=== PATIENT | female | born 1935 | race Caucasian/White ===

== ENCOUNTER → 2016-08-27 | Outpatient (CLI) | payer OTHER ==
[~2016-08-27] MED LIST: ALL100 PO; CLOP1TAB15 PO; COLE1TAB5 PO; CYNI1000 IM; ERGO500037 PO; HYDR-5688 PO; IMD2X PO; MAGN1TAB15 PO; MCR/40125 PO; POTA10CA28 PO; TMF75 PO; ZTHM250 PO
[2016-08-27 18:04] LABS: ALT/SGPT 13 U/L (12-78); AST/SGOT 12 U/L (15-37); BLOOD UREA NITROGEN 22 mg/dl (7-18); BUN/CREATININE RATIO 18.7 (10-20); CALCIUM 9.3 mg/dl (8.5-10.1); CARBON DIOXIDE 28 mmol/L (21-32); CHLORIDE 107 mmol/L (98-107); CHOLESTEROL 216 mg/dl (0-200); GLUCOSE 88 mg/dl (70-99); POTASSIUM 3.3 mmol/L (3.5-5.1); SODIUM 144 mmol/L (136-145); TRIGLYCERIDES 209 mg/dl (0-150); VERY LOW DENSITY LIPOPROT CALC 42 mg/dl
[2016-08-27 18:09] LABS: BASO % 0.6 %; BASO ABS # 0.04 K/uL (0-0.2); COMPLETE YES; EOS % 2.9 %; HEMATOCRIT 40.8 % (37-47); IG% 0.3 %; LYMPH % 20.4 %; LYMPH ABS # 1.39 K/uL (1.2-3.4); MEAN CELL VOLUME 92.5 fL (80-100); MEAN CORPUSCULAR HEMOGLOBIN 31.1 pg (25-34); MEAN CORPUSCULAR HGB CONC 33.6 g/dl (32-36); MEAN PLATELET VOLUME 10.2 fL (7.4-10.4); MONO % 7.3 %; NEUT % 68.5 %; PLATELET COUNT 291 K/uL (130-400); RED BLOOD COUNT 4.41 M/uL (4.2-5.4); WHITE BLOOD COUNT 6.81 K/uL (4.8-10.8)
[2016-08-27 18:14] LABS: CHOLESTEROL/HDL RATIO 2.6; HDL CHOLESTEROL 83 mg/dl; LDL CHOLESTEROL CALCULATED 91 mg/dl
== END | disposition home or self-care (01) ==
LOC: C.LABMFLN 14:50
PROVIDERS: ATTEND Family Medicine
DX: M81.8 Other osteoporosis without current pathological fracture (principal); I10 Essential (primary) hypertension; E53.8 Deficiency of other specified B group vitamins; E55.9 Vitamin D deficiency, unspecified; E78.5 Hyperlipidemia, unspecified

== ENCOUNTER 2016-09-02 18:18 | Inpatient (IN) | payer OTHER ==
[~2016-09-02] VITALS: Ht 152.4 cm; Wt 50.6 kg
[~2016-09-02 18:18] MED LIST changes: -ALL100 PO; -COLE1TAB5 PO; -HYDR-5688 PO; -POTA10CA28 PO; -TMF75 PO; -ZTHM250 PO
[2016-09-02] MEDS ORDERED: COLE1TAB5 PO (19:23)
[2016-09-02] MEDS ORDERED: HYDR-5688 PO (19:23)
[2016-09-02] MEDS ORDERED: POTA10CA28 PO (19:23)
[2016-09-02] MEDS ORDERED: SODIUM CHLORIDE 0.9% 500ML 500 ML IV STA (19:28)
[2016-09-02] MEDS ORDERED: ONDANSETRON INJ 2 MG/ML 2 ML VIAL IV STA (19:28)
[2016-09-02] MEDS ORDERED: SODIUM CHLORIDE 0.9% 1000ML 1,000 ML IV STA (19:28)
[2016-09-02] MEDS ORDERED: HYDROmorphone INJ 1 MG/ML SYR IV PRN (19:30)
[2016-09-02 19:36] LABS: BASO % 0.2 %; BASO ABS # 0.02 K/uL (0-0.2); COMPLETE YES; EOS % 0.4 %; HEMATOCRIT 42.1 % (37-47); IG% 0.2 %; LYMPH % 10.3 %; LYMPH ABS # 1.15 K/uL (1.2-3.4); MEAN CELL VOLUME 92.3 fL (80-100); MEAN CORPUSCULAR HEMOGLOBIN 31.4 pg (25-34); MONO % 10.3 %; NEUT % 78.6 %; PLATELET COUNT 387 K/uL (130-400); RED BLOOD COUNT 4.56 M/uL (4.2-5.4); WHITE BLOOD COUNT 11.14 K/uL (4.8-10.8)
[2016-09-02] MEDS ORDERED: HYDROmorphone INJ 0.5 MG/0.5 ML SYR ONE (19:43)
[2016-09-02 19:59] LABS: BUN/CREATININE RATIO 17.6 (10-20); CALCIUM 10.3 mg/dl (8.5-10.1); CREATININE 1.4 mg/dl (0.60-1.20); POTASSIUM 3.8 mmol/L (3.5-5.1)
--- NOTE | 2016-09-02 20:28 | DIAGNOSTIC IMAGING REPORT ---
ABDOMEN AND PELVIS CT WITHOUT CONTRAST CT DOSE: 243.14 mGy.cm HISTORY: diffuse upper abdominal pain, vomiting, prior sylvia. ?obs TECHNIQUE: Multiaxial CT images of the abdomen and pelvis were performed without contrast. COMPARISON STUDY: PET CT 03/06/2016. FINDINGS: Mild dependent changes seen at the lung bases. Stable 5 mm triangular shaped nodule within the right middle lobe. The configuration is unlikely to represent a metastatic nodule. No pneumoperitoneum. No pneumatosis. No suspicious lytic or blastic osseous lesions. Suboptimal evaluation of the abdomen and pelvis due to the lack of intravenous and oral contrast. No definite hepatic or splenic masses. The unenhanced adrenal glands, pancreas, and right kidney are unremarkable. No hydronephrosis. Stable 12 mm exophytic hypodense lesion within the lower pole the left kidney. This is incompletely characterized on this noncontrast study but favors a cyst. No retroperitoneal lymphadenopathy. The bladder is unremarkable. The uterus is surgically absent. Prior cholecystectomy. Fluid-filled nondistended colon. No bowel wall thickening. The appendix is not identified and may be surgically absent. Multiple mildly dilated fluid-filled loops of bowel seen throughout the majority of the abdomen. There is a transition point within the right lower quadrant of the distal ileum on image 300 of 396. Therefore, this is consistent with a small bowel obstruction. IMPRESSION: Small bowel obstruction with a transition point located within the distal ileum at the right lower quadrant. Additional findings as described above. Electronically signed by: Jarrell Emery M.D. 09/02/2016 8:26 PM Dictated Date/Time: 09/02/2016 8:12 PM
[2016-09-02] MEDS ORDERED: ACETAMINOPHEN IV 100 ML IV PRN (22:45)
[2016-09-02] MEDS ORDERED: ONDANSETRON INJ 2 MG/ML 2 ML VIAL IV PRN (22:45)
--- NOTE | 2016-09-02 23:10 | EMERGENCY ROOM VISIT NOTE ---
History Report prepared by Ciroibe: Madeleine English Under the Supervision of: Dr. Barber Flores M.D. First contact with patient: 19:13 Chief Complaint: NAUSEA Stated Complaint: PAIN IN STOMACH, AND BACK THROWING UP Nursing Triage Summary: Upper abd pain thats radiates to back, started friday. Vomiting since yesterday due to the pain. Denies diarrhea. History of Present Illness The patient is a 81 year old female who presents to the Emergency Room with complaints of worsening mid to upper abdominal pain for the past 3 days. She is accompanied by her and daughter. She rates her discomfort as a 7/10 to a 9/10 and notes the pain radiates into her back. Yesterday she started vomiting because of the amount of pain she has been in. She denies any diarrhea or recent sick contacts, but admits to experiencing the chills over the past few days. She also reports her appetite has been poor recently due to the nausea and pain. The patient has undergone a cholecystectomy but still has her appendix. Her daughter notes she has a history of diverticulosis and kidney stones, but the patient states the current pain she is experiencing is unlike anything she has felt before, as it has lasted much longer. The patient denies LOC, headache, fevers, diaphoresis, visual changes, neck pain, chest pain, breathing difficulties, melena, hematochezia, urinary symptoms, numbness, weakness, lymphadenopathy, rash, or other complaints. 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 A total of ten systems were reviewed and were otherwise negative. Past Medical & Surgical Medical Problems: (1) Diverticulosis (2) Kidney stones (3) SBO (small bowel obstruction) Social History Smoking Status: Never Smoker Alcohol Use: none Drug Use: none Marital Status: Housing Status: lives with family Occupation Status: retired Current/Historical Medications Scheduled Clopidogrel (Plavix), 75 MG PO DAILY Colestipol Hcl (Colestipol Hcl), 1 GM PO BID Cyanocobalamin (Cyanocobalamin), IM MONTHLY Ergocalciferol (Vitamin D 36222 Unit), 1 CAP PO WK Magnesium Chloride-Calcium (Slow Magnesium/Calcium), 1 TAB PO QAM Potassium Chloride (Micro-K Ext Rel), 10 MEQ PO DAILY Telmisartan/Hctz (Micardis Hct 40MG/12.5MG), 1 TAB PO QAM Scheduled PRN Hydrocodone/Acetaminophen 5MG/325MG ([place] 5MG/325MG), 1-2 TABLET PO QID PRN for Pain Loperamide Hcl (Imodium), 2 MG PO DAILY PRN for Diarrhea Allergies Coded Allergies: Lisinopril (Verified Adverse Reaction, Unknown, COUGH, 04/22/16) Physical Exam Vital Signs Date Time Temp Pulse Resp B/P Pulse Ox O2 Delivery O2 Flow Rate FiO2 09/02/16 22:05 71 20 113/60 98 Room Air 09/02/16 20:52 69 20 128/70 98 Room Air 09/02/16 19:51 90 20 136/72 92 Room Air 09/02/16 18:21 36.7 90 17 143/70 96 Room Air Physical Exam GENERAL: Awake, alert, uncomfortable-appearing, in no distress HENT: Normocephalic, atraumatic. Oropharynx unremarkable. EYES: Normal conjunctiva. Sclera non-icteric. NECK: Supple. No nuchal rigidity. FROM. No JVD. RESPIRATORY: Clear to auscultation. CARDIAC: Regular rate, normal rhythm. Extremities warm and well perfused. Pulses equal. ABDOMEN: Soft, non-distended. RLQ and periumbilical tenderness to palpation. No rebound or guarding. No masses. RECTAL: Deferred. MUSCULOSKELETAL: Chest examination reveals no tenderness. The back is symmetrical on inspection without obvious abnormality. There is no CVA tenderness to palpation. No joint edema. LOWER EXTREMITIES: Calves are equal size bilaterally and non-tender. No edema. No discoloration. NEURO: Normal sensorium. No sensory or motor deficits noted. SKIN: No rash or jaundice noted. Medical Decision & Procedures ER Provider Diagnostic Interpretation: This CT scan was reviewed and interpreted by the radiologist and reviewed by myself. ABDOMEN AND PELVIS CT WITHOUT CONTRAST CT DOSE: 243.14 mGy.cm HISTORY: Diffuse upper abdominal pain, vomiting, prior sylvia. ?obs TECHNIQUE: Multiaxial CT images of the abdomen and pelvis were performed without contrast. COMPARISON STUDY: PET CT 03/06/2016. FINDINGS: Mild dependent changes seen at the lung bases. Stable 5 mm triangular shaped nodule within the right middle lobe. The configuration is unlikely to represent a metastatic nodule. No pneumoperitoneum. No pneumatosis. No suspicious lytic or blastic osseous lesions. Suboptimal evaluation of the abdomen and pelvis due to the lack of intravenous and oral contrast. No definite hepatic or splenic masses. The unenhanced adrenal glands, pancreas, and right kidney are unremarkable. No hydronephrosis. Stable 12 mm exophytic hypodense lesion within the lower pole the left kidney. This is incompletely characterized on this noncontrast study but favors a cyst. No retroperitoneal lymphadenopathy. The bladder is unremarkable. The uterus is surgically absent. Prior cholecystectomy. Fluid-filled nondistended colon. No bowel wall thickening. The appendix is not identified and may be surgically absent. Multiple mildly dilated fluid-filled loops of bowel seen throughout the majority of the abdomen. There is a transition point within the right lower quadrant of the distal ileum on image 300 of 396. Therefore, this is consistent with a small bowel obstruction. IMPRESSION: Small bowel obstruction with a transition point located within the distal ileum at the right lower quadrant. Additional findings as described above. Electronically signed by: Jarrell Emery M.D. 09/02/2016 8:26 PM Dictated Date/Time: 09/02/2016 8:12 PM Laboratory Results 09/02/16 19:25 Red Blood Count 4.56, Mean Corpuscular Volume 92.3, Mean Corpuscular Hemoglobin 31.4, Mean Corpuscular Hemoglobin Concent 34.0, Mean Platelet Volume 10.0, Neutrophils (%) (Auto) 78.6, Lymphocytes (%) (Auto) 10.3, Monocytes (%) (Auto) 10.3, Eosinophils (%) (Auto) 0.4, Basophils (%) (Auto) 0.2, Neutrophils # (Auto ) 8.76, Lymphocytes # (Auto) 1.15, Monocytes # (Auto) 1.15, Eosinophils # (Auto ) 0.04, Basophils # (Auto) 0.02 09/02/16 19:25 Test 09/02/16 19:25 White Blood Count 11.14 K/uL (4.8-10.8) Red Blood Count 4.56 M/uL (4.2-5.4) Hemoglobin 14.3 g/dL (12.0-16.0) Hematocrit 42.1 % (37-47) Mean Corpuscular Volume 92.3 fL (80-100) Mean Corpuscular Hemoglobin 31.4 pg (25-34) Mean Corpuscular Hemoglobin Concent 34.0 g/dl (32-36) Platelet Count 387 K/uL (130-400) Mean Platelet Volume 10.0 fL (7.4-10.4) Neutrophils (%) (Auto) 78.6 % Lymphocytes (%) (Auto) 10.3 % Monocytes (%) (Auto) 10.3 % Eosinophils (%) (Auto) 0.4 % Basophils (%) (Auto) 0.2 % Neutrophils # (Auto) 8.76 K/uL (1.4-6.5) Lymphocytes # (Auto) 1.15 K/uL (1.2-3.4) Monocytes # (Auto) 1.15 K/uL (0.11-0.59) Eosinophils # (Auto) 0.04 K/uL (0-0.5) Basophils # (Auto) 0.02 K/uL (0-0.2) RDW Standard Deviation 44.2 fL (36.4-46.3) RDW Coefficient of Variation 13.1 % (11.5-14.5) Immature Granulocyte % (Auto) 0.2 % Immature Granulocyte # (Auto) 0.02 K/uL (0.00-0.02) Anion Gap 9.0 mmol/L (3-11) Est Creatinine Clear Calc Drug Dose 23.4 ml/min Estimated GFR () 41.3 Estimated GFR (Non- 35.6 BUN/Creatinine Ratio 17.6 (10-20) Calcium Level 10.3 mg/dl (8.5-10.1) Total Bilirubin 0.9 mg/dl (0.2-1) Direct Bilirubin 0.2 mg/dl (0-0.2) Aspartate Amino Transf (AST/SGOT) 13 U/L (15-37) Alanine Aminotransferase (ALT/SGPT) 17 U/L (12-78) Alkaline Phosphatase 114 U/L (45-117) Total Protein 7.2 gm/dl (6.4-8.2) Albumin 3.6 gm/dl (3.4-5.0) Lipase 126 U/L (73-393) Laboratory results reviewed by me Medications Administered Medications (Trade) Dose Ordered Sig/Felipa Route Start Time Stop Time Status Last Admin Dose Admin Ondansetron HCl 4 mg 4 mg NOW STAT IV 09/02/16 19:28 09/02/16 19:30 DC 09/02/16 19:47 4 MG Sodium Chloride 500 ml @ 999 mls/hr Q31M STAT IV 09/02/16 19:28 09/02/16 19:58 DC 09/02/16 19:47 999 MLS/HR Sodium Chloride (Nss 1000ml) 1,000 ml @ 125 mls/hr Q8H STAT IV 09/02/16 19:28 09/03/16 03:27 09/02/16 20:57 125 MLS/HR Hydromorphone HCl (Dilaudid Inj) 0.5 mg STK-MED ONCE .ROUTE 09/02/16 19:43 09/02/16 19:45 DC 09/02/16 19:43 0.5 MG ED Course 1923: The patient was evaluated in room C4. A complete history and physical exam was performed. 1927: NSS 1000 ml @ 125 mls/hr IV, NSS 500 ml @ 999 mls/hr IV, Zofran 4 mg IV. 1929: Dilaudid 0.5 mg IV. 1942: Dilaudid 0.5 mg IV. 2043: I reevaluated the patient. She is resting comfortably. I discussed my plan for her to remain in the hospital for further evaluation and management and she and her family verbalized complete understanding and agreement. 2051: I discussed the patient's case with Dr. Bonilla, [facility] Hospitalist. The patient will be further evaluated. Medical Decision Triage Nursing notes reviewed. The patient's presentation and history were concerning for abdominal pain. Etiologies such as appendicitis, diverticulitis, obstruction, inflammatory bowel disease, renal colic, PUD, biliary pathology, pancreatitis, mesenteric ischemia, aortic pathology, infections, genitourinary, UTI, perforated viscus, as well as others were entertained. Patient was evaluated. She was quite tender. Blood work was obtained. She was given Zofran and Dilaudid. She was hydrated. Her CBC revealed a mild leukocytosis of 11,000. Chemistry, LFTs and lipase were unremarkable. Urinalysis is pending. The patient has a small bowel traction on CT scan. On reassessment she was feeling much better. She will need further evaluation and management in the hospital. I did consult with the hospitalist service. The patient was evaluated for further treatment. The chart was completed utilizing [employer] Speech voice recognition software. Grammatical errors, random word insertions, pronoun errors, and incomplete sentences are an occasional consequence of this system due to software limitations, ambient noise, and hardware issues. Any formal questions or concerns about the content, text, or information contained within the body of this dictation should be directly addressed to the physician for clarification. Consults Time Called: 2041 Consulting Physician: Dr. Bonilla [facility] Hospitalist Returned Call: 2051 I discussed the patient's case with Dr. Bonilla [facility] Hospitalist. The patient will be further evaluated. Impression Primary Impression: Small bowel obstruction Scribe Attestation The scribe's documentation has been prepared under my direction and personally reviewed by me in its entirety. I confirm that the note above accurately reflects all work, treatment, procedures, and medical decision making performed by me. Departure Information Dispostion Being Evaluated By Hospitalist Referrals Mikel Sanford M.D. (PCP) Patient Instructions A Signature Page, [facility]
[2016-09-02 23:25] VITALS: BP 113/69; PULSE 77; TEMP 36.3; O2SAT 92; Ht 152.4 cm; Wt 50.6 kg
[2016-09-03] MEDS ORDERED: PIPERACILL/TAZOBAC IV 3.375 GM in DEXTROSE 5% 100ML IV STA (00:52)
[2016-09-03] MEDS ORDERED: PIPERACILL/TAZOBAC CONSULT ACTIVE PRN (01:00)
[2016-09-03] MEDS ORDERED: NURSING VERBAL MED ORDER ONE (02:00)
--- NOTE | 2016-09-03 02:26 | History and Physical ---
History & Physical Date & Time of Service: Sep 03, 2016 at 02:15 Chief Complaint: SBO Primary Care Physician: Mikel Sanford M.D. History of Present Illness Source: patient, family The patient is a 81-year-old female who presents to the emergency department with family with complaints of worsening umbilical epigastric area pain over the past 3 days, particular over the past 24 hours. Her family notes that she had some on and off episodes of this discomfort dating back to a month or more. She started to vomit yesterday and has not had anything significantly over the past 48 hours. She has no sick contacts or recent travels. She does have a history of a cholecystectomy. The patient has had diverticulosis and kidney stones in the past, but reports that this pain is unlike any of those occurrences previously. Social History Smoking Status: Never Smoker Smokeless Tobacco Use: No Alcohol Use: none Drug Use: none Marital Status: Housing status: lives with family Occupational Status: retired Multi-Drug Resistant Organisms History of MDRO: No Allergies Coded Allergies: Lisinopril (Verified Adverse Reaction, Unknown, COUGH, 04/22/16) Home Medications Scheduled Clopidogrel (Plavix), 75 MG PO DAILY Colestipol Hcl (Colestipol Hcl), 1 GM PO BID Cyanocobalamin (Cyanocobalamin), IM MONTHLY Ergocalciferol (Vitamin D 47409 Unit), 1 CAP PO WK Magnesium Chloride-Calcium (Slow Magnesium/Calcium), 1 TAB PO QAM Potassium Chloride (Micro-K Ext Rel), 10 MEQ PO DAILY Telmisartan/Hctz (Micardis Hct 40MG/12.5MG), 1 TAB PO QAM Scheduled PRN Hydrocodone/Acetaminophen 5MG/325MG ([place] 5MG/325MG), 1-2 TABLET PO QID PRN for Pain Loperamide Hcl (Imodium), 2 MG PO DAILY PRN for Diarrhea Review of Systems The patient denies chest pain, palpitations, shortness of breath, cough, lower extremity swelling, vision change, hearing change, sore throat, fevers, chills, sweats, blood in urine or stool, dysuria, urinary frequency or urgency, lightheadedness, dizziness, headache, rash, abnormal bruising or bleeding, imbalance, focal weakness, numbness or tingling in arms or legs, arthralgias or myalgias, back or neck pain, night sweats, or allergy symptoms. The review of systems is otherwise negative other than for that already noted above, and at least 10 systems have been reviewed. Physical Exam Vital Signs Date Time Temp Pulse Resp B/P Pulse Ox O2 Delivery O2 Flow Rate FiO2 09/02/16 23:25 Room Air 09/02/16 23:18 68 20 109/56 99 09/02/16 22:05 71 20 113/60 98 Room Air 09/02/16 20:52 69 20 128/70 98 Room Air 09/02/16 19:51 90 20 136/72 92 Room Air 09/02/16 18:21 36.7 90 17 143/70 96 Room Air The patient is awake, well-developed and adequately nourished, alert and oriented 3, normocephalic and atraumatic, lying in bed and in no acute distress. HEENT--PERRL, mucous membranes and oropharynx dry. Neck--supple, no JVD or bruits, thyroid normal, trachea midline, no adenopathy. Heart--normal S1 and S2, no extra beats, no murmurs, rubs or gallops. Lungs--clear bilaterally. no respiratory distress, no accessory muscle use. Abdomen--decreased bowel sounds, mildly firm, nontender post-Dilaudid IV. Extremities--no cyanosis, clubbing or edema. There are good distal pulses b/l. Dermatologic--normal skin turgor, normal color, warm and dry, no abnormal lymph nodes, no rash. Neurologic--cranial nerves II through XII grossly intact. Psychiatric--normal affect. Diagnostics Laboratory Results Results Past 24 Hours Test 09/02/16 19:25 Range/Units White Blood Count 11.14 4.8-10.8 K/uL Red Blood Count 4.56 4.2-5.4 M/uL Hemoglobin 14.3 12.0-16.0 g/dL Hematocrit 42.1 37-47 % Mean Corpuscular Volume 92.3 80-100 fL Mean Corpuscular Hemoglobin 31.4 25-34 pg Mean Corpuscular Hemoglobin Concent 34.0 32-36 g/dl Platelet Count 387 130-400 K/uL Mean Platelet Volume 10.0 7.4-10.4 fL Neutrophils (%) (Auto) 78.6 % Lymphocytes (%) (Auto) 10.3 % Monocytes (%) (Auto) 10.3 % Eosinophils (%) (Auto) 0.4 % Basophils (%) (Auto) 0.2 % Neutrophils # (Auto) 8.76 1.4-6.5 K/uL Lymphocytes # (Auto) 1.15 1.2-3.4 K/uL Monocytes # (Auto) 1.15 0.11-0.59 K/uL Eosinophils # (Auto) 0.04 0-0.5 K/uL Basophils # (Auto) 0.02 0-0.2 K/uL RDW Standard Deviation 44.2 36.4-46.3 fL RDW Coefficient of Variation 13.1 11.5-14.5 % Immature Granulocyte % (Auto) 0.2 % Immature Granulocyte # (Auto) 0.02 0.00-0.02 K/uL Sodium Level 144 136-145 mmol/L Potassium Level 3.8 3.5-5.1 mmol/L Chloride Level 102 98-107 mmol/L Carbon Dioxide Level 33 21-32 mmol/L Anion Gap 9.0 3-11 mmol/L Blood Urea Nitrogen 25 7-18 mg/dl Creatinine 1.40 0.60-1.20 mg/dl Est Creatinine Clear Calc Drug Dose 23.4 ml/min Estimated GFR () 41.3 Estimated GFR (Non- 35.6 BUN/Creatinine Ratio 17.6 10-20 Random Glucose 119 70-99 mg/dl Calcium Level 10.3 8.5-10.1 mg/dl Total Bilirubin 0.9 0.2-1 mg/dl Direct Bilirubin 0.2 0-0.2 mg/dl Aspartate Amino Transf (AST/SGOT) 13 15-37 U/L Alanine Aminotransferase (ALT/SGPT) 17 12-78 U/L Alkaline Phosphatase 114 45-117 U/L Total Protein 7.2 6.4-8.2 gm/dl Albumin 3.6 3.4-5.0 gm/dl Lipase 126 73-393 U/L Diagnostic Radiology Patient Name: MIGUEL TORRES Unit Number: [id number] Dictated: 09/02/162011 Transcribed: 09/02/16 2012 [facility] Printed Date/Time: [~ rep prt dt]/[~ rep prt tm] [~ rep ct labl] - [~ rep ct ivnm] [facility] [place] [address] Dictated: 09/02/162011 Transcribed: 09/02/162011 [facility] Printed Date/Time: [~ rep prt dt]/[~ rep prt tm] [~ rep ct labl] - [~ rep ct ivnm] ABDOMEN AND PELVIS CT WITHOUT CONTRAST CT DOSE: 243.14 mGy.cm HISTORY: diffuse upper abdominal pain, vomiting, prior sylvia. ?obs TECHNIQUE: Multiaxial CT images of the abdomen and pelvis were performed without contrast. COMPARISON STUDY: PET CT 03/06/2016. FINDINGS: Mild dependent changes seen at the lung bases. Stable 5 mm triangular shaped nodule within the right middle lobe. The configuration is unlikely to represent a metastatic nodule. No pneumoperitoneum. No pneumatosis. No suspicious lytic or blastic osseous lesions. Suboptimal evaluation of the abdomen and pelvis due to the lack of intravenous and oral contrast. No definite hepatic or splenic masses. The unenhanced adrenal glands, pancreas, and right kidney are unremarkable. No hydronephrosis. Stable 12 mm exophytic hypodense lesion within the lower pole the left kidney. This is incompletely characterized on this noncontrast study but favors a cyst. No retroperitoneal lymphadenopathy. The bladder is unremarkable. The uterus is surgically absent. Prior cholecystectomy. Fluid-filled nondistended colon. No bowel wall thickening. The appendix is not identified and may be surgically absent. Multiple mildly dilated fluid-filled loops of bowel seen throughout the majority of the abdomen. There is a transition point within the right lower quadrant of the distal ileum on image 300 of 396. Therefore, this is consistent with a small bowel obstruction. IMPRESSION: Small bowel obstruction with a transition point located within the distal ileum at the right lower quadrant. Additional findings as described above. Electronically signed by: Jarrell Emery M.D. 09/02/2016 8:26 PM Dictated Date/Time: 09/02/2016 8:12 PM The status of this report is Signed. Draft = Not yet reviewed or approved by Radiologist. Signed = Reviewed and approved by Radiologist. <AttendingPhy></AttendingPhy> <FamilyPhy>Mikel Sanford M.D.</FamilyPhy> < PrimaryPhy>Mikel Sanford M.D.</PrimaryPhy> <UnitNumber>[id number]</UnitNumber> < VisitNumber>[id number]</VisitNumber> <PatientName>MIGUEL TORRES</ PatientName> <DateOfBirth>1935</DateOfBirth> <Location>JET</Location> < ServiceDate>09/02/16</ServiceDate> <MNE>ESINDI</MNE> <OrderingPhy>Barber Flores MD</OrderingPhy> <OrderingPhyMNE>f rep ord dr john</OrderingPhyMNE> < DictatingPhyMNE>f rep dict dr john</DictatingPhyMNE> <CCListMNE>f rep ct alvaro</ CCListMNE> <AdmittingPhyMNE>f pt admit dr john</AdmittingPhyMNE> <AttendingPhyMNE >f pt attend dr john</AttendingPhyMNE> <ConsultingPhyMNE>f pt consult dr john</ConsultingPhyMNE> <FamilyPhyMNE>f pt fam dr john</FamilyPhyMNE> <OtherPhyMNE>f pt other dr john</OtherPhyMNE> < PrimaryPhyMNE>f pt prim care dr john</PrimaryPhyMNE> <ReferringPhyMNE>f pt referring dr john</ReferringPhyMNE> Impression Assessment and Plan Small bowel obstruction, with transition point involving the distal ileum in the right lower quadrant--patient will be admitted to the medical floor. She' ll be kept nothing by mouth, placed on normal saline at 100 mils per hour, Zosyn 3.375 mg IV every 12 hours, Zofran 4 mg IV every 6 hours when necessary, Protonix 40 mg IV daily. We'll follow serial KUB x-rays. Hypertension/Renal insufficiency--creatinine upon admission 1.40, will place on IV fluids as noted above, and follow serial BMP and magnesium levels. Will hold Gemzar 10/HCTZ 40/12.5 every morning, and potassium chloride 10 mg by mouth daily, and Slow-Mag with calcium one by mouth every morning. Hypercholesterolemia--hold colestipol 1 g by mouth twice a day. Vascular disease--hold Plavix 75 mg by mouth daily while nothing by mouth. Level of Care Med/Surg Advanced Directives Existing Advance Directive: No Existing Living Will: No Existing Power of Hoisting Pile Driving Engineer: No Resuscitation Status FULL RESUSCITATION VTE Prophylaxis VTE Risk Assessment Done? Y/N: Yes Risk Level: Moderate Given or contraindicated: SCD's Social Service Consult None Apply
[2016-09-03] MEDS: SODIUM CHLORIDE 0.9% 1000ML 1,000 ML IV SCH ×2 (02:45→12:07)
[2016-09-03 03:07] LABS: URINE APPEARANCE CLEAR (CLEAR); URINE BILIRUBIN NEG (NEG); URINE COLOR YELLOW; URINE EPITHELIAL CELL AUTO 20-30 /lpf (0-5); URINE NITRITE NEG (NEG); URINE SPECIFIC GRAVITY 1.017 (1.000-1.030); UROBILINOGEN NEG (NEG); ZZUR CULT IF INDIC CLEAN CATCH NO
[2016-09-03 03:15] LABS: MANUAL MICROSCOPIC REQUIRED? NO; REVIEW REQ? NO
[2016-09-03] MEDS ORDERED: PIPERACILL/TAZOBAC IV 3.375 GM in DEXTROSE 5% 100ML IV SCH (05:00)
[2016-09-03 07:09] VITALS: BP 91/53; PULSE 69; TEMP 36.7; O2SAT 92
[2016-09-03 08:01] LABS: BUN/CREATININE RATIO 18.5 (10-20); CALCIUM 8.5 mg/dl (8.5-10.1); CREATININE 1.1 mg/dl (0.60-1.20); MAGNESIUM 1.7 mg/dl (1.8-2.4); POTASSIUM 3.5 mmol/L (3.5-5.1)
[2016-09-03 08:24] LABS: BASO % 0.5 %; BASO ABS # 0.03 K/uL (0-0.2); COMPLETE YES; EOS % 1.7 %; HEMATOCRIT 32.3 % (37-47); IG% 0.2 %; LYMPH % 21.8 %; LYMPH ABS # 1.39 K/uL (1.2-3.4); MEAN CELL VOLUME 94.4 fL (80-100); MEAN CORPUSCULAR HEMOGLOBIN 30.7 pg (25-34); MEAN CORPUSCULAR HGB CONC 32.5 g/dl (32-36); MEAN PLATELET VOLUME 10.1 fL (7.4-10.4); MONO % 9.2 %; NEUT % 66.6 %; PLATELET COUNT 273 K/uL (130-400); RED BLOOD COUNT 3.42 M/uL (4.2-5.4); WHITE BLOOD COUNT 6.38 K/uL (4.8-10.8)
[2016-09-03] MEDS ORDERED: PIPERACILL/TAZOBAC IV 3.375 GM in DEXTROSE 5% 100ML 100 ML IV SCH (09:00)
[2016-09-03] MEDS: PANTOprazole INJ 40 MG in SYRINGE 0 ML IV SCH ×2 (10:47→14:07)
--- NOTE | 2016-09-03 11:54 | Clinical Documentation Query ---
CLINICAL DOCUMENTATION QUERY Dr. GRUBER, In your clinical opinion is this patient being managed for: ( x ) Acute kidney injury on CKD stage III ( ) Other explanation of clinical findings (Please Explain) ( ) Unable to determine (Please Define) ( ) Need to Discuss ( ) Not Agree The medical record reflects the following clinical findings, treatment, and risk factors. Clinical Indicators: 81 yo female presented with BUN 25, Cr 1.4. Cr has trended down to 1.10. GFR range of 43-53 over the past 2 years. Treatment: IV fluids, daily PRP's Risk Factors: age, bowel obstruction Please clarify and document your clinical opinion in the progress notes and discharge summary. Terms such as "probable", "suspected", "likely", "questionable", "possible", or "still to be ruled out" are acceptable. IF IN AGREEMENT, YOU MUST DOCUMENT ABOVE DIAGNOSTIC STATEMENT IN DAILY PROGRESS NOTES AND DISCHARGE SUMMARY. This document is not part of the patient's record. Thank You, Tiki Ford, MAIK [phone]
--- NOTE | 2016-09-03 12:32 | Progress Note ---
Subjective Subjective Date of Service: Sep 03, 2016. Pt evaluation today including: conversation w/ patient, physical exam, chart review, review of studies, review of inpatient medication list Notes: no BMs, passed gas Problem List Medical Problems: (1) Small bowel obstruction Status: Acute Review of Systems Constitutional: No fever, No weight loss ENT: No hearing loss Respiratory: No cough Cardiac: No chest pain Abdomen: No pain Female : No dysuria Neurologic: No memory loss Psychiatric: No depression symptoms Endo: No fatigue Physical Exam Vital Signs Vital Signs Past 24 Hours: Date Time Temp Pulse Resp B/P Pulse Ox O2 Delivery O2 Flow Rate FiO2 09/03/16 07:15 Room Air 09/03/16 07:09 36.7 69 20 91/53 92 Room Air 09/02/16 23:25 36.3 77 20 113/69 92 Room Air 09/02/16 23:25 Room Air 09/02/16 23:18 68 20 109/56 99 09/02/16 22:05 71 20 113/60 98 Room Air 09/02/16 20:52 69 20 128/70 98 Room Air 09/02/16 19:51 90 20 136/72 92 Room Air 09/02/16 18:21 36.7 90 17 143/70 96 Room Air Physical Exam: General Appearance: WD/WN, no apparent distress Eyes: bilateral eyes normal inspection ENT: hearing grossly normal, pharynx normal Neck: supple, no adenopathy, no JVD Respiratory/Chest: lungs clear, no respiratory distress Cardiovascular: no edema, no gallop Abdomen: normal bowel sounds, soft Extremities: normal inspection Neurologic/Psychiatric: normal mood/affect Skin: warm/dry Medications Medications: Current Inpatient Medications Medications (Trade) Dose Ordered Sig/Felipa Route Start Time Stop Time Status Last Admin Dose Admin Ondansetron HCl 4 mg 4 mg Q6H PRN IV 09/02/16 22:45 10/02/16 22:44 Acetaminophen 100 ml @ 400 mls/hr Q8H PRN IV 09/02/16 22:45 10/02/16 22:44 Pantoprazole Sodium 40 mg/ Syringe 10 ml @ 5 mls/min DAILY@11 IV 09/03/16 11:00 10/03/16 10:59 09/03/16 10:47 5 MLS/MIN Piperacillin Sod/ Tazobactam Sod/ Dextrose (Zosyn Iv/D5 100ml) 115 ml @ 28.75 mls/ hr Q8H IV 09/03/16 05:00 09/13/16 04:59 09/03/16 05:13 28.75 MLS/HR Piperacillin Sod/ Tazobactam Sod 1 ea 1 ea UD PRN N/A 09/03/16 01:00 10/03/16 00:59 Sodium Chloride (Nss 1000ml) 1,000 ml @ 100 mls/hr Q10H IV 09/03/16 02:00 10/03/16 01:59 09/03/16 12:07 100 MLS/HR Laboratory Data Labs: Last 24 Hours Test 09/02/16 19:25 09/03/16 02:55 09/03/16 06:40 09/03/16 06:46 White Blood Count 11.14 K/uL 6.38 K/uL Red Blood Count 4.56 M/uL 3.42 M/uL Hemoglobin 14.3 g/dL 10.5 g/dL Hematocrit 42.1 % 32.3 % Mean Corpuscular Volume 92.3 fL 94.4 fL Mean Corpuscular Hemoglobin 31.4 pg 30.7 pg Mean Corpuscular Hemoglobin Concent 34.0 g/dl 32.5 g/dl Platelet Count 387 K/uL 273 K/uL Mean Platelet Volume 10.0 fL 10.1 fL Neutrophils (%) (Auto) 78.6 % 66.6 % Lymphocytes (%) (Auto) 10.3 % 21.8 % Monocytes (%) (Auto) 10.3 % 9.2 % Eosinophils (%) (Auto) 0.4 % 1.7 % Basophils (%) (Auto) 0.2 % 0.5 % Neutrophils # (Auto) 8.76 K/uL 4.25 K/uL Lymphocytes # (Auto) 1.15 K/uL 1.39 K/uL Monocytes # (Auto) 1.15 K/uL 0.59 K/uL Eosinophils # (Auto) 0.04 K/uL 0.11 K/uL Basophils # (Auto) 0.02 K/uL 0.03 K/uL RDW Standard Deviation 44.2 fL 45.9 fL RDW Coefficient of Variation 13.1 % 13.3 % Immature Granulocyte % (Auto) 0.2 % 0.2 % Immature Granulocyte # (Auto) 0.02 K/uL 0.01 K/uL Sodium Level 144 mmol/L 147 mmol/L Potassium Level 3.8 mmol/L 3.5 mmol/L Chloride Level 102 mmol/L 109 mmol/L Carbon Dioxide Level 33 mmol/L 28 mmol/L Anion Gap 9.0 mmol/L 10.0 mmol/L Blood Urea Nitrogen 25 mg/dl 20 mg/dl Creatinine 1.40 mg/dl 1.10 mg/dl Est Creatinine Clear Calc Drug Dose 23.4 ml/min 29.8 ml/min Estimated GFR () 41.3 55.3 Estimated GFR (Non- 35.6 47.7 BUN/Creatinine Ratio 17.6 18.5 Random Glucose 119 mg/dl 95 mg/dl Calcium Level 10.3 mg/dl 8.5 mg/dl Total Bilirubin 0.9 mg/dl Direct Bilirubin 0.2 mg/dl Aspartate Amino Transf (AST/SGOT) 13 U/L Alanine Aminotransferase (ALT/SGPT) 17 U/L Alkaline Phosphatase 114 U/L Total Protein 7.2 gm/dl Albumin 3.6 gm/dl Lipase 126 U/L Urine Color YELLOW Urine Appearance CLEAR Urine pH 5.0 Urine Specific [place] 1.017 Urine Protein NEG Urine Glucose (UA) NEG Urine Ketones NEG Urine Occult Blood NEG Urine Nitrite NEG Urine Bilirubin NEG Urine Urobilinogen NEG Urine Leukocyte Esterase MODERATE Urine WBC (Auto) 5-10 /hpf Urine RBC (Auto) 0-4 /hpf Urine Hyaline Casts (Auto) 1-5 /lpf Urine Epithelial Cells (Auto) 20-30 /lpf Urine Bacteria (Auto) NEG Magnesium Level 1.7 mg/dl Assessment and Plan Small bowel obstruction, with transition point involving the distal ileum in the right lower quadrant continue medical floor. advance diet to full liquds and see if tolerates it stop Zosyn 3.375 mg IV every 12 hours, continue Zofran 4 mg IV every 6 hours when necessary, Protonix 40 mg IV daily. We'll follow serial KUB x-rays. Hypertension, stable, hold Gemzar 10/HCTZ 40/12.5 every morning Acute kidney injury on ckd stage 3. creatinine upon admission 1.40, improved with IVF, stop IVF Hypercholesterolemia, hold colestipol 1 g by mouth twice a day. Vascular disease, hold Plavix 75 mg by mouth daily while nothing by mouth. DVT/GI proph FULL Code will observe overnight and if tolerates diet and moves her bowels, she will be d /brandee home tomorrow pending PT/OT eval
[2016-09-03 15:20] VITALS: BP 94/56; PULSE 65; TEMP 36.7; O2SAT 95
[2016-09-03 23:10] VITALS: BP 114/68; PULSE 67; TEMP 36.3; O2SAT 95
[2016-09-04 07:08] VITALS: BP 106/65; PULSE 65; TEMP 36.5; O2SAT 95
[2016-09-04 07:13] LABS: BASO ABS # 0.05 K/uL (0-0.2); COMPLETE YES; EOS % 2.5 %; HEMATOCRIT 33.7 % (37-47); IG% 0.2 %; LYMPH % 25.6 %; LYMPH ABS # 1.24 K/uL (1.2-3.4); MEAN CELL VOLUME 94.7 fL (80-100); MEAN CORPUSCULAR HEMOGLOBIN 30.6 pg (25-34); MEAN CORPUSCULAR HGB CONC 32.3 g/dl (32-36); MEAN PLATELET VOLUME 10.3 fL (7.4-10.4); MONO % 8.9 %; NEUT % 61.8 %; PLATELET COUNT 277 K/uL (130-400); RED BLOOD COUNT 3.56 M/uL (4.2-5.4); WHITE BLOOD COUNT 4.85 K/uL (4.8-10.8)
[2016-09-04 07:54] LABS: BUN/CREATININE RATIO 11.5 (10-20); CREATININE 1.1 mg/dl (0.60-1.20); MAGNESIUM 1.8 mg/dl (1.8-2.4); POTASSIUM 3.5 mmol/L (3.5-5.1)
[2016-09-04] MEDS: PANTOprazole INJ 40 MG in SYRINGE 0 ML IV SCH (10:43)
--- NOTE | 2016-09-04 10:47 | Discharge Instructions ---
Discharge Instructions Admission Reason for Admission: SBO Discharge Discharge Diagnosis / Problem: SBO Discharge Goals Goal(s): Decrease discomfort, Increase independence, Improve disease control, Diagnostic testing, Therapeutic intervention Activity Recommendations Activity Limitations: resume your previous activity . Instructions / Follow-Up Instructions / Follow-Up low fiber diet for 2 weeks than advance to regular diet keep well hydrated Current Hospital Diet Patient's current hospital diet: Low Fiber Diet Discharge Diet Recommended Diet: Low Fiber Diet (for 2 weeks than advance to regular diet) Pending Studies Studies pending at discharge: no Laboratory Results Lipid Panel Test 08/27/16 16:03 Range/Units Triglycerides Level 209 H 0-150 mg/dl Cholesterol Level 216 H 0-200 mg/dl HDL Cholesterol 83 mg/dl Cholesterol/HDL Ratio 2.6 LDL Cholesterol, Calculated 91 mg/dl Medical Emergencies . Who to Call and When: Medical Emergencies: If at any time you feel your situation is an emergency, please call 911 immediately. . Non-Emergent Contact Non-Emergency issues call your: Primary Care Provider Call Non-Emergent contact if: you have a fever, your pain is not controlled . Past History Medical & Surgical History: (1) SBO (small bowel obstruction) . "Provider Documentation" section prepared by Virgilio Price. VTE Core Measure Inpt VTE Proph given/why not?: SCD's
--- NOTE | 2016-09-04 10:51 | Discharge Summary ---
Discharge Summary Admission Date: Sep 02, 2016 at 22:42 Discharge Date: Sep 04, 2016 Discharge Disposition: Home Principal Diagnosis: SBO Medication Reconciliation Continued Medications: Clopidogrel (Plavix) 75 Mg Tab 75 MG PO DAILY, TAB Colestipol Hcl (Colestipol Hcl) 1 Gm Tab 1 GM PO BID Cyanocobalamin (Cyanocobalamin) 1,000 Mcg/Ml Inj IM MONTHLY Ergocalciferol (Vitamin D 47511 Unit) 50,000 Unit Cap 1 CAP PO WK, CAP 5 Refills Hydrocodone/Acetaminophen 5MG/325MG ([place] 5MG/325MG) Tab 1-2 TABLET PO QID PRN for Pain, TAB PRN PAIN Loperamide Hcl (Imodium) 2 Mg Cap 2 MG PO DAILY PRN for Diarrhea, CAP Magnesium Chloride-Calcium (Slow Magnesium/Calcium) 1 Tab Tab 1 TAB PO QAM Potassium Chloride (Micro-K Ext Rel) 10 Meq Capcr 10 MEQ PO DAILY, CAP Telmisartan/Hctz (Micardis Hct 40MG/12.5MG) Tab 1 TAB PO QAM, TAB Referrals At Discharge Follow up Referrals: Physician Referral - Within 2 Weeks with Mikel Sanford M.D. Discharge Exam Review of Systems: Constitutional: No chills ENT: No unusual epistaxis Respiratory: No sputum Abdomen: No nausea Genitourinary - Female: No dysuria Neurologic: No memory loss Psychiatric: No depression symptoms Endocrine: No fatigue Physical Exam: General Appearance: WD/WN, no apparent distress Eyes: normal inspection, EOMI ENT: hearing grossly normal, pharynx normal Neck: supple, no JVD Respiratory/Chest: lungs clear, no respiratory distress Cardiovascular: no edema, no JVD Abdomen / GI: non tender, no organomegaly Extremities: no calf tenderness, no pedal edema Neurologic/Psychiatric: alert, normal mood/affect Skin: warm/dry Hospital Course Small bowel obstruction, with transition point involving the distal ileum in the right lower quadrant continue medical floor. tolerated diet, no pain, moved BM Hypertension, stable, Gemzar 10/HCTZ 40/12.5 every morning Acute kidney injury on ckd stage 3. creatinine upon admission 1.40, improved with IVF, stopped IVF Hypercholesterolemia, colestipol 1 g by mouth twice a day. Vascular disease, Plavix 75 mg by mouth daily while nothing by mouth. d/c home Total Time Spent: Greater than 30 minutes This includes examination of the patient, discharge planning, medication reconciliation, and communication with other providers. Discharge Instructions Please refer to the electronic Patient Visit Report (Discharge Instructions) for additional information. Additional Copies To Mikel Sanford M.D.
[2016-09-04 11:01] VITALS: BP 106/65; PULSE 65; TEMP 36.5; O2SAT 95
[2016-12-04] MEDS ORDERED: TMF75 PO (11:11)
[2016-12-04] MEDS ORDERED: ZTHM250 PO (11:11)
== END 2016-09-04 16:01 | disposition home or self-care (01) | DRG 389 ==
LOC: ENRESERVTM → ENRESERVDT → C.EDB 18:20 → C.MSW 22:42
PROVIDERS: ADMIT Hospitalist; ATTEND Hospitalist
DX: K56.60 Unspecified intestinal obstruction (principal); N17.9 Acute kidney failure, unspecified; I12.9 Hypertensive chronic kidney disease with stage 1 through stage 4 chronic kidney disease, or unspecified chronic kidney disease; N18.3 Chronic kidney disease, stage 3 (moderate); E78.00 Pure hypercholesterolemia, unspecified

== ENCOUNTER → 2016-09-10 | Outpatient (CLI) | payer OTHER ==
[~2016-09-10] MED LIST changes: +ALL100 PO; +COLE1TAB5 PO; +HYDR-5688 PO; +POTA10CA28 PO; +TMF75 PO; +ZTHM250 PO
[2016-09-10 18:52] LABS: BASO % 0.7 %; BASO ABS # 0.06 K/uL (0-0.2); COMPLETE YES; EOS % 1.2 %; HEMATOCRIT 38.7 % (37-47); IG% 0.4 %; LYMPH ABS # 1.83 K/uL (1.2-3.4); MEAN CELL VOLUME 92.1 fL (80-100); MEAN CORPUSCULAR HEMOGLOBIN 31.4 pg (25-34); MEAN CORPUSCULAR HGB CONC 34.1 g/dl (32-36); MEAN PLATELET VOLUME 10.4 fL (7.4-10.4); MONO % 8.3 %; NEUT % 67.4 %; PLATELET COUNT 349 K/uL (130-400)
[2016-09-10 19:06] LABS: BLOOD UREA NITROGEN 19 mg/dl (7-18); GLUCOSE 88 mg/dl (70-99)
[2016-09-10 19:07] LABS: CALCIUM 9.5 mg/dl (8.5-10.1); CARBON DIOXIDE 28 mmol/L (21-32); CHLORIDE 104 mmol/L (98-107); POTASSIUM 3.5 mmol/L (3.5-5.1); SODIUM 143 mmol/L (136-145)
[2016-09-10 19:10] LABS: TOTAL IRON BINDING CAPACITY 369 mcg/dl (250-450)
== END | disposition home or self-care (01) ==
LOC: C.LABMFLN 08:20
PROVIDERS: ATTEND Family Medicine
DX: K56.69 Other intestinal obstruction (principal)

== ENCOUNTER → 2016-10-29 | Outpatient (CLI) | payer OTHER ==
[2016-11-04 18:30] LABS: IGA SERUM 107 mg/dL (81-463); TIS TRANS IGA 1 U/mL (<4)
== END | disposition home or self-care (01) ==
LOC: C.LABMFLN 15:05
PROVIDERS: ATTEND Family Medicine
DX: K52.9 Noninfective gastroenteritis and colitis, unspecified (principal)

== ENCOUNTER → 2016-11-02 | Outpatient (CLI) | payer OTHER | END | disposition home or self-care (01) | LOC: C.LABSPEC 13:29 | PROVIDERS: ATTEND Family Medicine | DX: Z00.00 Encounter for general adult medical examination without abnormal findings (principal) ==

== ENCOUNTER → 2016-11-04 | Outpatient (CLI) | payer OTHER | END | disposition home or self-care (01) | LOC: C.LABMFLN 11:00 | PROVIDERS: ATTEND Family Medicine | DX: M19.90 Unspecified osteoarthritis, unspecified site (principal) ==

== ENCOUNTER → 2016-11-14 | Outpatient (CLI) | payer OTHER ==
[2016-11-18 16:11] LABS: O&P GIARDIA AG NOT DETECTED (NOT DETECTED)
== END | disposition home or self-care (01) ==
LOC: C.LABMFLN 08:55
PROVIDERS: ATTEND Family Medicine
DX: Z00.00 Encounter for general adult medical examination without abnormal findings (principal); K52.9 Noninfective gastroenteritis and colitis, unspecified

== ENCOUNTER 2016-12-02 16:49 | Inpatient (IN) | payer OTHER ==
[~2016-12-02] VITALS: Ht 152.4 cm; Wt 49.1 kg
[~2016-12-02 16:49] MED LIST changes: -ALL100 PO; -TMF75 PO; -ZTHM250 PO
[2016-12-02] MEDS ORDERED: SODIUM CHLORIDE 0.9% 1000ML 500 ML IV ONE (17:28)
[2016-12-02] MEDS ORDERED: PIPERACILLIN/TAZOBACTAM 4.5 GM/100ML D5W IV STA (17:28)
[2016-12-02] MEDS ORDERED: ALL100 PO (17:41)
--- NOTE | 2016-12-02 17:47 | EMERGENCY ROOM VISIT NOTE ---
History Report prepared by Eli: Fela Galindo Under the Supervision of: Dr. Mikel Fish M.D. First contact with patient: 17:22 Chief Complaint: WEAKNESS Stated Complaint: COUGH,WEAKNESS History of Present Illness The patient is a 81 year old female who presents to the Emergency Room with complaints of a persistent productive cough that began a few days ago. The patient states that she started with head cold symptoms about a week ago and she gradually developed a cough. She also complains of increased shortness of breath that began 2 days ago. She does not wear oxygen at home, although upon nasal canula placement in the ED, she has started to feel better. Currently, she feels generally weak. She does not feel that she has been keeping up with fluids. She complains that she has a decreased appetite. The patient does not have a history of COPD, asthma, or pneumonia. She does report a history of DVT in her left leg following plantar fascitis. She was on Coumadin for the DVT but is not taking this medication currently. She is now on Plavix. Her left leg has been swollen compared to the right at baseline since the blood clot. She had this year's flu shot. The patient has loose bowels at baseline and denies any acute bowel problems. Denies fevers, chills, or other complaints. The patient called her PCP's office this afternoon in regards to her symptoms and was referred to the ED. Source of History: patient Onset: a few days ago Position: other (global) Quality: other (productive) Timing: other (persistent) Associated Symptoms: + SOB (better with oxygen), + weakness, No chills, No fevers Review of Systems See HPI for pertinent positives & negatives. A total of 10 systems reviewed and were otherwise negative. Past Medical & Surgical Medical Problems: (1) Diverticulosis (2) Kidney stones (3) SBO (small bowel obstruction) Family History No pertinent family history stated. Social History Smoking Status: Never Smoker Alcohol Use: none Drug Use: none Marital Status: Housing Status: lives with family Occupation Status: retired Current/Historical Medications Scheduled Allopurinol (Allopurinol), 1 TAB PO DAILY Clopidogrel (Plavix), 75 MG PO DAILY Cyanocobalamin (Cyanocobalamin), IM MONTHLY Ergocalciferol (Vitamin D 73386 Unit), 1 CAP PO WK Potassium Chloride (Micro-K Ext Rel), 10 MEQ PO DAILY Telmisartan/Hctz (Micardis Hct 40MG/12.5MG), 1 TAB PO QAM Scheduled PRN Loperamide Hcl (Imodium), 2 MG PO DAILY PRN for Diarrhea Allergies Coded Allergies: Ciprofloxacin (Unverified Allergy, Unknown, UNKNOWN, 12/02/16) Lisinopril (Verified Adverse Reaction, Unknown, COUGH, 12/02/16) Physical Exam Vital Signs Date Time Temp Pulse Resp B/P Pulse Ox O2 Delivery O2 Flow Rate FiO2 12/02/16 18:18 83 20 110/72 94 Nasal Cannula 2.0 12/02/16 18:17 94 Nasal Cannula 2.0 12/02/16 18:10 Nasal Cannula 2.0 94 12/02/16 18:03 86 12/02/16 17:16 37.0 100 18 118/72 87 Room Air Physical Exam GENERAL: Patient is in no acute distress. HEENT: No acute trauma, normocephalic atraumatic, mucous membranes moist, no nasal congestion, no scleral icterus. NECK: No stridor, no adenopathy, no meningismus, trachea is midline. LUNGS: Decreased breath sounds bilaterally, especially at the right base. There is some rhonchi at the right base. No wheezing. HEART: Without murmurs gallops or rubs, regular rate and rhythm. ABDOMEN: Soft, nontender, bowel sounds positive, no hernias, no peritonitis. EXTREMITIES: No cyanosis, mild left lower extremity edema, no cellulitis, full range of motion of all the joints without pain or difficulty, no signs for acute trauma. NEUROLOGIC: Oriented x 3, no acute motor or sensory deficits, no focal weakness. SKIN: No rash, no jaundice, no diaphoresis. Medical Decision & Procedures ER Provider Diagnostic Interpretation: Radiology results and stated below per my review and radiologist interpretation: CHEST ONE VIEW PORTABLE CLINICAL HISTORY: Sepsis dyspnea COMPARISON STUDY: No previous studies for comparison. FINDINGS: The bones soft tissues and hemidiaphragms are normal. The cardiomediastinal silhouette is normal. The lungs are clear. The pulmonary vasculature is normal. IMPRESSION: Negative chest. Electronically signed by: Joel Price M.D. 12/02/2016 5:45 PM Dictated Date/Time: 12/02/2016 5:45 PM Laboratory Results 12/02/16 18:27 Red Blood Count 4.20, Mean Corpuscular Volume 90.5, Mean Corpuscular Hemoglobin 31.2, Mean Corpuscular Hemoglobin Concent 34.5, Mean Platelet Volume 10.2, Neutrophils (%) (Auto) 83.7, Lymphocytes (%) (Auto) 4.8, Monocytes (%) (Auto) 10.8, Eosinophils (%) (Auto) 0.0, Basophils (%) (Auto) 0.1, Neutrophils # (Auto ) 10.43, Lymphocytes # (Auto) 0.60, Monocytes # (Auto) 1.35, Eosinophils # (Auto ) 0.00, Basophils # (Auto) 0.01 12/02/16 18:27 Test 12/02/16 18:10 12/02/16 18:25 12/02/16 18:27 Bedside Lactic Acid Venous 0.47 mmol/L (0.90-1.70) White Blood Count 12.46 K/uL (4.8-10.8) Red Blood Count 4.20 M/uL (4.2-5.4) Hemoglobin 13.1 g/dL (12.0-16.0) Hematocrit 38.0 % (37-47) Mean Corpuscular Volume 90.5 fL (80-100) Mean Corpuscular Hemoglobin 31.2 pg (25-34) Mean Corpuscular Hemoglobin Concent 34.5 g/dl (32-36) Platelet Count 248 K/uL (130-400) Mean Platelet Volume 10.2 fL (7.4-10.4) Neutrophils (%) (Auto) 83.7 % Lymphocytes (%) (Auto) 4.8 % Monocytes (%) (Auto) 10.8 % Eosinophils (%) (Auto) 0.0 % Basophils (%) (Auto) 0.1 % Neutrophils # (Auto) 10.43 K/uL (1.4-6.5) Lymphocytes # (Auto) 0.60 K/uL (1.2-3.4) Monocytes # (Auto) 1.35 K/uL (0.11-0.59) Eosinophils # (Auto) 0.00 K/uL (0-0.5) Basophils # (Auto) 0.01 K/uL (0-0.2) RDW Standard Deviation 45.2 fL (36.4-46.3) RDW Coefficient of Variation 13.6 % (11.5-14.5) Immature Granulocyte % (Auto) 0.6 % Immature Granulocyte # (Auto) 0.07 K/uL (0.00-0.02) Prothrombin Time 10.6 SECONDS (9.0-12.0) Prothromb Time International Ratio 1.0 (0.9-1.1) Activated Partial Thromboplast Time 24.5 SECONDS (21.0-31.0) Partial Thromboplastin Ratio 0.9 Anion Gap 10.0 mmol/L (3-11) Est Creatinine Clear Calc Drug Dose 27.3 ml/min Estimated GFR () 49.8 Estimated GFR (Non- 43.0 BUN/Creatinine Ratio 26.6 (10-20) Calcium Level 9.6 mg/dl (8.5-10.1) Magnesium Level 1.9 mg/dl (1.8-2.4) Total Bilirubin 0.7 mg/dl (0.2-1) Aspartate Amino Transf (AST/SGOT) 7 U/L (15-37) Alanine Aminotransferase (ALT/SGPT) 13 U/L (12-78) Alkaline Phosphatase 92 U/L (45-117) Total Protein 6.9 gm/dl (6.4-8.2) Albumin 2.7 gm/dl (3.4-5.0) Globulin 4.2 gm/dl (2.5-4.0) Albumin/Globulin Ratio 0.6 (0.9-2) Laboratory results reviewed by me. ED Course 1723: The patient was evaluated in room C3. A complete history and physical exam was performed. 1728: Ordered Zosyn 4.5 gm IV, NSS 500 ml @ 999 mls/hr IV. 1754: Ordered Solu-Medrol 60 mg IV. 1900: Upon reexamination the patient is doing well. I discussed results and treatment plan with the patient. She verbalizes agreement and understanding. The patient will be evaluated for further management. 191: I discussed the case with Dr. Clark - [facility] Hospitalist. The patient will be evaluated for further management. Medical Decision Differential includes but is not limited to influenza, pneumonia, bronchitis, CHF, anemia, sepsis, electrolyte imbalance. There is a mild leukocytosis which would be consistent with infection. No concerning anemia. No significant electrolyte abnormality, kidney failure or hepatitis. Chest x-ray does not show pneumonia or CHF. There is no pneumothorax. EKG shows a sinus rhythm, no acute ischemia. Blood cultures are pending. Influenza testing is pending. The patient presents with dyspnea. She was hypoxic by our pulse ox testing. She was placed on nasal cannula O2 with an improvement of her pulse ox reading. The patient received a DuoNeb, IV Solu-Medrol, IV saline and IV Zosyn. She is doing well, her O2 saturation is adequate with the nasal cannula O2 supplementation. The patient appears to have an acute bronchitis. This has caused her shortness of breath, her fatigue, her weakness and hypoxia. Given the hypoxia, admission/ observation is warranted. I spoke to the patient and case management. The on- call hospitalist was consulted. Consults Time Called: 1907 Consulting Physician: Dr. Eduardo IBARRA Hospitalist Returned Call: 1911 I discussed the case with her. The patient will be evaluated for further management. Impression Primary Impression: Hypoxia Additional Impressions: Acute bronchitis Shortness of breath Scribe Attestation The scribe's documentation has been prepared under my direction and personally reviewed by me in its entirety. I confirm that the note above accurately reflects all work, treatment, procedures, and medical decision making performed by me. Departure Information Dispostion Being Evaluated By Hospitalist Referrals Mikel Sanford M.D. (PCP) Patient Instructions My [facility] Problem Qualifiers
[2016-12-02] MEDS ORDERED: METHYLPREDNISOLONE 125 MG VIAL IV STA (17:54)
[2016-12-02 18:40] LABS: BASO % 0.1 %; BASO ABS # 0.01 K/uL (0-0.2); COMPLETE YES; IG% 0.6 %; LYMPH % 4.8 %; MEAN CELL VOLUME 90.5 fL (80-100); MEAN CORPUSCULAR HEMOGLOBIN 31.2 pg (25-34); MEAN CORPUSCULAR HGB CONC 34.5 g/dl (32-36); MEAN PLATELET VOLUME 10.2 fL (7.4-10.4); MONO % 10.8 %; NEUT % 83.7 %; PLATELET COUNT 248 K/uL (130-400); WHITE BLOOD COUNT 12.46 K/uL (4.8-10.8)
[2016-12-02 18:53] LABS: PARTIAL THROMBOPLASTIN RATIO 0.9; PROTHROMBIN TIME (PATIENT) 10.6 SECONDS (9.0-12.0)
[2016-12-02 19:06] LABS: BUN/CREATININE RATIO 26.6 (10-20); CALCIUM 9.6 mg/dl (8.5-10.1); CREATININE 1.2 mg/dl (0.60-1.20); MAGNESIUM 1.9 mg/dl (1.8-2.4); POTASSIUM 4.1 mmol/L (3.5-5.1)
[2016-12-02 19:09] LABS: ALB/GLOB RATIO 0.6 (0.9-2)
[2016-12-02] MEDS ORDERED: ALBUT/IPRATROP 3MG/0.5MG NEB 3 ML VIAL INH STA (19:23)
[2016-12-02] MEDS ORDERED: PIPERACILLIN/TAZOBACTAM 4.5 GM/100ML D5W ONE (19:32)
[2016-12-02] MEDS ORDERED: LOPERAMIDE HCL 2 MG CAP PO PRN (19:45)
[2016-12-02] MEDS ORDERED: ALUMINUM/MAGNESIUM/SIMETH (MAALOX MAX) 30 ML UDC PO PRN (19:45)
[2016-12-02] MEDS ORDERED: MAGNESIUM HYDROXIDE SUSP 30 ML UDC PO PRN (19:45)
[2016-12-02] MEDS ORDERED: ONDANSETRON INJ 2 MG/ML 2 ML VIAL IV PRN (19:45)
[2016-12-02] MEDS ORDERED: ACETAMINOPHEN 325 MG TAB PO PRN (19:45)
[2016-12-02] MEDS ORDERED: POLYETHYLENE (MIRALAX) 17 GM PACK PO PRN (19:45)
[2016-12-02 19:53] LABS: URINE APPEARANCE CLEAR (CLEAR); URINE BILIRUBIN NEG (NEG); URINE COLOR DK YELLOW; URINE EPITHELIAL CELL AUTO >30 /lpf (0-5); URINE NITRITE NEG (NEG); URINE SPECIFIC GRAVITY 1.022 (1.000-1.030); UROBILINOGEN NEG (NEG); ZZUR CULT IF INDIC CLEAN CATCH NO
[2016-12-02 19:54] LABS: MANUAL MICROSCOPIC REQUIRED? NO; REVIEW REQ? YES
--- NOTE | 2016-12-02 19:59 | History and Physical ---
History & Physical Date & Time of Service: Dec 02, 2016 at 19:39 Chief Complaint: Cough,Weakness Primary Care Physician: Mikel Sanford M.D. History of Present Illness Source: patient, family Patient is a 81 y.o.F PMHx of recent d/c for SBO, Gout , TIA and HTN who presents with progressively worsening SOB. Pt states that her who lives with her had been sick with and. 1 week ago pt developed sore throat and congestion. Symptoms progressed to a productive cough associated with SOB. Symptoms failed to resolved an patient called her PCP who instructed her to come to [facility] ED. Patient denies any chest pain, blurry vision, fever, dizziness , abdominal pain, LE swelling. Social History Smoking Status: Never Smoker Drug Use: none Marital Status: Housing status: lives with family Occupational Status: retired Multi-Drug Resistant Organisms History of MDRO: No Allergies Coded Allergies: Ciprofloxacin (Unverified Allergy, Unknown, UNKNOWN, 12/02/16) Lisinopril (Verified Adverse Reaction, Unknown, COUGH, 12/02/16) Home Medications Scheduled Allopurinol (Allopurinol), 1 TAB PO DAILY Clopidogrel (Plavix), 75 MG PO DAILY Cyanocobalamin (Cyanocobalamin), IM MONTHLY Ergocalciferol (Vitamin D 45849 Unit), 1 CAP PO WK Potassium Chloride (Micro-K Ext Rel), 10 MEQ PO DAILY Telmisartan/Hctz (Micardis Hct 40MG/12.5MG), 1 TAB PO QAM Scheduled PRN Loperamide Hcl (Imodium), 2 MG PO DAILY PRN for Diarrhea Review of Systems Constitutional: No chills, No fever Eyes: No worsening of vision ENT: + sore throat, No hearing loss, No nasal symptoms, No tinnitus, No trouble swallowing Respiratory: + cough, + dyspnea on exertion, + shortness of breath, + sputum Cardiovascular: No chest pain, No orthopnea Abdomen: No nausea, No pain Neurologic: No memory loss Psychiatric: No depression symptoms Endocrine: No fatigue Hematologic / Lymphatic: No abnormal bleeding/bruising Integumentary: No rash Physical Exam Vital Signs Date Time Temp Pulse Resp B/P Pulse Ox O2 Delivery O2 Flow Rate FiO2 12/02/16 18:18 83 20 110/72 94 Nasal Cannula 2.0 12/02/16 18:17 94 Nasal Cannula 2.0 4/10/17 18:10 Nasal Cannula 2.0 94 12/02/16 18:03 86 12/02/16 17:16 37.0 100 18 118/72 87 Room Air General Appearance: WD/WN, no apparent distress Head: normocephalic Eyes: normal inspection ENT: normal ENT inspection, hearing grossly normal, pharynx normal Neck: supple, no adenopathy Respiratory/Chest: chest non-tender, no respiratory distress, no accessory muscle use, + rales, + rhonchi Cardiovascular: regular rate, rhythm, no edema, no gallop, no JVD Abdomen/GI: normal bowel sounds, non tender, soft Genitourinary - Female: external genitalia normal Back: normal inspection Extremities/Musculoskelatal: normal inspection 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, no motor/sensory deficits, alert, oriented x 3 Skin: normal color, warm/dry, no rash Lymphatic: no adenopathy Diagnostics Laboratory Results Results Past 24 Hours Test 12/02/16 18:10 12/02/16 18:25 12/02/16 18:27 12/02/16 19:30 Range/Units Bedside Lactic Acid Venous 0.47 0.90-1.70 mmol/L White Blood Count 12.46 4.8-10.8 K/uL Red Blood Count 4.20 4.2-5.4 M/uL Hemoglobin 13.1 12.0-16.0 g/dL Hematocrit 38.0 37-47 % Mean Corpuscular Volume 90.5 80-100 fL Mean Corpuscular Hemoglobin 31.2 25-34 pg Mean Corpuscular Hemoglobin Concent 34.5 32-36 g/dl Platelet Count 248 130-400 K/uL Mean Platelet Volume 10.2 7.4-10.4 fL Neutrophils (%) (Auto) 83.7 % Lymphocytes (%) (Auto) 4.8 % Monocytes (%) (Auto) 10.8 % Eosinophils (%) (Auto) 0.0 % Basophils (%) (Auto) 0.1 % Neutrophils # (Auto) 10.43 1.4-6.5 K/uL Lymphocytes # (Auto) 0.60 1.2-3.4 K/uL Monocytes # (Auto) 1.35 0.11-0.59 K/uL Eosinophils # (Auto) 0.00 0-0.5 K/uL Basophils # (Auto) 0.01 0-0.2 K/uL RDW Standard Deviation 45.2 36.4-46.3 fL RDW Coefficient of Variation 13.6 11.5-14.5 % Immature Granulocyte % (Auto) 0.6 % Immature Granulocyte # (Auto) 0.07 0.00-0.02 K/uL Prothrombin Time 10.6 9.0-12.0 SECONDS Prothromb Time International Ratio 1.0 0.9-1.1 Activated Partial Thromboplast Time 24.5 21.0-31.0 SECONDS Partial Thromboplastin Ratio 0.9 Sodium Level 137 136-145 mmol/L Potassium Level 4.1 3.5-5.1 mmol/L Chloride Level 103 98-107 mmol/L Carbon Dioxide Level 24 21-32 mmol/L Anion Gap 10.0 3-11 mmol/L Blood Urea Nitrogen 32 7-18 mg/dl Creatinine 1.20 0.60-1.20 mg/dl Est Creatinine Clear Calc Drug Dose 27.3 ml/min Estimated GFR () 49.8 Estimated GFR (Non- 43.0 BUN/Creatinine Ratio 26.6 10-20 Random Glucose 108 70-99 mg/dl Calcium Level 9.6 8.5-10.1 mg/dl Magnesium Level 1.9 1.8-2.4 mg/dl Total Bilirubin 0.7 0.2-1 mg/dl Aspartate Amino Transf (AST/SGOT) 7 15-37 U/L Alanine Aminotransferase (ALT/SGPT) 13 12-78 U/L Alkaline Phosphatase 92 45-117 U/L Total Protein 6.9 6.4-8.2 gm/dl Albumin 2.7 3.4-5.0 gm/dl Globulin 4.2 2.5-4.0 gm/dl Albumin/Globulin Ratio 0.6 0.9-2 Microbiology Results 12/02/16 Blood Culture, Received Pending 12/02/16 Blood Culture, Received Pending No Pneumothorax, No Hemothorax, No Infiltrate, No Mass, No Atelectasis, No Effusion Impression Assessment and Plan Patient is a 81 y.o.F PMHX of Gout, TIA, HTN who presents with increasingly worse SOB. Patient admitted to the hospitalist service for bronchitis. Bronchitis - admit to med/surg - check sputum culture/blood culture - start patient on azithromycin - duonebs per SVN protocol - incentive spirometry - check CBC in am Leukocytosis - check blood, sputum culture - urinalysis pending Gout - cont allopurinol TIA - continue plavix HTN - controlled - continue Micardis Chronic diarrhea - cont loperamide PPx - lovenox Full Code Level of Care Med/Surg Resuscitation Status FULL RESUSCITATION
[2016-12-02 20:01] LABS: URINE PATH CASTS 0-3 GRANULAR CASTS /lpf (0)
[2016-12-02 20:18] LABS: INFLUENZA B PCR Neg for Influ B (NEG)
[2016-12-02 20:20] LABS: INFLUENZA A PCR POS for Influ A (NEG)
[2016-12-02 21:10] VITALS: BP 107/69; PULSE 76; TEMP 36.8; O2SAT 91
[2016-12-02] MEDS ORDERED: AZITHROMYCIN IV 500 MG in DEXTROSE 5% 250ML 250 ML IV SCH (22:00)
[2016-12-02 22:06] VITALS: BP 107/69; PULSE 76; TEMP 36.8; O2SAT 91; Ht 152.4 cm; Wt 49.1 kg
[2016-12-02] MEDS: ENOXAPARIN 30 MG/0.3 ML SYR SQ SCH (22:19)
[2016-12-02] MEDS: ALBUT/IPRATROP 3MG/0.5MG NEB 3 ML VIAL INH SCH (23:45)
[2016-12-03] VITALS (8 sets, daily range): BP systolic 101–130; BP diastolic 68–81; PULSE 69–89; TEMP 36.5–36.8; O2SAT 90–96
[2016-12-03] MEDS: ALBUT/IPRATROP 3MG/0.5MG NEB 3 ML VIAL INH SCH ×4 (07:05→19:51)
[2016-12-03 07:32] LABS: MEAN CELL VOLUME 90.9 fL (80-100); MEAN CORPUSCULAR HEMOGLOBIN 30.2 pg (25-34); MEAN CORPUSCULAR HGB CONC 33.3 g/dl (32-36); MEAN PLATELET VOLUME 10.4 fL (7.4-10.4); PLATELET COUNT 231 K/uL (130-400); WHITE BLOOD COUNT 9.23 K/uL (4.8-10.8)
[2016-12-03] MEDS: CLOPIDOGREL BISULFATE 75 MG TAB PO SCH (07:39)
[2016-12-03] MEDS: ALLOPURINOL 100 MG TAB PO SCH (07:39)
[2016-12-03] MEDS: HYDROCHLOROTHIAZIDE 25 MG TAB PO SCH (07:40)
[2016-12-03] MEDS: POTASSIUM CHLORIDE 10 MEQ TABCR PO SCH (07:40)
[2016-12-03] MEDS: TELMISARTAN 40 MG TAB PO SCH (07:40)
[2016-12-03 08:00] LABS: BUN/CREATININE RATIO 25.7 (10-20); CALCIUM 9.6 mg/dl (8.5-10.1); CREATININE 1.2 mg/dl (0.60-1.20); POTASSIUM 4.3 mmol/L (3.5-5.1)
[2016-12-03] MEDS ORDERED: OSELTAMIVIR PHOSPHATE 75 MG CAP PO ONE (10:00)
[2016-12-03] MEDS: AZITHROMYCIN 250 MG TAB PO SCH (16:32)
[2016-12-03] MEDS: OSELTAMIVIR PHOSPHATE 75 MG CAP PO SCH (20:45)
[2016-12-03] MEDS: ENOXAPARIN 30 MG/0.3 ML SYR SQ SCH (20:45)
--- NOTE | 2016-12-03 22:12 | Hospitalist Progress Note ---
Hospitalist Progress Note Date of Service Dec 03, 2016. Subjective Pt evaluation today including: conversation w/ patient, physical exam, lab review, review of inpatient medication list Pt feeling so much better today. Cough much improved and now weaned off O2. Flu + for flu A, symptoms going on for 8 days but really worsened 3 days ago. No diarrhea, no chest pain, no shortness of breath. Her appetite is good, no nausea or vomiting All Other Systems: Reviewed and Negative Objective Vital Signs Date Time Temp Pulse Resp B/P Pulse Ox O2 Delivery O2 Flow Rate FiO2 12/03/16 15:14 88 16 96 Room Air 12/03/16 14:41 36.6 76 20 101/68 90 12/03/16 11:36 89 16 96 Room Air 12/03/16 08:00 Room Air 12/03/16 07:26 36.5 78 20 130/81 93 12/03/16 07:05 81 16 96 Nasal Cannula 2.0 12/03/16 00:05 Nasal Cannula 2.0 12/03/16 00:00 36.8 73 18 107/71 94 2.0 12/02/16 22:06 36.8 76 17 107/69 91 Nasal Cannula 2.0 12/02/16 21:10 36.8 76 17 107/69 91 Nasal Cannula 2.0 12/02/16 20:38 78 18 105/63 97 12/02/16 20:28 78 18 105/63 97 Nasal Cannula 2.0 12/02/16 18:18 83 20 110/72 94 Nasal Cannula 2.0 12/02/16 18:17 94 Nasal Cannula 2.0 12/02/16 18:10 Nasal Cannula 2.0 94 12/02/16 18:03 86 12/02/16 17:16 37.0 100 18 118/72 87 Room Air Physical Exam General Appearance: WD/WN, no apparent distress Eyes: normal inspection, sclerae normal ENT: hearing grossly normal, pharynx normal Neck: trachea midline Respiratory/Chest: normal breath sounds, no respiratory distress, no accessory muscle use, + crackles (mild crackles at the left base, otherwise clear) Cardiovascular: regular rate, rhythm, no edema, no gallop, no murmur Abdomen: normal bowel sounds, non tender, soft, no organomegaly Extremities: non-tender, normal inspection, no pedal edema, no calf tenderness Neurologic/Psychiatric: alert, normal mood/affect, oriented x 3 Skin: normal color, warm/dry, no rash Lymphatic: no adenopathy Laboratory Results Last 24 Hours Test 12/02/16 18:10 12/02/16 18:25 12/02/16 18:27 12/02/16 19:30 Influenza Type A (RT-PCR) POS for Influ A Influenza Type B (RT-PCR) Neg for Influ B Bedside Lactic Acid Venous 0.47 mmol/L White Blood Count 12.46 K/uL Red Blood Count 4.20 M/uL Hemoglobin 13.1 g/dL Hematocrit 38.0 % Mean Corpuscular Volume 90.5 fL Mean Corpuscular Hemoglobin 31.2 pg Mean Corpuscular Hemoglobin Concent 34.5 g/dl Platelet Count 248 K/uL Mean Platelet Volume 10.2 fL Neutrophils (%) (Auto) 83.7 % Lymphocytes (%) (Auto) 4.8 % Monocytes (%) (Auto) 10.8 % Eosinophils (%) (Auto) 0.0 % Basophils (%) (Auto) 0.1 % Neutrophils # (Auto) 10.43 K/uL Lymphocytes # (Auto) 0.60 K/uL Monocytes # (Auto) 1.35 K/uL Eosinophils # (Auto) 0.00 K/uL Basophils # (Auto) 0.01 K/uL RDW Standard Deviation 45.2 fL RDW Coefficient of Variation 13.6 % Immature Granulocyte % (Auto) 0.6 % Immature Granulocyte # (Auto) 0.07 K/uL Prothrombin Time 10.6 SECONDS Prothromb Time International Ratio 1.0 Activated Partial Thromboplast Time 24.5 SECONDS Partial Thromboplastin Ratio 0.9 Sodium Level 137 mmol/L Potassium Level 4.1 mmol/L Chloride Level 103 mmol/L Carbon Dioxide Level 24 mmol/L Anion Gap 10.0 mmol/L Blood Urea Nitrogen 32 mg/dl Creatinine 1.20 mg/dl Est Creatinine Clear Calc Drug Dose 27.3 ml/min Estimated GFR () 49.8 Estimated GFR (Non- 43.0 BUN/Creatinine Ratio 26.6 Random Glucose 108 mg/dl Calcium Level 9.6 mg/dl Magnesium Level 1.9 mg/dl Total Bilirubin 0.7 mg/dl Aspartate Amino Transf (AST/SGOT) 7 U/L Alanine Aminotransferase (ALT/SGPT) 13 U/L Alkaline Phosphatase 92 U/L Total Protein 6.9 gm/dl Albumin 2.7 gm/dl Globulin 4.2 gm/dl Albumin/Globulin Ratio 0.6 Urine Color DK YELLOW Urine Appearance CLEAR Urine pH 5.0 Urine Specific [place] 1.022 Urine Protein TRACE Urine Glucose (UA) NEG Urine Ketones NEG Urine Occult Blood NEG Urine Nitrite NEG Urine Bilirubin NEG Urine Urobilinogen NEG Urine Leukocyte Esterase TRACE Urine WBC (Auto) 1-5 /hpf Urine RBC (Auto) 0-4 /hpf Urine Hyaline Casts (Auto) 10-30 /lpf Urine Epithelial Cells (Auto) >30 /lpf Urine Bacteria (Auto) NEG Urine Pathogenic Casts 0-3 GRANULAR CASTS /lpf Test 12/03/16 07:14 White Blood Count 9.23 K/uL Red Blood Count 4.40 M/uL Hemoglobin 13.3 g/dL Hematocrit 40.0 % Mean Corpuscular Volume 90.9 fL Mean Corpuscular Hemoglobin 30.2 pg Mean Corpuscular Hemoglobin Concent 33.3 g/dl RDW Standard Deviation 45.1 fL RDW Coefficient of Variation 13.5 % Platelet Count 231 K/uL Mean Platelet Volume 10.4 fL Sodium Level 139 mmol/L Potassium Level 4.3 mmol/L Chloride Level 106 mmol/L Carbon Dioxide Level 26 mmol/L Anion Gap 7.0 mmol/L Blood Urea Nitrogen 31 mg/dl Creatinine 1.20 mg/dl Est Creatinine Clear Calc Drug Dose 27.3 ml/min Estimated GFR () 49.8 Estimated GFR (Non- 43.0 BUN/Creatinine Ratio 25.7 Random Glucose 141 mg/dl Calcium Level 9.6 mg/dl Assessment and Plan Patient is a 81 yo female with a PMHX of Gout, TIA, HTN, and remote uterine cancer, who presents with increasingly worsening SOB, cough, and with acute hypoxemic respiratory failure. Patient admitted to the hospitalist service for bronchitis. Chest x-ray is clear, influenza A is positive. Acute bronchitis/influenza A respiratory tract infection/acute hypoxemic respiratory failure-much improved with bronchodilators and azithromycin-may have a post-influenza bacterial bronchitis that is now responding to antibiotics. Is now weaned off of supplemental oxygen - admit to med/surg -Follow sputum culture/blood culture -Continue azithromycin for a 5 day course - duonebs - incentive spirometry -Started Tamiflu today and continue for 5 day course Leukocytosis-secondary to infection, now resolved - Treating acute bronchitis and influenza Gout-no current issues - cont allopurinol for prophylaxis History of TIA - continue plavix HTN - controlled - continue Micardis Chronic diarrhea - cont loperamide PPx - lovenox Full Code Disposition-expect discharge to home tomorrow
[2016-12-04 00:03] VITALS: BP 109/65; PULSE 77; TEMP 36.9; O2SAT 91
[2016-12-04 07:00] VITALS: PULSE 67; O2SAT 94
[2016-12-04] MEDS: ALBUT/IPRATROP 3MG/0.5MG NEB 3 ML VIAL INH SCH ×2 (07:00→11:09)
[2016-12-04 07:38] VITALS: BP 105/64; PULSE 68; TEMP 36.6; O2SAT 93
[2016-12-04 08:00] LABS: HEMATOCRIT 38.1 % (37-47); MEAN CELL VOLUME 92.5 fL (80-100); MEAN CORPUSCULAR HEMOGLOBIN 31.3 pg (25-34); MEAN CORPUSCULAR HGB CONC 33.9 g/dl (32-36); MEAN PLATELET VOLUME 10.4 fL (7.4-10.4); PLATELET COUNT 280 K/uL (130-400); RED BLOOD COUNT 4.12 M/uL (4.2-5.4); WHITE BLOOD COUNT 11.46 K/uL (4.8-10.8)
[2016-12-04 08:18] LABS: BUN/CREATININE RATIO 31.2 (10-20); CALCIUM 9.7 mg/dl (8.5-10.1); CREATININE 1.3 mg/dl (0.60-1.20); POTASSIUM 4.7 mmol/L (3.5-5.1)
[2016-12-04] MEDS: POTASSIUM CHLORIDE 10 MEQ TABCR PO SCH (09:45)
[2016-12-04] MEDS: OSELTAMIVIR PHOSPHATE 75 MG CAP PO SCH (09:45)
[2016-12-04] MEDS: HYDROCHLOROTHIAZIDE 25 MG TAB PO SCH (09:46)
[2016-12-04] MEDS: CLOPIDOGREL BISULFATE 75 MG TAB PO SCH (09:47)
[2016-12-04] MEDS: ALLOPURINOL 100 MG TAB PO SCH (09:47)
[2016-12-04] MEDS: AZITHROMYCIN 250 MG TAB PO SCH (09:48)
[2016-12-04] MEDS: TELMISARTAN 40 MG TAB PO SCH (09:48)
[2016-12-04 11:09] VITALS: PULSE 76; O2SAT 93
[2016-12-04] MEDS ORDERED: TMF75 PO (11:11)
[2016-12-04] MEDS ORDERED: AZIT-57 PO (11:11)
--- NOTE | 2016-12-04 11:12 | Discharge Instructions ---
Discharge Instructions Admission Admission Date: Dec 02, 2016 at 19:59 Admission Diagnosis: Acute Bronchitis. Influenzae Discharge Care Plan - Problem: Medical Problems: (1) Acute bronchitis (2) Hypoxia (3) Shortness of breath Care Plan - Goal(s): Decrease discomfort, Improve function Care Plan - Instructions: Activity Recommendations: no limitations Recommended Home Diet: Regular Provider Instructions: Please follow up with your PCP in 1 week VTE Core Measure Inpt VTE Proph given/why not?: Enoxaparin (Lovenox)[facility] Recommendations: Call your doctor if: * Temperature above 101 degrees * Pain not relieved by pain medicine ordered * There is increased drainage or redness from any incision * You have any unanswered questions or concerns. Your Doctors Instructions noted above were prepared by provider Iris Clark.
[2016-12-04 12:30] VITALS: BP 105/64; PULSE 76; TEMP 36.6; O2SAT 93
--- NOTE | 2016-12-04 16:44 | Discharge Summary ---
Discharge Summary Date of Service Dec 04, 2016. Discharge Summary Admission Date: Dec 02, 2016 at 19:59 Discharge Date: Dec 04, 2016 Discharge Disposition: Home Principal Diagnosis: Bronchitis/Influenzae Problems/Secondary Diagnoses: Gout HTN TIA Medication Reconciliation New Medications: Azithromycin (Azithromycin) 250 Mg Tab 500 MG PO DAILY for 3 Days, #6 TAB Oseltamivir Phosphate (Tamiflu) 75 Mg Cap 75 MG PO BID for 4 Days, #8 CAP Continued Medications: Allopurinol (Allopurinol) 100 Mg Tab 1 TAB PO DAILY, #30 Clopidogrel (Plavix) 75 Mg Tab 75 MG PO DAILY, TAB Cyanocobalamin (Cyanocobalamin) 1,000 Mcg/Ml Inj IM MONTHLY Ergocalciferol (Vitamin D 63965 Unit) 50,000 Unit Cap 1 CAP PO WK, CAP 5 Refills Loperamide Hcl (Imodium) 2 Mg Cap 2 MG PO DAILY PRN for Diarrhea, CAP Potassium Chloride (Micro-K Ext Rel) 10 Meq Capcr 10 MEQ PO DAILY, CAP Telmisartan/Hctz (Micardis Hct 40MG/12.5MG) Tab 1 TAB PO QAM, TAB Discharge Exam Review of Systems: Constitutional: No chills Eyes: No worsening of vision ENT: No hearing loss Respiratory: + shortness of breath, No cough, No sputum Cardiovascular: No chest pain Abdomen: No nausea, No pain Genitourinary - Female: No dysuria Genitourinary - Male: No dysuria, No hematuria Neurologic: No memory loss, No paralysis Physical Exam: General Appearance: WD/WN, no apparent distress Eyes: normal inspection ENT: normal ENT inspection Neck: supple Respiratory/Chest: chest non-tender, lungs clear Cardiovascular: regular rate, rhythm, no edema Abdomen / GI: normal bowel sounds, non tender, soft Extremities: normal inspection 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 Patient admitted to the hospitalist service for bronchitis. Bronchitis - admited to med/surg - sputum culture/blood culture NGTD - started patient on azithromycin5 day course - duonebs per N protocol - incentive spirometry - check CBC in am Influenzae - started on 5 day course of tamilflu Leukocytosis - resolvedwith treatment - blood, sputum culture NGTD - urinalysis unremarkable Gout - cont'd allopurinol TIA - continued plavix HTN - controlled - continued Micardis Chronic diarrhea - cont'd loperamide PPx - lovenox Full Code Total Time Spent: Greater than 30 minutes This includes examination of the patient, discharge planning, medication reconciliation, and communication with other providers. Discharge Instructions Please refer to the electronic Patient Visit Report (Discharge Instructions) for additional information.
== END 2016-12-04 12:50 | disposition home or self-care (01) | DRG 189 ==
LOC: ENRESERVDT → CANRESERV → ENRESERVTM → C.EDB 16:50 → C.MS2W 19:59
PROVIDERS: ADMIT Internal Medicine; ATTEND Family Medicine
DX: J96.01 Acute respiratory failure with hypoxia (principal); J11.1 Influenza due to unidentified influenza virus with other respiratory manifestations; J20.9 Acute bronchitis, unspecified; I10 Essential (primary) hypertension; M10.9 Gout, unspecified; K52.9 Noninfective gastroenteritis and colitis, unspecified; Z86.718 Personal history of other venous thrombosis and embolism; Z85.42 Personal history of malignant neoplasm of other parts of uterus

== ENCOUNTER → 2016-12-09 | Outpatient (CLI) | payer OTHER ==
[~2016-12-09] MED LIST changes: +ALL100 PO; +AZIT-57 PO; -COLE1TAB5 PO; -HYDR-5688 PO; -MAGN1TAB15 PO; +TMF75 PO
[2016-12-09 18:14] LABS: BLOOD UREA NITROGEN 38 mg/dl (7-18); BUN/CREATININE RATIO 29.1 (10-20); CALCIUM 9.9 mg/dl (8.5-10.1); CARBON DIOXIDE 22 mmol/L (21-32); CHLORIDE 106 mmol/L (98-107); GLUCOSE 103 mg/dl (70-99); POTASSIUM 4.7 mmol/L (3.5-5.1); SODIUM 138 mmol/L (136-145)
== END | disposition home or self-care (01) ==
LOC: C.LABMFLN 13:46
PROVIDERS: ATTEND Family Medicine
DX: M10.9 Gout, unspecified (principal); R63.4 Abnormal weight loss

== ENCOUNTER → 2017-02-07 | Outpatient (CLI) | payer OTHER ==
[2017-02-07 18:51] LABS: BLOOD UREA NITROGEN 24 mg/dl (7-18); BUN/CREATININE RATIO 21.9 (10-20); CALCIUM 9.4 mg/dl (8.5-10.1); CARBON DIOXIDE 27 mmol/L (21-32); CHLORIDE 111 mmol/L (98-107); GLUCOSE 115 mg/dl (70-99); SODIUM 143 mmol/L (136-145); URIC ACID 8.4 mg/dl (2.6-7.2)
== END | disposition home or self-care (01) ==
LOC: C.LABMFLN 15:22
PROVIDERS: ATTEND Family Medicine
DX: I10 Essential (primary) hypertension (principal); M10.9 Gout, unspecified

== ENCOUNTER → 2017-05-20 | Outpatient (CLI) | payer OTHER ==
[~2017-05-20] MED LIST changes: -AZIT-57 PO; +ZTHM250 PO
[2017-05-20 13:56] LABS: BASO % 1.1 %; BASO ABS # 0.06 K/uL (0-0.2); COMPLETE YES; EOS % 2.7 %; HEMATOCRIT 39.1 % (37-47); IG% 0.2 %; LYMPH % 24.1 %; LYMPH ABS # 1.33 K/uL (1.2-3.4); MEAN CELL VOLUME 93.5 fL (80-100); MEAN CORPUSCULAR HEMOGLOBIN 30.4 pg (25-34); MEAN CORPUSCULAR HGB CONC 32.5 g/dl (32-36); MEAN PLATELET VOLUME 10.4 fL (7.4-10.4); NEUT % 62.9 %; PLATELET COUNT 301 K/uL (130-400); RED BLOOD COUNT 4.18 M/uL (4.2-5.4); WHITE BLOOD COUNT 5.53 K/uL (4.8-10.8)
[2017-05-20 14:24] LABS: ALT/SGPT 13 U/L (12-78); AST/SGOT 10 U/L (15-37); BLOOD UREA NITROGEN 24 mg/dl (7-18); BUN/CREATININE RATIO 22.2 (10-20); CALCIUM 9.4 mg/dl (8.5-10.1); CARBON DIOXIDE 29 mmol/L (21-32); CHLORIDE 109 mmol/L (98-107); CHOLESTEROL 185 mg/dl (0-200); GLUCOSE 94 mg/dl (70-99); POTASSIUM 3.7 mmol/L (3.5-5.1); SODIUM 144 mmol/L (136-145); URIC ACID 3.6 mg/dl (2.6-7.2)
[2017-05-20 14:26] LABS: CHOLESTEROL/HDL RATIO 2.4; HDL CHOLESTEROL 78 mg/dl; LDL CHOLESTEROL CALCULATED 84 mg/dl; TRIGLYCERIDES 114 mg/dl (0-150); VERY LOW DENSITY LIPOPROT CALC 23 mg/dl
== END | disposition home or self-care (01) ==
LOC: C.LABMFLN 07:07
PROVIDERS: ATTEND Family Medicine
DX: I10 Essential (primary) hypertension (principal); E78.5 Hyperlipidemia, unspecified; M10.9 Gout, unspecified; E53.8 Deficiency of other specified B group vitamins; E55.9 Vitamin D deficiency, unspecified

== ENCOUNTER → 2017-07-07 | Outpatient (CLI) | payer OTHER ==
[~2017-07-07] MED LIST changes: +AZIT-57 PO; -ZTHM250 PO
[2017-07-07 18:19] LABS: URINE APPEARANCE CLEAR (CLEAR); URINE BILIRUBIN NEG (NEG); URINE COLOR YELLOW; URINE EPITHELIAL CELL AUTO 0-5 /lpf (0-5); URINE NITRITE NEG (NEG); URINE SPECIFIC GRAVITY 1.022 (1.000-1.030); UROBILINOGEN NEG (NEG); ZZUR CULT IF INDIC CLEAN CATCH YES
[2017-07-07 18:29] LABS: MANUAL MICROSCOPIC REQUIRED? NO; REVIEW REQ? NO
== END | disposition home or self-care (01) ==
LOC: C.LABMFLN 13:37
PROVIDERS: ATTEND Family Medicine
DX: B37.3 Candidiasis of vulva and vagina (principal)

== ENCOUNTER → 2017-10-17 | Outpatient (CLI) | payer OTHER | END | disposition home or self-care (01) | LOC: C.LABMFLN 17:53 | PROVIDERS: ATTEND Family Medicine | DX: N39.0 Urinary tract infection, site not specified (principal) ==

== ENCOUNTER → 2017-12-31 | Outpatient (CLI) | payer OTHER ==
[2017-12-31 17:52] LABS: BASO % 1.1 %; BASO ABS # 0.07 K/uL (0-0.2); EOS % 3.4 %; EOS ABS # 0.22 K/uL (0-0.5); HEMOGLOBIN 12.8 g/dL (12.0-16.0); IG# 0.02 K/uL (0.00-0.02); LYMPH % 26.2 %; LYMPH ABS # 1.71 K/uL (1.2-3.4); MEAN CELL VOLUME 91.1 fL (80-100); MEAN CORPUSCULAR HEMOGLOBIN 30.7 pg (25-34); MEAN CORPUSCULAR HGB CONC 33.7 g/dl (32-36); MEAN PLATELET VOLUME 10.2 fL (7.4-10.4); MONO % 7.1 %; MONO ABS # 0.46 K/uL (0.11-0.59); NEUT % 61.9 %; NEUT ABS # 4.04 K/uL (1.4-6.5); PLATELET COUNT 322 K/uL (130-400); RED CELL DISTRIBUTION WIDTH CV 13.7 % (11.5-14.5); WHITE BLOOD COUNT 6.52 K/uL (4.8-10.8)
[2017-12-31 18:04] LABS: ALBUMIN 3.3 gm/dl (3.4-5.0); ALT/SGPT 14 U/L (12-78); AST/SGOT 15 U/L (15-37); BLOOD UREA NITROGEN 31 mg/dl (7-18); CALCIUM 8.8 mg/dl (8.5-10.1); CARBON DIOXIDE 26 mmol/L (21-32); CREATININE 1.15 mg/dl (0.60-1.20); GLUCOSE 85 mg/dl (70-99); POTASSIUM 3.7 mmol/L (3.5-5.1); SODIUM 139 mmol/L (136-145); URIC ACID 8.4 mg/dl (2.6-7.2)
[2017-12-31 18:07] LABS: ALKALINE PHOSPHATASE 104 U/L (45-117); CHOLESTEROL 184 mg/dl (0-200); LDL CHOLESTEROL CALCULATED 77 mg/dl; TOTAL PROTEIN 6.7 gm/dl (6.4-8.2)
== END | disposition home or self-care (01) ==
LOC: C.LABMFLN 15:14
PROVIDERS: ATTEND Family Medicine
DX: I10 Essential (primary) hypertension (principal); E53.8 Deficiency of other specified B group vitamins; E78.5 Hyperlipidemia, unspecified; E55.9 Vitamin D deficiency, unspecified; M10.9 Gout, unspecified

== ENCOUNTER 2019-08-05 17:38 | Inpatient (IN) ==
[2019-08-05] MEDS ORDERED: ONDANSETRON INJ 2 MG/ML 2 ML VIAL IV STA (18:12)
[2019-08-05] MEDS ORDERED: MoRPHine SULFATE 4 MG/ML 1 ML CARP\\VIAL IV STA (18:12)
[2019-08-05 18:42] LABS: Basophils # (auto) 0.03 K/uL (0-0.2); Basophils % (auto) 0.2 %; Eosinophils # (auto) 0.01 K/uL (0-0.5); Eosinophils % (auto) 0.1 %; Hematocrit (blood only) 38.7 % (37-47); Hemoglobin 13.3 g/dL (12.0-16.0); Immature Granulocytes # (auto) 0.03 K/uL (0.00-0.02); Immature Granulocytes % (auto) 0.2 %; Lymphocytes # (auto) 0.65 K/uL (1.2-3.4); Lymphocytes % (auto) 4.9 %; Mean Corpuscular Hemoglobin 31.7 pg (25-34); Mean Corpuscular Hgb Conc 34.4 g/dL (32-36); Mean Corpuscular Volume 92.1 fL (80-100); Mean Platelet Volume 9.8 fL (7.4-10.4); Monocytes % (auto) 3.7 %; Neutrophils # (auto) 12.18 K/uL (1.4-6.5); Neutrophils % (auto) 90.9 %; Platelet Count 295 K/uL (130-400); RDW Coefficient of Variation 13.6 % (11.5-14.5); RDW Standard Deviation 45.7 fL (36.4-46.3)
[2019-08-05 19:04] LABS: Albumin Level 3.5 gm/dl (3.4-5.0); Calcium 10.1 mg/dl (8.5-10.1); Creatinine Clr Calc Pharmacy 22.1 ml/min; Est GFR (African American) 40.1; Est GFR (Non-African American) 34.6
[2019-08-05 19:06] LABS: Albumin Globulin Ratio 1.1 (0.9-2); Bilirubin,Total 0.8 mg/dl (0.2-1); Globulin 3.3 gm/dl (2.5-4.0); Total Protein 6.8 gm/dl (6.4-8.2)
--- NOTE | 2019-08-05 20:16 | CT Scan Report ---
CT OF THE ABDOMEN AND PELVIS WITHOUT CONTRAST CLINICAL HISTORY: Lower abdominal pain. Evaluate for small bowel obstruction. COMPARISON STUDY: CT of the abdomen and pelvis September 02, 2016. TECHNIQUE: Axial images of the abdomen and pelvis were obtained without IV contrast. Images were revi ewed in the axial, sagittal, and coronal planes. Automated exposure control was utilized for the rayna dy. A dose lowering technique was utilized adhering to the principles of ALARA. FINDINGS: A few small nodules within the lower lungs are unchanged since CT of September 02, 2016. Evalu ation of the abdomen and pelvis is suboptimal on this unenhanced examination. Mild biliary ductal dil atation is unchanged and likely related to cholecystectomy. The spleen, adrenal glands and pancreas a re unremarkable. A water attenuation lesion arising from the lower pole of the left kidney favors a c yst. This is unchanged. No pneumatosis, free air or portal venous gas is present. There is trace flui d within the left paracolic gutter. There are multiple loops of mildly dilated small bowel within the lower abdomen and pelvis with probable transition point within the central pelvis. There is trace as sociated ascites. No suspicious osseous lesions are noted. There is no lymphadenopathy. IMPRESSION: Findings consistent with a partial small bowel obstruction with probable transition poin t within the central pelvis. Trace associated ascites. No pneumatosis, free air or portal venous gas. Electronically signed by: Ernesto Cobb M.D. 08/05/2019 8:15 PM
[2019-08-05] MEDS ORDERED: SODIUM CHLORIDE 0.9% 500 ML IV SCH (20:30)
--- NOTE | 2019-08-05 22:01 | Emergency Department Note ---
Entered by Paulette Piña acting as a scribe for Parish Rodriguez MD History of Present Illness General Chief complaint: Abdominal Pain Stated complaint: PAIN IN STOMACH,THROWING UP, DIARRHEA Time Seen by Provider: 08/05/19 18:03 Source: patient History of Present Illness Onset (ago): day(s) 1 Location: abdomen (generalized lower ) Radiation: non-radiation Pain Consistency: + constant Maximum Pain Intensity: 8 Quality: + other ("hard pain"); no sharp Relieved By: + none Exacerbated By: + eating Associated symptoms: + denies other symptoms (hematochezia, dysuria, hematuria ), + nausea/vomiting and + other (loose stool); no fever/chills The patient is an 84 year old female with a history of hysterectomy, cholecystectomy, bowel blockage, kidney stone removal, and hypertension who presents to the Emergency Room with complaints of abdominal pain. The patient states that she began to experience generalized lower abdominal pain 1 day ago in the late afternoon. She describes her pain as a "hard" pain associated with vomiting since onset. Her sx are worsened with PO intake. Of note, her last BM was this morning but shes states that her stool was loose since last night. The patient states that her pain does not radiate to her back and that she does not feel feverish. She denies hematochezia, dysuria, and hematuria. The patient offers no additional concerns at this time. Home Medications Home Medications Medication Instructions Recorded Confirmed Type cholecalciferol (vitamin D3) 25 1,000 units PO DAILY 01/29/19 08/05/19 History mcg (1,000 unit) capsule nystatin 100,000 unit/gram topical 1 appln TOPICAL BID PRN #15 gm 02/03/19 08/05/19 Rx cream potassium chloride 10 mEq 10 meq PO BID #180 cap 02/03/19 08/05/19 Rx capsule,extended release telmisartan 40 1 tab PO DAILY #90 tab 03/09/19 08/05/19 Rx mg-hydrochlorothiazide 12.5 mg tablet clopidogrel 75 mg tablet 75 mg PO DAILY #90 tab 04/27/19 08/05/19 Rx cyanocobalamin (vitamin B-12) 1,000 mcg PO Q48H tab 05/23/19 08/05/19 History 1,000 mcg tablet hydrocodone-acetaminophen 1 - 2 tab PO QID PRN 08/05/19 08/05/19 History Allergies Allergy/AdvReac Type Severity Reaction Status Date / Time allopurinol Allergy Unknown Unknown Verified 08/05/19 22:10 Cipro Allergy Unknown UNKNOWN Unverified 12/02/16 17:39 ciprofloxacin Allergy Unknown UNKNOWN Verified 08/05/19 22:10 lisinopril AdvReac Unknown COUGH Verified 08/05/19 22:10 Past Med/Surg History Medical History Hypertension Kidney stone Surgical History Hx of cholecystectomy Hx of hysterectomy Social History Preferred Language: Danish Visual Impairment: No Limitations Hearing Ability: Hard of Hearing marital status: Current Living Situation: Spouse current occupational status: retired Feels Safe at Home: Yes Smoking Status: Never smoker Second Hand Exposure: No ; Hx Alcohol Use: No Hx Substance Use: No Childhood Exposure to Second-Hand Smoke: No caffeine: No Dental Care, Regularly: Yes Physical Activity Frequency: Other Physical Activity Frequency Comment: House work Seatbelt Use: never Sunscreen Use: No Review of Systems See HPI for pertinent positives & negatives. and A total of 10 systems reviewed and were otherwise negative Physical Exam Vital Signs Vital Signs - 24 hr 08/05/19 17:59 08/05/19 18:44 08/05/19 19:10 Temperature 36.5 C Temperature Source Oral Pulse Rate 91 H Pulse Rate [Right] 80 Pulse Rhythm [Right] Regular Pulse Strength [Right] Normal Respiratory Rate 18 16 Respiratory Effort / Characteristics Non-Labored Spontaneous Respiratory Depth Normal Blood Pressure 146/83 H Blood Pressure [Right Arm] 133/63 Blood Pressure Mean 104 Blood Pressure Mean [Right Arm] 86 Blood Pressure Position Sitting Blood Pressure Position [Right Arm] Lying Pulse Oximetry 96 96 98 Oxygen Delivery Method Room Air Room Air Room Air Sepsis Recent Fever Within 48 Hours No Sepsis New/Unexplained Change in Mental Status No Sepsis Action Taken by Nursing No Action Required 08/05/19 20:41 Temperature Temperature Source Pulse Rate Pulse Rate [Right] 75 Pulse Rhythm [Right] Regular Pulse Strength [Right] Normal Respiratory Rate 16 Respiratory Effort / Characteristics Non-Labored Spontaneous Respiratory Depth Normal Blood Pressure Blood Pressure [Right Arm] 125/70 Blood Pressure Mean Blood Pressure Mean [Right Arm] 88 Blood Pressure Position Blood Pressure Position [Right Arm] Lying Pulse Oximetry 93 Oxygen Delivery Method Room Air Sepsis Recent Fever Within 48 Hours Sepsis New/Unexplained Change in Mental Status Sepsis Action Taken by Nursing Constitutional: Vital signs reviewed. Eyes: Pupils are equal round reactive to light. Conjunctiva are noninjected. ENT: Pharynx is clear without erythema or exudate. Mucous membranes are moist. Neck supple without meningeal signs. Respiratory: Clear to auscultation bilaterally. Breath sounds are equal bilaterally. Cardiovascular: Regular rate and rhythm. No rubs or gallops. GI: Soft, nondistended and lower abdominal tenderness. No guarding. No CVA tenderness. Bowel sounds are present. Musculoskeletal: No peripheral edema. No lower extremity tenderness. Integumentary: No cyanosis. Neurological: The patient is awake and alert. No focal deficits. Psychiatric: Normal affect. Course Course 1803: Past medical records reviewed. The patient was evaluated in room C10. A complete history and physical exam was performed. 2027: I checked on the patient and discussed test results with her. She states that she is feeling better and is agreeable to admission. 2044: [facility]. The patient verbally expressed understanding and agreement of the treatment plan. The patient will be evaluated for further treatment. Administered Medications Discontinued Medications Sodium Chloride (Nss) 500 mls @ 125 mls/hr IV .Q4H [facility] Stop: 09/04/19 20:29 Last Admin: 08/05/19 20:38 Dose: 125 mls/hr Documented by: [id number] Morphine Sulfate (Morphine Sulfate) 4 mg IV NOW STA Stop: 08/05/19 18:13 Last Admin: 08/05/19 18:43 Dose: 4 mg Documented by: [id number] Ondansetron HCl (Zofran) 4 mg IV NOW STA Stop: 08/05/19 18:13 Last Admin: 08/05/19 18:43 Dose: 4 mg Documented by: [id number] Medical Decision Making Differential Diagnosis Differential diagnosis includes but is not limited to small bowel obstruction, partial obstruction, enteritis, diverticulitis, appendicitis, colitis. Medical Records Attestation: I reviewed the patient's medical records. I did perform a limited focused review of portions of the patient's old chart on the electronic medical record. The patient has had no recent pertinent visits to this hospital. Home Medications Current Medication List: was personally reviewed by me Laboratory Data Attestation: I reviewed the patient's lab results. Result diagrams: 08/05/19 18:35 08/05/19 18:35 Lab Results 08/05/19 08/05/19 Range/Units 18:35 18:35 WBC 13.40 H (4.8-10.8) K/uL RBC 4.20 (4.2-5.4) M/uL Hgb 13.3 (12.0-16.0) g/dL Hct 38.7 (37-47) % MCV 92.1 (80-100) fL MCH 31.7 (25-34) pg MCHC 34.4 (32-36) g/dL RDW Std Deviation 45.7 (36.4-46.3) fL RDW Coeff of [place] 13.6 (11.5-14.5) % Plt Count 295 (130-400) K/uL MPV 9.8 (7.4-10.4) fL Immature Gran % (Auto) 0.2 % Neut % (Auto) 90.9 % Lymph % (Auto) 4.9 % [place] % (Auto) 3.7 % Eos % (Auto) 0.1 % Baso % (Auto) 0.2 % Immature Gran # (Auto) 0.03 H (0.00-0.02) K/uL Neut # (Auto) 12.18 H (1.4-6.5) K/uL Lymph # (Auto) 0.65 L (1.2-3.4) K/uL [place] # (Auto) 0.50 (0.11-0.59) K/uL Eos # (Auto) 0.01 (0-0.5) K/uL Baso # (Auto) 0.03 (0-0.2) K/uL Sodium 144 (136-145) mmol/L Potassium 3.0 L (3.5-5.1) mmol/L Chloride 108 H (98-107) mmol/L Carbon Dioxide 27 (21-32) mmol/L Anion Gap 9.0 (3-11) BUN 23 H (7-18) mg/dl Creatinine 1.41 H (0.6-1.2) mg/dl Est Cr Clr Drug Dosing 22.1 ml/min Est GFR ( Amer) 40.1 Est GFR (Non-Af Amer) 34.6 BUN/Creatinine Ratio 16.0 (10-20) Glucose 123 H (70-99) mg/dl Calcium 10.1 (8.5-10.1) mg/dl Total Bilirubin 0.8 (0.2-1) mg/dl AST 12 L (15-37) U/L ALT 15 (12-78) U/L Alkaline Phosphatase 123 H (45-117) U/L Total Protein 6.8 (6.4-8.2) gm/dl Albumin 3.5 (3.4-5.0) gm/dl Globulin 3.3 (2.5-4.0) gm/dl Albumin/Globulin Ratio 1.1 (0.9-2) Lipase 117 (73-393) U/L Imaging Data Radiologist's Impression: Radiology results as stated below per my review and the radiologist's interpretation: CT OF THE ABDOMEN AND PELVIS WITHOUT CONTRAST CLINICAL HISTORY: Lower abdominal pain. Evaluate for small bowel obstruction. COMPARISON STUDY: CT of the abdomen and pelvis September 02, 2016. TECHNIQUE: Axial images of the abdomen and pelvis were obtained without IV cont rast. Images were reviewed in the axial, sagittal, and coronal planes. Automated exposure control was utilized for the study. A dose lowering technique was utilized adhering to the principles of ALARA. FINDINGS: A few small nodules within the lower lungs are unchanged since CT of September 02, 2016. Evaluation of the abdomen and pelvis is suboptimal on this unenhanced examination. Mild biliary ductal dilatation is unchanged and likely related to cholecystectomy. The spleen, adrenal glands and pancreas are unremarkable. A water attenuation lesion arising from the lower pole of the left kidney favors a cyst. This is unchanged. No pneumatosis, free air or portal venous gas is present. There is trace fluid within the left paracolic gutter. There are multiple loops of mildly dilated small bowel within the lower abdomen and pelvis with probable transition point within the central pelvis. There is trace associated ascites. No suspicious osseous lesions are noted. There is no lymphadenopathy. IMPRESSION: Findings consistent with a partial small bowel obstruction with probable transition point within the central pelvis. Trace associated ascites. No pneumatosis, free air or portal venous gas. Electronically signed by: Ernesto Cobb M.D. 08/05/2019 8:15 PM Blood Pressure Blood Pressure Findings: Elevated blood pressure Blood Pressure Disposition: Referred to patients primary care provider [facility] Narrative I did evaluate the patient as noted above. The patient is presenting with lower abdominal pain and vomiting. She has had a prior history of SBO and states this feels similar. IV access was established. The patient was placed on a continuous soft hat binder. I did treat her with IV morphine and Zofran. She was started on normal saline IV. I did order and review the patient's blood work as noted in the electronic medical record. White count is elevated. Creatinine and BUN are slightly elevated likely from dehydration. Potassium is slightly low. I did order a CT of the abdomen and pelvis. I did review the images myself as well as the radiology report as described above. She does have a partial small bowel obstruction. I did reevaluate the patient. She states she is feeling much better. I did discuss the test results with her. She will be hospitalized for further care and evaluation. I did discuss case with the hospitalist and binder caser. Impression & Plan Partial small bowel obstruction, Dehydration, Acute hypokalemia Discharge Plan Visit Data *Final* Discharge Date/Time: 08/05/19 22:35 Chief Complaint: Abdominal Pain Stated Complaint: PAIN IN STOMACH,THROWING UP, DIARRHEA ED Provider: Parish Rodriguez Discharge Problem: Partial small bowel obstruction, Dehydration, Acute hypokalemia Patient Disposition: Admitted As Inpatient Discharge Instructions Interventions: ED Discharge Assessment Last Done: 08/05/19 22:35 The scribe's documentation has been prepared under my direction and personally reviewed by me in its entirety. I confirm that the note above accurately reflects all work, treatment, procedures, and medical decision making performed by me.
[2019-08-05] MEDS ORDERED: ONDANSETRON INJ 2 MG/ML 2 ML VIAL IV PRN (22:55)
--- NOTE | 2019-08-05 23:10 | History & Physical Report ---
Date of Service August 05, 2019 Assessment & Plan (1) Partial small bowel obstruction: Admit to medical surgical floor. N.p.o. NSS + KCl 20 mEq at 100 mils per hour. Zofran 4 mg IV every 6 hours as needed. Famotidine 20 mg IV every 12 hours. Due to neutrophilic leukocytosis, placed on Zosyn 4.5 g IV every [address] Elizabeth, who had done her most recent colonoscopy. Present on Admission?: Yes (2) Acute kidney injury: Acute kidney injury/dehydration/benign essential hypertension/hypokalemia- Hold telmisartan/HCTZ. NSS + KCl 20 mEq at 100 mils per hour. Follow serial BMP and magnesium levels. Present on Admission?: Yes (3) Dehydration: See above Present on Admission?: Yes (4) Acute hypokalemia: See above Present on Admission?: Yes (5) Benign essential hypertension: See above Present on Admission?: Yes (6) Cerebral vascular disease: Hold clopidogrel while n.p.o. Present on Admission?: Yes History of Present Illness Chief Complaint: The patient presents to the emergency department with acute onset of abdominal pain and nausea without vomiting. Primary Care Provider: Mikel Sanford MD The patient is an 84-year-old female with a past medical history including hypertension, chronic back pain, hypertension, cerebrovascular disease, dyslipidemia, gout, hypokalemia, ovarian cancer, peripheral neuropathy, mixed urinary incontinence and previous small bowel obstruction, who presents to the emergency department with symptoms similar to her previous bowel obstruction. CT scan performed in ED suggestive of partial small bowel obstruction with transition point in the central pelvis. Allergies Allergy/AdvReac Type Severity Reaction Status Date / Time allopurinol Allergy Unknown Unknown Verified 08/05/19 22:10 Cipro Allergy Unknown UNKNOWN Unverified 12/02/16 17:39 ciprofloxacin Allergy Unknown UNKNOWN Verified 08/05/19 22:10 lisinopril AdvReac Unknown COUGH Verified 08/05/19 22:10 Home Medications Home Medications Medication Instructions Recorded Confirmed Type cholecalciferol (vitamin D3) 25 1,000 units PO DAILY 01/29/19 08/05/19 History mcg (1,000 unit) capsule nystatin 100,000 unit/gram topical 1 appln TOPICAL BID PRN #15 gm 02/03/19 08/05/19 Rx cream potassium chloride 10 mEq 10 meq PO BID #180 cap 02/03/19 08/05/19 Rx capsule,extended release telmisartan 40 1 tab PO DAILY #90 tab 03/09/19 08/05/19 Rx mg-hydrochlorothiazide 12.5 mg tablet clopidogrel 75 mg tablet 75 mg PO DAILY #90 tab 04/27/19 08/05/19 Rx cyanocobalamin (vitamin B-12) 1,000 mcg PO Q48H tab 05/23/19 08/05/19 History 1,000 mcg tablet hydrocodone-acetaminophen 1 - 2 tab PO QID PRN 08/05/19 08/05/19 History Past Med/Surg History Medical History Hypertension Kidney stone Surgical History Hx of cholecystectomy Hx of hysterectomy Social History Preferred Language: German Communication Ability: Effective Visual Impairment: No Limitations Hearing Ability: Hard of Hearing [employer] Required: No Beliefs That Will Affect Care: None marital status: Current Living Situation: Spouse current occupational status: retired Other Information That Helps Us Care for You: No Feels Safe at Home: Yes Safety Concerns: Feels Safe At This Time Smoking Status: Never smoker Do You Dip or Chew Tobacco: No ; Second Hand Exposure: No ; Tobacco Cessation Education Requested by Patient: No Hx Alcohol Use: No Hx Substance Use: No Childhood Exposure to Second-Hand Smoke: No caffeine: No Dental Care, Regularly: Yes Physical Activity Frequency: Other Physical Activity Frequency Comment: House work Seatbelt Use: never Sunscreen Use: No Review of Systems Review of Systems: The patient denies chest pain, palpitations, shortness of breath, dyspnea on exertion, cough, lower extremity swelling, sore throat, fevers, chills, sweats, vomiting, diarrhea, Blood in urine or stool, dysuria, urinary frequency or urgency, lightheadedness, dizziness, headache, memory loss, loss of consciousness, rash, abnormal bruising or bleeding, imbalance, focal weakness, numbness or tingling in arms or legs, generalized arthralgias or myalgias, back or neck pain, or night sweats. The review of systems is otherwise negative other than for that already noted above, and at least 10 systems have been reviewed. Physical Exam Physical Exam: The patient is awake, alert and oriented 3, normocephalic and atraumatic, lying in bed and in no acute distress. HEENT--PERRL, EOMI, mucous membranes and oropharynx dry. Neck--supple. No JVD. No bruits. Thyroid normal, trachea midline, no adenopathy. Heart--normal S1 and S2. No murmurs, rubs or gallops. Lungs--clear bilaterally, no respiratory distress, no accessory muscle use. Abdomen--normal bowel sounds and soft. Nontender. Nondistended. Extremities--no cyanosis or clubbing. No edema. There are good distal pulses b/l. Dermatologic--normal skin turgor, normal color, no abnormal lymph nodes, no rash. Neurologic--cranial nerves II through XII grossly intact. Rheumatologic--normal range of motion. Psychiatric--normal affect. Results & Data Vital Signs (Past 12 Hours) Vital Signs Temp Pulse Pulse Resp BP BP Pulse Ox 08/05/19 22:27 75 16 125/65 96 08/05/19 20:41 75 16 125/70 93 08/05/19 19:10 80 16 133/63 98 08/05/19 18:44 96 08/05/19 17:59 97.7 F 91 H 18 146/83 H 96 Laboratory Results Laboratory Results WBC 13.40 K/uL (4.8-10.8) H 08/05/19 18:35 RBC 4.20 M/uL (4.2-5.4) 08/05/19 18:35 Hgb 13.3 g/dL (12.0-16.0) 08/05/19 18:35 Hct 38.7 % (37-47) 08/05/19 18:35 MCV 92.1 fL (80-100) 08/05/19 18:35 MCH 31.7 pg (25-34) 08/05/19 18:35 MCHC 34.4 g/dL (32-36) 08/05/19 18:35 RDW Std Deviation 45.7 fL (36.4-46.3) 08/05/19 18:35 RDW Coeff of [place] 13.6 % (11.5-14.5) 08/05/19 18:35 Plt Count 295 K/uL (130-400) 08/05/19 18:35 MPV 9.8 fL (7.4-10.4) 08/05/19 18:35 Immature Gran % (Auto) 0.2 % 08/05/19 18:35 Neut % (Auto) 90.9 % 08/05/19 18:35 Lymph % (Auto) 4.9 % 08/05/19 18:35 [place] % (Auto) 3.7 % 08/05/19 18:35 Eos % (Auto) 0.1 % 08/05/19 18:35 Baso % (Auto) 0.2 % 08/05/19 18:35 Immature Gran # (Auto) 0.03 K/uL (0.00-0.02) H 08/05/19 18:35 Neut # (Auto) 12.18 K/uL (1.4-6.5) H 08/05/19 18:35 Lymph # (Auto) 0.65 K/uL (1.2-3.4) L 08/05/19 18:35 [place] # (Auto) 0.50 K/uL (0.11-0.59) 08/05/19 18:35 Eos # (Auto) 0.01 K/uL (0-0.5) 08/05/19 18:35 Baso # (Auto) 0.03 K/uL (0-0.2) 08/05/19 18:35 Sodium 144 mmol/L (136-145) 08/05/19 18:35 Potassium 3.0 mmol/L (3.5-5.1) L 08/05/19 18:35 Chloride 108 mmol/L (98-107) H 08/05/19 18:35 Carbon Dioxide 27 mmol/L (21-32) 08/05/19 18:35 Anion Gap 9.0 (3-11) 08/05/19 18:35 BUN 23 mg/dl (7-18) H 08/05/19 18:35 Creatinine 1.41 mg/dl (0.6-1.2) H 08/05/19 18:35 Est Cr Clr Drug Dosing 22.1 ml/min 08/05/19 18:35 Est GFR ( Amer) 40.1 08/05/19 18:35 Est GFR (Non-Af Amer) 34.6 08/05/19 18:35 BUN/Creatinine Ratio 16.0 (10-20) 08/05/19 18:35 Glucose 123 mg/dl (70-99) H 08/05/19 18:35 Calcium 10.1 mg/dl (8.5-10.1) 08/05/19 18:35 Total Bilirubin 0.8 mg/dl (0.2-1) 08/05/19 18:35 AST 12 U/L (15-37) L 08/05/19 18:35 ALT 15 U/L (12-78) 08/05/19 18:35 Alkaline Phosphatase 123 U/L (45-117) H 08/05/19 18:35 Total Protein 6.8 gm/dl (6.4-8.2) 08/05/19 18:35 Albumin 3.5 gm/dl (3.4-5.0) 08/05/19 18:35 Globulin 3.3 gm/dl (2.5-4.0) 08/05/19 18:35 Albumin/Globulin Ratio 1.1 (0.9-2) 08/05/19 18:35 Lipase 117 U/L (73-393) 08/05/19 18:35 Urine Color Yellow 08/05/19 23:30 Urine Appearance Clear (Clear) 08/05/19 23:30 Urine pH 5.0 (4.5-7.5) 08/05/19 23:30 Ur Specific [place] 1.020 (1.000-1.030) 08/05/19 23:30 Urine Protein Negative (Negative) 08/05/19 23:30 Urine Glucose (UA) Negative (Negative) 08/05/19 23:30 Urine Ketones Trace (Negative) H 08/05/19 23:30 Urine Blood Negative (Negative) 08/05/19 23:30 Urine Nitrite Negative (Negative) 08/05/19 23:30 Urine Bilirubin Negative (Negative) 08/05/19 23:30 Urine Urobilinogen Negative (Negative) 08/05/19 23:30 Ur Leukocyte Esterase Negative (Negative) 08/05/19 23:30 Diagnostic Findings [facility], [place] [phone] CT Scan Report Patient: MIGUEL TORRES AAdmit Date: 08/05/19 MR#: [id number]: [address] [place] [address] Acct ID:[id number]: Date: 1935City Zip: [place] [address] Age: 84Location: ED Sex: F Room/Bed: Att Phy:Diagnosis: PAIN IN STOMACH,THROWING UP, DIARRHEA Anne Phy: Mikel Sanford MDService Date: 08/05/19 Fam Phy:Interpreting Phy: Ernesto Cobb MD Admit Phy: Ordering Phy: Parish Rodriguez MD cc: ~ CT OF THE ABDOMEN AND PELVIS WITHOUT CONTRAST CLINICAL HISTORY: Lower abdominal pain. Evaluate for small bowel obstruction. COMPARISON STUDY: CT of the abdomen and pelvis September 02, 2016. TECHNIQUE: Axial images of the abdomen and pelvis were obtained without IV contrast. Images were reviewed in the axial, sagittal, and coronal planes. Automated exposure control was utilized for the study. A dose lowering technique was utilized adhering to the principles of ALARA. FINDINGS: A few small nodules within the lower lungs are unchanged since CT of September 02, 2016. Evaluation of the abdomen and pelvis is suboptimal on this unenhanced examination. Mild biliary ductal dilatation is unchanged and likely related to cholecystectomy. The spleen, adrenal glands and pancreas are unremarkable. A water attenuation lesion arising from the lower pole of the left kidney favors a cyst. This is unchanged. No pneumatosis, free air or portal venous gas is present. There is trace fluid within the left paracolic gutter. There are multiple loops of mildly dilated small bowel within the lower abdomen and pelvis with probable transition point within the central pelvis. There is trace associated ascites. No suspicious osseous lesions are noted. There is no lymphadenopathy. IMPRESSION: Findings consistent with a partial small bowel obstruction with probable transition point within the central pelvis. Trace associated ascites. No pneumatosis, free air or portal venous gas. Electronically signed by: Ernesto Cobb M.D. 08/05/2019 8:15 PM Dictated: 08/05/192006 Transcribed: 08/05/192006 Code Status & VTE Plan Code Status Full code VTE Prophylaxis Plan VTE Prophylaxis will be ordered: Yes PG Care Time/CCT Total # of Minutes Spent Total Time Spent with Patient: Total time spent is greater than 50% in coordination of care (as documented) at patient's floor/unit and/or counseling patient:
[2019-08-05 23:45] LABS: Appearance Urine Clear (Clear); Bilirubin Urine Negative (Negative); Blood Urine Negative (Negative); Color Urine Yellow; Glucose Urine UA Negative (Negative); Ketones Urine Trace (Negative); Leukocyte Esterase Urine Negative (Negative); Nitrite Urine Negative (Negative); Protein Urine Negative (Negative); Urobilinogen Urine Negative (Negative)
[2019-08-05] MEDS: FAMOTIDINE 20 MG in SYRINGE 3 ML IV SCH (23:51)
[2019-08-05] MEDS: NSS + 20MEQ KCL 20 MEQ/1,000 ML BAG IV SCH (23:51)
[2019-08-06] MEDS ORDERED: PIPERACILL/TAZOBAC CONSULT ACTIVE PRN (03:24)
[2019-08-06] MEDS ORDERED: PIPERACILLIN/TAZOBACTAM 4.5 GM in DEXTROSE 5% 100 ML IV SCH (03:30)
[2019-08-06] MEDS ORDERED: PIPERACILLIN/TAZOBACTAM 3.375 GM in DEXTROSE 5% 100 ML IV ONE (04:00)
[2019-08-06 08:01] LABS: Basophils # (auto) 0.02 K/uL (0-0.2); Basophils % (auto) 0.3 %; Eosinophils # (auto) 0.15 K/uL (0-0.5); Eosinophils % (auto) 1.9 %; Hematocrit (blood only) 36.4 % (37-47); Hemoglobin 12.2 g/dL (12.0-16.0); Immature Granulocytes # (auto) 0.01 K/uL (0.00-0.02); Immature Granulocytes % (auto) 0.1 %; Lymphocytes # (auto) 1.61 K/uL (1.2-3.4); Lymphocytes % (auto) 20.9 %; Mean Corpuscular Hemoglobin 31.4 pg (25-34); Mean Corpuscular Hgb Conc 33.5 g/dL (32-36); Mean Corpuscular Volume 93.6 fL (80-100); Mean Platelet Volume 10.2 fL (7.4-10.4); Monocytes # (auto) 0.65 K/uL (0.11-0.59); Monocytes % (auto) 8.4 %; Neutrophils # (auto) 5.26 K/uL (1.4-6.5); Neutrophils % (auto) 68.4 %; Platelet Count 286 K/uL (130-400); RDW Coefficient of Variation 13.8 % (11.5-14.5); RDW Standard Deviation 46.9 fL (36.4-46.3); Red Blood Count 3.89 M/uL (4.2-5.4)
[2019-08-06 08:17] LABS: Partial Thromboplastin Ratio 0.8; Partial Thromboplastin Time 21.7 Seconds (21.0-31.0); Prothrombin Time 10.3 Seconds (9.0-12.0)
[2019-08-06 08:36] LABS: Albumin Level 2.9 gm/dl (3.4-5.0); BUN Creatinine Ratio 13.8 (10-20); Calcium 8.8 mg/dl (8.5-10.1); Creatinine Clr Calc Pharmacy 22.1 ml/min; Est GFR (African American) 40.1; Est GFR (Non-African American) 34.6; Potassium 3.1 mmol/L (3.5-5.1)
[2019-08-06 08:39] LABS: Albumin Globulin Ratio 0.9 (0.9-2); Bilirubin,Total 1.1 mg/dl (0.2-1); Globulin 3.1 gm/dl (2.5-4.0)
[2019-08-06] MEDS: FAMOTIDINE 20 MG in SYRINGE 3 ML IV SCH ×2 (08:58→20:14)
[2019-08-06] MEDS ORDERED: POTASSIUM CHLORIDE 40 MEQ in SODIUM CHLORIDE 0.9% 1000ML 1,000 ML IV SCH (09:10)
[2019-08-06] MEDS ORDERED: POTASSIUM CHLORIDE / WTR 10 MEQ/100 ML PLCT IV ONE (09:10)
[2019-08-06] MEDS: NSS + 20MEQ KCL 20 MEQ/1,000 ML BAG IV SCH (09:36)
[2019-08-06] MEDS ORDERED: PIPERACILLIN/TAZOBACTAM 3.375 GM in DEXTROSE 5% 100 ML IV SCH (10:00)
--- NOTE | 2019-08-06 14:52 | Consultation Report ---
DATE OF CONSULTATION: 08/06/2019 GASTROINTESTINAL CONSULTATION REASON FOR CONSULTATION: Partial bowel obstruction. HISTORY OF PRESENT ILLNESS: The patient is an 84-year-old who has a prior history of ovarian cancer in 1987, status post hysterectomy followed by radiation therapy. She had an attempted colonoscopy a few months ago and was unable to navigate through the colon due to adhesions and acute angulations that were fixed in the bowel, probably as a result of her radiation therapy. About 4 years ago, she developed a partial small-bowel obstruction, which resolved on its own without surgical intervention. It was presumed at that time that it was from radiation adhesions. Two days ago, she began experiencing some crampy abdominal pain, very similar to her episode 4 years ago and then yesterday started vomiting and having some loose stools. She presented to the hospital where she had a CT scan that showed some dilated loops of small bowel, tethered in the central pelvis consistent with adhesions. She has received some bowel rest and pain medication and her abdominal pain is improved. She did have 2 liquidy bowel movements earlier today. She is still n.p.o. except ice chips. PAST MEDICAL HISTORY: Remarkable for hypertension, chronic back pain, cerebrovascular disease, dyslipidemia, gout, hypokalemia, ovarian cancer, peripheral neuropathy and some urinary incontinence. MEDICATIONS: Per list. ALLERGIES: ALLOPURINOL, CIPRO, AND LISINOPRIL. PAST SURGICAL HISTORY: Includes hysterectomy, cholecystectomy and operation for right kidney stone. SOCIAL HISTORY: The patient is , lives with her spouse. Does not smoke or drink alcohol. FAMILY HISTORY: Noncontributory. REVIEW OF SYSTEMS: Negative for 12 systems. PHYSICAL EXAMINATION: GENERAL: The patient appears awake, alert, in no acute distress. VITAL SIGNS: Normal. She is afebrile. ABDOMEN: Shows a low midline scar, a right upper quadrant scar and a right flank scar. Abdomen is not really distended or tympanitic at this time and there are no masses or tenderness appreciated. There is no CVA tenderness. NEUROLOGIC: Nonfocal. IMPRESSION AND PLAN: The patient presents with a partial small-bowel obstruction with apparent adhesions in the pelvis from radiation for ovarian cancer in 1987. At this point, she seems to be improving. I plan on advancing her to clear liquids to see how she tolerates them. Dr. Timo Benedict will be covering this weekend.
--- NOTE | 2019-08-06 15:27 | Hospitalist Progress Note ---
Date of Service August 06, 2019 Assessment & Plan (1) Partial small bowel obstruction: Given NSS with 40 mEq K x 1 bag - will discontinue this afternoon as patient will start clears Zofran 4 mg IV every 6 hours as needed. Famotidine 20 mg IV every 12 hours. Consult GI - to start clears this evening Will dc Zosyn - patient with leukocytosis on admission now resolved, was never febrile, no obvious s/s of infection, U/A without apparent infection (2) Acute kidney injury: Acute kidney injury/dehydration/benign essential hypertension/hypokalemia- Hold telmisartan/HCTZ. NSS + KCl 20 mEq at 100 mils per hour. repeat cmp am (3) Dehydration: See above (4) Acute hypokalemia: replaced, repeat cmp am (5) Benign essential hypertension: stable, continue to hold medications as above (6) Cerebral vascular disease: resume clopidogrel now that she is taking po Subjective Ms. Granger was no longer nauseas when I saw her this morning. She had some mild abdominal tenderness but otherwise had no complaints. ROS Constitutional: no chills, aches, sweats or fever Respiratory: no sob,cough, sputum, or wheezing Cardiac: no chest pain, palpitations, edema, orthopnea or lightheadedness GI: see HPI : no dysuria or hesitancy Extremities: no joint pain or weakness Skin: no rash All other systems reviewed and negative Physical Exam Physical Exam: General: no distress Eyes: normal inspection, PERLL Respiratory: chest non tender, clear to auscultation, normal breath sounds, no respiratory distress, no accessory muscle use Cardiac: regular rate and rhythm, no rub or gallop, no murmur, no edema, no jvd GI/: active bowel sounds, no abd pain or tenderness, soft, non distended Extremities: normal range of motion, normal strength, non tender Neuro/Psych: alert and oriented x 3, normal mood and affect Skin: normal color, dry Results & Data Vital Signs (Past 12 Hours) Vital Signs Temp Pulse Pulse Resp BP Pulse Ox 08/06/19 15:17 36.6 C 60 17 118/72 96 08/06/19 07:50 36.4 C L 80 14 100/64 94 PG Care Time/CCT Total # of Minutes Spent Total Time Spent with Patient: Total time spent is greater than 50% in co ordination of care (as documented) at patient's floor/unit and/or counseling patient:
[2019-08-06] MEDS: POTASSIUM CHLORIDE 10 MEQ TABCR PO SCH (20:09)
[2019-08-07 07:20] LABS: Basophils # (auto) 0.04 K/uL (0-0.2); Basophils % (auto) 0.9 %; Eosinophils # (auto) 0.26 K/uL (0-0.5); Eosinophils % (auto) 5.7 %; Hematocrit (blood only) 33.8 % (37-47); Hemoglobin 10.9 g/dL (12.0-16.0); Immature Granulocytes # (auto) 0.01 K/uL (0.00-0.02); Immature Granulocytes % (auto) 0.2 %; Lymphocytes # (auto) 1.25 K/uL (1.2-3.4); Lymphocytes % (auto) 27.5 %; Mean Corpuscular Hemoglobin 31.1 pg (25-34); Mean Corpuscular Hgb Conc 32.2 g/dL (32-36); Mean Corpuscular Volume 96.3 fL (80-100); Monocytes # (auto) 0.48 K/uL (0.11-0.59); Monocytes % (auto) 10.6 %; Neutrophils % (auto) 55.1 %; Platelet Count 225 K/uL (130-400); RDW Coefficient of Variation 13.9 % (11.5-14.5); RDW Standard Deviation 48.5 fL (36.4-46.3); Red Blood Count 3.51 M/uL (4.2-5.4); White Blood Count 4.54 K/uL (4.8-10.8)
[2019-08-07 07:32] LABS: Prothrombin Time 10.7 Seconds (9.0-12.0)
[2019-08-07 07:57] LABS: Albumin Level 2.7 gm/dl (3.4-5.0); BUN Creatinine Ratio 10.8 (10-20); Calcium 8.6 mg/dl (8.5-10.1); Creatinine Clr Calc Pharmacy 23.8 ml/min; Est GFR (African American) 43.8; Est GFR (Non-African American) 37.8; Potassium 3.4 mmol/L (3.5-5.1)
[2019-08-07 07:59] LABS: Albumin Globulin Ratio 0.9 (0.9-2); Bilirubin,Total 0.7 mg/dl (0.2-1); Globulin 2.9 gm/dl (2.5-4.0); Total Protein 5.6 gm/dl (6.4-8.2)
[2019-08-07] MEDS ORDERED: POTASSIUM CHLORIDE 20 MEQ TABCR PO STA (08:41)
[2019-08-07] MEDS ORDERED: CHOLECALCIFEROL 1,000 UNITS TAB PO SCH (09:00)
[2019-08-07] MEDS ORDERED: CYANOCOBALAMIN 500 MCG TABLET (VITAMIN B-12) PO SCH (09:00)
[2019-08-07] MEDS ORDERED: CLOPIDOGREL BISULFATE 75 MG TAB PO SCH (09:00)
[2019-08-07] MEDS: FAMOTIDINE 20 MG in SYRINGE 3 ML IV SCH (09:10)
[2019-08-07] MEDS: POTASSIUM CHLORIDE 10 MEQ TABCR PO SCH (09:11)
--- NOTE | 2019-08-07 09:56 | Gastroenterology Progress Note ---
Date of Service August 07, 2019 Assessment & Plan (1) Partial small bowel obstruction: Appears resolved. Advance diet. Ok to discharge patient. Present on Admission?: Yes Subjective Doing well. Moving bowels. Hungry. Tolerated diet. Physical Exam Gastrointestinal (Abdomen): Inspection/Auscultation: abdomen normal to inspection Percussion/Palpation: abdomen soft; abdomen nontender Results & Data Vital Signs (Past 12 Hours) Vital Signs Temp Pulse Pulse Resp BP BP Pulse Ox 08/07/19 08:00 36.7 C 63 18 108/63 97 08/06/19 23:30 36.3 C L 84 16 114/70 91
--- NOTE | 2019-08-07 15:40 | Discharge Summary ---
Date of Service August 07, 2019 Admission HPI Per Admitting Provider The patient is an 84-year-old female with a past medical history including hypertension, chronic back pain, hypertension, cerebrovascular disease, dyslipidemia, gout, hypokalemia, ovarian cancer, peripheral neuropathy, mixed urinary incontinence and previous small bowel obstruction, who presents to the emergency department with symptoms similar to her previous bowel obstruction. CT scan performed in ED suggestive of partial small bowel obstruction with transition point in the central pelvis. Principal Diagnosis small bowel obstruction Discharge Exam Constitutional WD/WN, vitals as above Respiratory normal respiratory effort, lungs clear to auscultation Gastrointestinal (Abdomen) Inspection/Auscultation: abdomen normal to inspection and normal bowel sounds; abdomen not distended Percussion/Palpation: abdomen soft; abdomen nontender Musculoskeletal no cyanosis or clubbing, extremities motor strength 5/5 Skin no rashes, warm and dry Neurologic moves all extremities and awake Psychiatric A+Ox3, euthymic affect Discharge Data Allergies Allergy/AdvReac Type Severity Reaction Status Date / Time allopurinol Allergy Unknown Unknown Verified 08/05/19 22:10 Cipro Allergy Unknown UNKNOWN Unverified 12/02/16 17:39 ciprofloxacin Allergy Unknown UNKNOWN Verified 08/05/19 22:10 lisinopril AdvReac Unknown COUGH Verified 08/05/19 22:10 Consultations 08/05/19 20:26 ED Decision to Admit Stat 08/05/19 22:55 Consult Case Management - Discharge Planning Routine Consult Gastroenterology Routine Ordered Studies 08/05/19 18:12 CT abd pelvis wo con Stat Hospital Course (1) Partial small bowel obstruction: Resolved IVF, zofran, famotidine Consult GI - to start clears this evening Dc'd Zosyn - patient with leukocytosis on admission now resolved, was never febrile, no obvious s/s of infection, U/A without apparent infection (2) Acute kidney injury: Acute kidney injury/dehydration/benign essential hypertension/hypokalemia- Hold telmisartan/HCTZ until follow up with pcp, blood pressures have been stable NSS + KCl 20 mEq at 100 mils per hour. repeat cmp am (3) Dehydration: See above (4) Acute hypokalemia: replaced, repeat cmp am (5) Benign essential hypertension: stable, continue to hold medications as above (6) Cerebral vascular disease: resume clopidogrel now that she is taking po Total Time Total Time Spent Total Time Spent (In Minutes): greater than 30 minutes Discharge Plan Discharge Items Patient Disposition: Home - Self-Care Reason For Visit: PSBO, HYPOKALEMIA Discharge Diagnosis: Small bowel obstruction Non-emergency contact: Primary Care Provider Call non-emergency contact if: you have any medication questions, your symptoms worsen and you have a fever Follow-up/Referrals: Mikel Sanford MD [Primary Care Provider] - Diet: Low Fiber and Low Fat Addtl Attending Provider Instructions: Please see your primary care provider in a week (1) Partial small bowel obstruction: Now resolved. Please call your doctor if your symptoms return or return to the emergency department if you are unable to keep fluids down or develop abdominal pain. You were seen by Dr. Ortiz and Dr. Benedict from [facility] gastroenterology while you were here. (2) Acute kidney injury: Your kidney function decreased slightly due to dehydration. It is improving but not all the way resolved. Try to drink plenty of water and keep hydrated. Please hold your telmisartan-hctz until you follow up with your pcp. (3) Acute hypokalemia (low potassium): Your potassium was low likely due to poor oral intake. You should take 30 mEq of potassium total for 7 days instead of 20 mEq to keep your potassium levels up until you are eating normally again. (4) Benign essential hypertension: stable, continue to hold medications as above Pending Studies at Discharge: No Stand-Alone Forms: My [facility] [place], Smoking Cessation Medications and DC Order Prescriptions: New potassium chloride 10 mEq capsule, extended release 10 meq PO DAILY Qty: 7 RF: 0 Continued clopidogrel 75 mg tablet 75 mg PO DAILY Qty: 90 RF: 3 cholecalciferol (vitamin D3) 1,000 unit capsule 1,000 units PO DAILY RF: 0 nystatin 100,000 unit/gram cream 1 appln topical BID PRN (Reason: angular cheilitis) Qty: 15 RF: 0 potassium chloride 10 mEq capsule, extended release 10 meq PO BID Qty: 180 RF: 3 cyanocobalamin (vitamin B-12) 1,000 mcg tablet 1,000 mcg PO Q48H RF: 0 hydrocodone-acetaminophen 5-325 mg tablet 1 - 2 tab PO QID PRN (Reason: pain) RF: 0 Discontinued telmisartan-hydrochlorothiazid 40-12.5 mg tablet 1 tab PO DAILY Qty: 90 RF: 3 Discharge Orders: Discharge Order (Routine); Ordered 08/07/19 Ordered By: Quiana Bright/Other Patient Handouts: Obstruction Sm Bowel Admission Data Admit Date/Time: 08/05/19 22:03 Attending Provider: Juan Aaron Admit Provider: Raji Bonilla Primary Care Provider: Mikel Sanford Other Providers: Levi Elizabeth ; Juan Aaron Other Interventions: Discharge Summary Assessment (RN) Last Done: 08/07/19 15:48 DC Date/Time DO NOT enter until pt leaves facility: 08/07/19 16:25 Supervising Physician Co-Signing Physician Notes I supervised Quiana Rocha NP on this patient's care. I examined the patient today independently of her. I discussed the plan of care with her with the plan being as written in her note except for any following changes/exceptions: None. Doing well. Eager to go home. No further nausea or vomiting or pain. Diarrhea improving.
== END 2019-08-07 16:25 | disposition home or self-care (01) | DRG 389 ==
LOC: ED 17:38 → 3N 22:03 → SUATTDRO 22:03 → 3N 22:35

== ENCOUNTER 2021-03-21 05:15 | Observation (INO) ==
[2021-03-21] MEDS ORDERED: fentaNYL citrate 100 MCG/2 ML VIAL IV STA (05:26)
[2021-03-21] MEDS ORDERED: ONDANSETRON INJ 2 MG/ML 2 ML VIAL IV STA (05:26)
[2021-03-21] MEDS ORDERED: SODIUM CHLORIDE 0.9% 1000ML 500 ML IV ONE (05:26)
--- NOTE | 2021-03-21 05:31 | Emergency Department Note ---
Impression & Plan Small bowel obstruction ED Provider Note Name: MIGUEL TORRES Age: 85 Sex: F Arrives Via: Walk-In Informant: Patient ED Provider: Alejo Leon MD Chief Complaint: abdominal pain Impression: Small bowel obstruction Medical Decision Makin yr old female with extensive PMH who has previous hysterectomy/cholecystectomy with several episodes of SBO over the years. Arrives with worsening abdominal pain over the last 2 days with vomiting. Given small dose fentanyl with rapid improvement in pain. Labs unremarkable. Sent to CT and findings of partial/early SBO noted. She is still feeling OK and is agreeable to monitoring in hospital. Prior Medical Record and Triage/Nursing Notes reviewed by Me Additional history obtained from chart Differentials:Gastroenteritis, food borne illness, infections, appendicitis, diverticulitis, inflammatory bowel disease, obstruction, GI bleed, biliary pathology, volvulus, as well as other pathologies. Vital Signs: reviewed and remarkable for no significant abnormalities Interventions: saline lock, fentanyl 25mcg iv, zofran 4mg iv, nss bolu Labs:Reviewed and remarkable for no significant abnormalities Imaging:Radiologist interpretation reviewed by me: IMPRESSION: Findings suggestive of a partial small bowel obstruction. Small amount of ascites and mesenteric infiltration. Findings discussed with Dr. Leon at time of dictation. Consults:Dr Mikey SMITH Hospitalist Plan: Disposition:Hospitalization. Condition: Good History of Present Illness:85 yr old female arrives for evaluation of abdominal pain. Patient with episode abdominal pain and nausea on Friday. Notes normal BM that day and then feeling a bit better. Since then increasing feeling of pressure in abdomen and tonight worsening pain. Associated nausea and vomiting. No BM the last 36 hours. No medications taken for this. Movement makes worse, rest makes better. Symptoms similar to previous bowel obstructions. Notes previous hysterectomy. Denies falls, trauma, injuries. No blood in vomiting/stool. Denies chest pain, sob, headache, neck pain, bruising, rashes, leg swelling, back pain, fevers, chills, syncope, nor other symptoms. ROS: See above HPI for pertinent positives & negatives. A total of 10 systems reviewed and were otherwise negative. Past Medical History:See Below Past Surgical History:See Below Family History:See Below Social History:See Below Home Medications:See Below Allergies:cipro, allopurinol, lisinopril Vitals:Blood Pressure: 134/71, Pulse 81, RR 20, T 36.6C, O2 94% on RA Physical Exam: GENERAL: Patient is uncomfortable appearing and in moderate distress. EYES: No scleral icterus, unremarkable pupils. ENT: Mucous membranes moist, no nasal congestion. NECK: No masses appreciated, nomeningismus, trachea is midline. RESPIRATORY: No dyspnea. Clear to auscultation and equal bilaterally. No wheeze, no rhonchi. CARDIOVASCULAR: Regular rate and rhythm.No murmurs, rubs, gallops appreciated. GASTROINTESTINAL: Mildly distended with hyperactive bowel sounds, soft throughout without peritonitis. BACK: No midline tenderness, no CVA tenderness EXTREMITIES: Normal motion all extremities, no cyanosis, no edema. NEUROLOGIC: Alert and oriented, no acute motor or sensory deficits, no focal weakness, cranial nerves grossly intact. SKIN: No rash, no jaundice, no diaphoresis. PSYCH: Appropriate GCS: 15 ED Course: Times/Reassessments: vastly improved with pain medications Alejo Leon MD Past Med/Surg History Medical History BCC (basal cell carcinoma) Excised per PCP records (left ankle) Breast cancer, left (~02/2021) Recently dx'ed Chronic diarrhea Dizziness with leg weakness. following with PCP currently. Gout hx Hx of blood clots (~2011) Hx of DVT to left leg= r/t immobility after an injury to foot. No blood thinners currently per md direction. 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 states she had testing done that was negative. Weight loss, unintentional Surgical History H/O melanoma excision H/O nephrolithotomy with removal of calculi History of breast biopsy History of colonoscopy History of esophagogastroduodenoscopy (EGD) Hx of cholecystectomy Hx of tonsillectomy 1949 S/P SARIKA-BSO Family History Other No family history of adverse response to anesthesia No pertinent family history Social History Smoking Status: Never smoker Second Hand Exposure: No; Do You Dip or Chew Tobacco: No; Hx Alcohol Use: No Hx Substance Use: No Preferred Language: [place] Communication Ability: Effective Visual Impairment: No Limitations Hearing Ability: Hard of Hearing Environmental Director Required: No Beliefs That Will Affect Care: None marital status: Current Living Situation: Spouse current occupational status: retired Other Information That Helps Us Care for You: No Feels Safe at Home: Yes Safety Concerns: Feels Safe At This Time Childhood Exposure to Second-Hand Smoke: No caffeine: No Dental Care, Regularly: Yes Physical Activity Frequency: Other Physical Activity Frequency Comment: House work Seatbelt Use: never Sunscreen Use: No Assistive Devices: Glasses Allergies Allergies Allergy/AdvReac Type Severity Reaction Status Date / Time Cipro Allergy Unknown UNKNOWN Unverified 12/02/16 17:39 ciprofloxacin Allergy Unknown UNKNOWN Verified 03/21/21 07:37 allopurinol AdvReac Unknown bladder Verified 03/21/21 07:37 infection lisinopril AdvReac Unknown COUGH Verified 03/21/21 07:37 Home Meds Home Medications Medication Instructions Recorded Confirmed cyanocobalamin (vitamin B-12) 1,000 mcg PO Q48H tab 05/23/19 03/21/21 1,000 mcg tablet vit C 250 mg-vit E 200 unit-zinc 1 tab PO BID 11/28/20 03/21/21 12.5 mg-copper 1 [id number] tablet (ICaps AREDS2 (copper citrate)) cholecalciferol (vitamin D3) 50 2,000 units PO QAM 03/15/21 03/21/21 mcg (2,000 unit) tablet dicyclomine 10 mg capsule 10 mg PO BID 03/15/21 03/21/21 loperamide 2 mg capsule 2 mg PO DAILY PRN 03/15/21 03/21/21 telmisartan 40 1 tab PO QAM 03/15/21 03/21/21 mg-hydrochlorothiazide 12.5 mg tablet (Micardis HCT) Previous Rx's Medication Instructions Recorded potassium chloride 10 mEq 10 meq PO BID #180 cap 11/08/20 capsule,extended release clobetasol 0.05 % topical ointment 1 applic TOPICAL DAILY #15 g 11/28/20 Results & Data (ED) Vital Signs Vital Signs - 24 hr 03/21/21 06:02 Pulse Rate [Apical] 66 Pulse Rhythm [Apical] Regular Pulse Strength [Apical] Normal Respiratory Rate 18 Respiratory Effort / Characteristics Non-Labored Respiratory Depth Normal Blood Pressure [Left Arm] 137/76 Blood Pressure Mean [Left Arm] 96 Blood Pressure Position [Left Arm] Lying Pulse Oximetry 95 Oxygen Delivery Method Room Air Laboratory Data Result diagrams: 03/21/21 05:37 03/21/21 05:37 Lab Results 03/21/21 03/21/21 03/21/21 Range/Units 05:37 05:37 05:37 WBC 9.72 (4.8-10.8) K/uL RBC 3.83 L (4.2-5.4) M/uL Hgb 11.6 L (12.0-16.0) g/dL Hct 36.3 L (37-47) % MCV 94.8 (80-100) fL MCH 30.3 (25-34) pg MCHC 32.0 (32-36) g/dL RDW Std Deviation 50.5 H (36.4-46.3) fL RDW Coeff of [place] 14.6 H (11.5-14.5) % Plt Count 261 (130-400) K/uL MPV 10.9 H (7.4-10.4) fL Immature Gran % (Auto) 0.3 % Neut % (Auto) 76.3 % Lymph % (Auto) 11.7 % [place] % (Auto) 9.8 % Eos % (Auto) 1.7 % Baso % (Auto) 0.2 % Neut # (Auto) 7.41 H (1.4-6.5) K/uL Lymph # (Auto) 1.14 L (1.2-3.4) K/uL [place] # (Auto) 0.95 H (0.11-0.59) K/uL Eos # (Auto) 0.17 (0-0.5) K/uL Baso # (Auto) 0.02 (0-0.2) K/uL Immature Gran # (Auto) 0.03 H (0.00-0.02) K/uL Sodium 141 (136-145) mmol/L Potassium 3.7 (3.5-5.1) mmol/L Chloride 114 H (98-107) mmol/L Carbon Dioxide 22 (21-32) mmol/L Anion Gap 5.0 (3-11) BUN 23 H (7-18) mg/dl Creatinine 1.19 (0.6-1.2) mg/dl Est Cr Clr Drug Dosing 25.7 ml/min Est GFR ( Amer) 48.9 ml/min Est GFR (Non-Af Amer) 42.2 ml/min BUN/Creatinine Ratio 19.2 (10-20) Glucose 115 H (70-99) mg/dl Calcium 9.4 (8.5-10.1) mg/dl Total Bilirubin 0.6 (0.2-1) mg/dl Direct Bilirubin 0.1 (0-0.2) mg/dl AST 13 L (15-37) U/L ALT 15 (12-78) U/L Alkaline Phosphatase 124 H (45-117) U/L Total Protein 6.2 L (6.4-8.2) gm/dl Albumin 2.9 L (3.4-5.0) gm/dl Lipase 143 (73-393) U/L Urine Color Yellow Urine Appearance Clear (Clear) Urine pH 5.0 (4.5-7.5) Ur Specific [place] 1.015 (1.000-1.030) Urine Protein Negative (Negative) Urine Glucose (UA) Negative (Negative) Urine Ketones Trace H (Negative) Urine Blood Negative (Negative) Urine Nitrite Positive A (Negative) Urine Bilirubin Negative (Negative) Urine Urobilinogen Negative (Negative) Ur Leukocyte Esterase 2+ H (Negative) Urine WBC (Auto) >30 H (0-5) /hpf Urine RBC (Auto) 0-4 (0-4) /hpf U Hyaline Cast (Auto) 1-5 (0-5) /lpf U Epithel Cells (Auto) 5-10 H (0-5) /lpf Urine Bacteria (Auto) 3+ H (Negative) COVID-19 Eval Order SARS-CoV-2 (PCR) (Negative) 03/21/21 03/21/21 Range/Units 05:48 05:48 WBC (4.8-10.8) K/uL RBC (4.2-5.4) M/uL Hgb (12.0-16.0) g/dL Hct (37-47) % MCV (80-100) fL MCH (25-34) pg MCHC (32-36) g/dL RDW Std Deviation (36.4-46.3) fL RDW Coeff of [place] (11.5-14.5) % Plt Count (130-400) K/uL MPV (7.4-10.4) fL Immature Gran % (Auto) % Neut % (Auto) % Lymph % (Auto) % [place] % (Auto) % Eos % (Auto) % Baso % (Auto) % Neut # (Auto) (1.4-6.5) K/uL Lymph # (Auto) (1.2-3.4) K/uL [place] # (Auto) (0.11-0.59) K/uL Eos # (Auto) (0-0.5) K/uL Baso # (Auto) (0-0.2) K/uL Immature Gran # (Auto) (0.00-0.02) K/uL Sodium (136-145) mmol/L Potassium (3.5-5.1) mmol/L Chloride (98-107) mmol/L Carbon Dioxide (21-32) mmol/L Anion Gap (3-11) BUN (7-18) mg/dl Creatinine (0.6-1.2) mg/dl Est Cr Clr Drug Dosing ml/min Est GFR ( Amer) ml/min Est GFR (Non-Af Amer) ml/min BUN/Creatinine Ratio (10-20) Glucose (70-99) mg/dl Calcium (8.5-10.1) mg/dl Total Bilirubin (0.2-1) mg/dl Direct Bilirubin (0-0.2) mg/dl AST (15-37) U/L ALT (12-78) U/L Alkaline Phosphatase (45-117) U/L Total Protein (6.4-8.2) gm/dl Albumin (3.4-5.0) gm/dl Lipase (73-393) U/L Urine Color Urine Appearance (Clear) Urine pH (4.5-7.5) Ur Specific [place] (1.000-1.030) Urine Protein (Negative) Urine Glucose (UA) (Negative) Urine Ketones (Negative) Urine Blood (Negative) Urine Nitrite (Negative) Urine Bilirubin (Negative) Urine Urobilinogen (Negative) Ur Leukocyte Esterase (Negative) Urine WBC (Auto) (0-5) /hpf Urine RBC (Auto) (0-4) /hpf U Hyaline Cast (Auto) (0-5) /lpf U Epithel Cells (Auto) (0-5) /lpf Urine Bacteria (Auto) (Negative) COVID-19 Eval Order Covid19 at [facility] SARS-CoV-2 (PCR) NEGATIVE (Negative) Administered Medications Heparin Sodium (Porcine) (Heparin Sod 5,000 Unit/0.5 Ml Vial) 5,000 units SQ Q12 [facility] Stop: 04/20/21 09:13 Last Admin: 03/21/21 21:31 Dose: 5,000 units Documented by: [id number] Admin: 03/21/21 10:14 Dose: 5,000 units Documented by: [id number] Sodium Chloride (Nss 1000ml) 1,000 mls @ 100 mls/hr IV .Q10H [facility] Stop: 04/20/21 09:13 Last Admin: 03/22/21 05:21 Dose: 100 mls/hr Documented by: [id number] Infusion: 03/22/21 05:21 Dose: 100 mls/hr Documented by: [id number] Admin: 03/21/21 19:26 Dose: 100 mls/hr Documented by: [id number] Infusion: 03/21/21 19:26 Dose: 100 mls/hr Documented by: [id number] Infusion: 03/21/21 10:36 Dose: 100 mls/hr Documented by: [id number] Infusion: 03/21/21 10:06 Dose: 0 mls/hr Documented by: [id number] Admin: 03/21/21 09:15 Dose: 100 mls/hr Documented by: [id number] Piperacillin Sod/Tazobactam (Sod 3.375 gm/ Dextrose) 115 mls @ 28.75 mls/hr IV Q8H [facility]; Protocol Stop: 03/31/21 13:59 Last Infusion: 03/22/21 01:32 Dose: 0 mls/hr Documented by: [id number] Admin: 03/21/21 21:31 Dose: 28.8 mls/hr Documented by: [id number] Infusion: 03/21/21 17:59 Dose: 0 mls/hr Documented by: [id number] Admin: 03/21/21 14:01 Dose: 28.8 mls/hr Documented by: [id number] Discontinued Medications Fentanyl Citrate (Fentanyl Citrate 100 Mcg/2 Ml Vial) 25 mcg IV NOW STA Stop: 03/21/21 05:27 Last Admin: 03/21/21 05:55 Dose: 25 mcg Documented by: [id number] Sodium Chloride (Nss 1000ml) 500 mls @ 999 mls/hr IV .Q31M ONE Stop: 03/21/21 05:56 Last Infusion: 03/21/21 06:30 Dose: 0 mls/hr Documented by: [id number] Admin: 03/21/21 06:00 Dose: 999 mls/hr Documented by: [id number] Ceftriaxone Sodium (Rocephin) 1,000 mg in 50 mls @ 100 mls/hr IV NOW STA Stop: 03/21/21 08:03 Last Infusion: 03/21/21 08:32 Dose: 0 mls/hr Documented by: [id number] Admin: 03/21/21 07:54 Dose: 100 mls/hr Documented by: [id number] Piperacillin Sod/Tazobactam (Sod 3.375 gm/ Dextrose) 115 mls @ 230 mls/hr IV NOW ONE; Protocol Stop: 03/21/21 09:59 Last Infusion: 03/21/21 10:36 Dose: 0 mls/hr Documented by: [id number] Admin: 03/21/21 10:06 Dose: 230 mls/hr Documented by: [id number] Ondansetron HCl (Ondansetron Inj 2 Mg/Ml 2 Ml Vial) 4 mg IV NOW STA Stop: 03/21/21 05:27 Last Admin: 03/21/21 05:55 Dose: 4 mg Documented by: [id number] Imaging Data Radiologist's Impression: Abdomen/Pelvis CT 03/21/21 05:26 CT OF THE ABDOMEN AND PELVIS WITHOUT CONTRAST CLINICAL HISTORY: diffuse abdominal pain, vomiting, ho SBO COMPARISON STUDY: CT of the abdomen and pelvis August 05, 2019. TECHNIQUE: Axial images of the abdomen and pelvis were obtained without IV contrast. Images were reviewed in the axial, sagittal, and coronal planes. Automated exposure control was utilized for the study. A dose lowering technique was utilized adhering to the principles of ALARA. FINDINGS: Mild right middle lobe and lingular opacities are likely chronic. These are unchanged. No pneumatosis, free air or portal venous gas is present. Slight dilatation of the common bile duct is unchanged and likely related to cholecystectomy. Unenhanced images of liver, spleen, adrenal glands and pancreas are unremarkable. There is no hydronephrosis there is a probable cyst within lower pole the left kidney which is unchanged. This is suboptimally assessed on this unenhanced exam. There is a smaller lesion within the midpole the right kidney which is suboptimally assessed on this unenhanced exam but is unchanged. A small amount of ascites is noted. Mesenteric infiltration. Multiple loops of mildly dilated small bowel measure up to 3.6 cm in caliber. A well-defined transition point is not identified however the findings favor a partial small bowel obstruction. Minimal anterior subcutaneous infiltration within the pelvis is unchanged. There is no acute fracture or suspicious lesion within visualized skeletal structures. IMPRESSION: Findings suggestive of a partial small bowel obstruction. Small amount of ascites and mesenteric infiltration. Findings discussed with Dr. Dante topete at time of dictation. ACT 112: Negative or not required by law. Electronically signed by: Ernesto Cobb M.D. 03/21/2021 6:59 AM Discharge Plan Visit Data Chief Complaint: Abdominal Pain Stated Complaint: ABDOMINAL PAIN, FEELING SICK-NAUSEA ED Provider: Alejo Leon Discharge Problem: Small bowel obstruction Patient Disposition: Admitted As Inpatient Discharge Instructions Interventions: ED Discharge Assessment Last Done: 03/21/21 08:58
[2021-03-21 05:57] LABS: Appearance Urine Clear (Clear); Bacteria Urine Automated 3+ (Negative); Basophils # (auto) 0.02 K/uL (0-0.2); Basophils % (auto) 0.2 %; Bilirubin Urine Negative (Negative); Blood Urine Negative (Negative); Color Urine Yellow; Eosinophils # (auto) 0.17 K/uL (0-0.5); Eosinophils % (auto) 1.7 %; Glucose Urine UA Negative (Negative); Hematocrit (blood only) 36.3 % (37-47); Hemoglobin 11.6 g/dL (12.0-16.0); Immature Granulocytes # (auto) 0.03 K/uL (0.00-0.02); Immature Granulocytes % (auto) 0.3 %; Ketones Urine Trace (Negative); Leukocyte Esterase Urine 2+ (Negative); Lymphocytes # (auto) 1.14 K/uL (1.2-3.4); Lymphocytes % (auto) 11.7 %; Mean Corpuscular Hemoglobin 30.3 pg (25-34); Mean Corpuscular Volume 94.8 fL (80-100); Mean Platelet Volume 10.9 fL (7.4-10.4); Monocytes # (auto) 0.95 K/uL (0.11-0.59); Monocytes % (auto) 9.8 %; Neutrophils # (auto) 7.41 K/uL (1.4-6.5); Neutrophils % (auto) 76.3 %; Nitrite Urine Positive (Negative); Platelet Count 261 K/uL (130-400); Protein Urine Negative (Negative); RBC Urine Automated 0-4 /hpf (0-4); RDW Coefficient of Variation 14.6 % (11.5-14.5); RDW Standard Deviation 50.5 fL (36.4-46.3); Red Blood Count 3.83 M/uL (4.2-5.4); Specific Gravity Urine 1.015 (1.000-1.030); Urobilinogen Urine Negative (Negative); WBC Urine Automated >30 /hpf (0-5); White Blood Count 9.72 K/uL (4.8-10.8)
[2021-03-21 06:41] LABS: Albumin Level 2.9 gm/dl (3.4-5.0); BUN Creatinine Ratio 19.2 (10-20); Bilirubin Direct 0.1 mg/dl (0-0.2); Calcium 9.4 mg/dl (8.5-10.1); Creatinine Clr Calc Pharmacy 25.7 ml/min; Est GFR (African American) 48.9 ml/min; Est GFR (Non-African American) 42.2 ml/min; Potassium 3.7 mmol/L (3.5-5.1)
[2021-03-21 06:43] LABS: Bilirubin,Total 0.6 mg/dl (0.2-1); Total Protein 6.2 gm/dl (6.4-8.2)
--- NOTE | 2021-03-21 07:00 | CT Scan Report ---
CT OF THE ABDOMEN AND PELVIS WITHOUT CONTRAST CLINICAL HISTORY: diffuse abdominal pain, vomiting, ho SBO COMPARISON STUDY: CT of the abdomen and pelvis August 05, 2019. TECHNIQUE: Axial images of the abdomen and pelvis were obtained without IV contrast. Images were revi ewed in the axial, sagittal, and coronal planes. Automated exposure control was utilized for the rayna dy. A dose lowering technique was utilized adhering to the principles of ALARA. FINDINGS: Mild right middle lobe and lingular opacities are likely chronic. These are unchanged. No p neumatosis, free air or portal venous gas is present. Slight dilatation of the common bile duct is un changed and likely related to cholecystectomy. Unenhanced images of liver, spleen, adrenal glands and pancreas are unremarkable. There is no hydronephrosis there is a probable cyst within lower pole the left kidney which is unchanged. This is suboptimally assessed on this unenhanced exam. There is a sm aller lesion within the midpole the right kidney which is suboptimally assessed on this unenhanced ex am but is unchanged. A small amount of ascites is noted. Mesenteric infiltration. Multiple loops of m ildly dilated small bowel measure up to 3.6 cm in caliber. A well-defined transition point is not nancy ntified however the findings favor a partial small bowel obstruction. Minimal anterior subcutaneous i nfiltration within the pelvis is unchanged. There is no acute fracture or suspicious lesion within vi sualized skeletal structures. IMPRESSION: Findings suggestive of a partial small bowel obstruction. Small amount of ascites and me senteric infiltration. Findings discussed with Dr. Leon at time of dictation. ACT 112: Negative or not required by law. Electronically signed by: Ernesto Cobb M.D. 03/21/2021 6:59 AM
[2021-03-21] MEDS ORDERED: cefTRIAXone SODIUM 1,000 MG/50 ML BAG IV STA (07:34)
--- NOTE | 2021-03-21 07:48 | History & Physical Report ---
Date of Service March 21, 2021 Assessment & Plan (1) Small bowel obstruction: Plan: Patient with small bowel obstruction previous abdominal surgeries patient have a n.p.o. status IV fluids general surgery consult NG tube not placed. All oral medications are held (2) Benign essential hypertension: Plan: Card is hydrochlorothiazide is held hydralazine to be used as needed for blood pressure control (3) DVT prophylaxis: Plan: Heparin abuse for DVT prevention History of Present Illness Primary Care Provider: Mikel Sanford MD 85 yr old female with extensive PMH who has previous hysterectomy/cholecystectomy with several episodes of SBO over the years. Arrives with worsening abdominal pain over the last 2 days with vomiting. Given small dose fentanyl with rapid improvement in pain decreased oral intake also over that time span.. Urine is abnormal, started on antibiotics.. Sent to CT and findings of partial/early SBO noted. She is still feeling OK and is agreeable to monitoring in hospital. No gastric distension and no NGT placed, patient had flatus and liquid bowel movement earlier in her hospital stay Allergies Allergy/AdvReac Type Severity Reaction Status Date / Time Cipro Allergy Unknown UNKNOWN Unverified 12/02/16 17:39 ciprofloxacin Allergy Unknown UNKNOWN Verified 03/21/21 07:37 allopurinol AdvReac Unknown bladder Verified 03/21/21 07:37 infection lisinopril AdvReac Unknown COUGH Verified 03/21/21 07:37 Home Medications Medication Instructions Recorded Confirmed Type cyanocobalamin (vitamin B-12) 1,000 mcg PO Q48H tab 05/23/19 03/21/21 History 1,000 mcg tablet potassium chloride 10 mEq 10 meq PO BID #180 cap 11/08/20 03/21/21 Rx capsule,extended release clobetasol 0.05 % topical ointment 1 applic TOPICAL DAILY #15 g 11/28/20 03/21/21 Rx vit C 250 mg-vit E 200 unit-zinc 1 tab PO BID 11/28/20 03/21/21 History 12.5 mg-copper 1 mm-cox-mrphsu tablet (ICaps AREDS2 (copper citrate)) cholecalciferol (vitamin D3) 50 2,000 units PO QAM 03/15/21 03/21/21 History mcg (2,000 unit) tablet dicyclomine 10 mg capsule 10 mg PO BID 03/15/21 03/21/21 History loperamide 2 mg capsule 2 mg PO DAILY PRN 03/15/21 03/21/21 History telmisartan 40 1 tab PO QAM 03/15/21 03/21/21 History mg-hydrochlorothiazide 12.5 mg tablet (Micardis HCT) Past Med/Surg History Medical History BCC (basal cell carcinoma) Excised per PCP records (left ankle) Breast cancer, left (~02/2021) Recently dx'ed Chronic diarrhea Dizziness with leg weakness. following with PCP currently. Gout hx Hx of blood clots (~2011) Hx of DVT to left leg= r/t immobility after an injury to foot. No blood thinners currently per md direction. 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 states she had testing done that was negative. Weight loss, unintentional Surgical History H/O melanoma excision H/O nephrolithotomy with removal of calculi History of breast biopsy History of colonoscopy History of esophagogastroduodenoscopy (EGD) Hx of cholecystectomy Hx of tonsillectomy 194 S/P SARIKA-BSO Family History Other No family history of adverse response to anesthesia No pertinent family history Social History Smoking Status: Never smoker Second Hand Exposure: No; Do You Dip or Chew Tobacco: No; Hx Alcohol Use: No Hx Substance Use: No Preferred Language: Gren[place] Communication Ability: Effective Visual Impairment: No Limitations Hearing Ability: Hard of Hearing Business Support Required: No Beliefs That Will Affect Care: None marital status: Current Living Situation: Spouse current occupational status: retired Other Information That Helps Us Care for You: No Feels Safe at Home: Yes Safety Concerns: Feels Safe At This Time Childhood Exposure to Second-Hand Smoke: No caffeine: No Dental Care, Regularly: Yes Physical Activity Frequency: Other Physical Activity Frequency Comment: House work Seatbelt Use: never Sunscreen Use: No Assistive Devices: Glasses Review of Systems Review of Systems: Mild distress and fatigue no headache, no visual changes no speech or swallowing issues no chest pain, pressure or palpitations no shortness of breath, cough or wheezes no abdominal pain, mild nausea without vomiting, decreased stool production some distention and bloating no dysuria, hematuria or frequency no focal joint pain or swelling no back pain, CVA tenderness or radicular pain no bruising, bleeding or rashes no focal signs of weakness or numbness or altered sensation no complaints of anxiety or depression.. Physical Exam Physical Exam: The patient appeared well nourished and normally developed. Vital signs as documented. Head exam is normocephalic atraumatic Neck is without JVD, thyromegaly, or carotid bruits. Lungs are clear to auscultation, no focal loss of breath sounds Cardiac exam, Rhythm is regular.. No murmurs, rubs or gallops. Abdominal exam reveals distention hypoactive bowel sounds and tympany minor tenderness to examination Extremities are nonedematous and both pedal pulses are present Neurologic exam is alert and oriented, no focal loss of strength or sensation Skin is without bruises or rashes Psychologically is without concerns for anxiety or depression Results & Data Results & Data ([facility]) Vital Signs (Past 12 Hours) Vital Signs Temp Pulse Pulse Resp BP BP Pulse Ox 03/21/21 06:02 66 18 137/76 95 03/21/21 05:18 97.9 F 81 20 134/71 94 Code Status & VTE Plan VTE Prophylaxis Plan VTE Prophylaxis will be ordered: Yes PG Care Time/CCT Total # of Minutes Spent Total Time Spent with Patient: Total time spent is greater than 50% in coordination of care (as documented) at patient's floor/unit and/or counseling patient: Coding Level of Care Code 11141 Initial Inpt Care Lvl 2 Diagnoses Small bowel obstruction K56.609 Benign essential hypertension I10 DVT prophylaxis Z29.9
[2021-03-21] MEDS ORDERED: PIPERACILL/TAZOBAC CONSULT ACTIVE PRN (09:14)
[2021-03-21] MEDS ORDERED: MoRPHine SULFATE 2 MG/ML CARP IV PRN (09:14)
[2021-03-21] MEDS ORDERED: MoRPHine SULFATE 4 MG/ML 1 ML CARP\\VIAL IV PRN (09:14)
[2021-03-21] MEDS ORDERED: hydrALAZINE HCL 20 MG/ML VIAL IV PRN (09:14)
[2021-03-21] MEDS ORDERED: ONDANSETRON INJ 2 MG/ML 2 ML VIAL IV PRN (09:14)
[2021-03-21] MEDS ORDERED: ACETAMINOPHEN 1000 MG/100 ML IV IV PRN (09:14)
[2021-03-21] MEDS: SODIUM CHLORIDE 0.9% 1000ML 1,000 ML IV SCH ×2 (09:15→19:26)
[2021-03-21] MEDS ORDERED: PIPERACILLIN/TAZOBACTAM 3.375 GM in DEXTROSE 5% 100 ML IV ONE (09:30)
[2021-03-21] MEDS: HEPARIN SOD 5,000 UNIT/0.5 ML VIAL SQ SCH ×2 (10:14→21:31)
--- NOTE | 2021-03-21 11:53 | Surgery Consultation ---
Date of Consultation March 21, 2021 Assessment & Plan (1) SBO (small bowel obstruction): This is an 85yF with a PMH of ovarian cancer, melanoma, L breast ca, HTN who presents to the [facility] ED on 03/21/21 with complaints of abdominal pain/nausea/vomiting since Friday. Patient reported to the ER today for further evaluation. She underwent a CT a/p that revealed findings consistent of a partial small bowel obstruction. She has a history of SBO in the past, both managed conservatively, last episode a couple years ago. Past surgical history includes open cholecystectomy and SARIKA-BSO. On examination patient's abdomen is softly distended. She has some discomfort to palpation across the upper/mid abdomen. Her WBC 9.7, Cr: 1.1. Vital signs are stable. We agree with a trial of conservative measures including bowel rest-- NPO with IVF. No need for NGT at this time given patient is not currently nauseated and last bout of emesis was Friday. We will await return of bowel function. No plans for acute surgical intervention at this time. History of Present Illness Attending Physician: Parish Jensen MD History of Present Illness This is an 85yF with a PMH of ovarian cancer, melanoma, L breast ca, HTN who presents to the [facility] ED on 03/21/21 with complaints of abdominal pain/nausea/vomiting. Patient reports her symptoms started this past Friday she developed abdominal pain across her mid/upper abdomen and ended up vomiting. She states the only thing she remembers having was some tea and toast. On Friday she woke up feeling mildly better, but after eating a dinner of pork chops/mashed potatoes/peas her abdominal pain returned. As her symptoms progressed she came into the ER for further evaluation. In the ER patient underwent a CT a/p that revealed findings suggestive of a partial small bowel obstruction. Patient reports a history of 2 prior small bowel obstructions, last one being a couple years ago. Both SBO's she reports were managed conservatively. Her past abdominal surgical history includes an open cholecystectomy and SARIKA-BSO. She states her last BM was on Friday, which was loose, but she has a history of chronic diarrhea. She says since admission she has felt some improvement in her symptoms. Allergies Allergy/AdvReac Type Severity Reaction Status Date / Time Cipro Allergy Unknown UNKNOWN Unverified 12/02/16 17:39 ciprofloxacin Allergy Unknown UNKNOWN Verified 03/21/21 07:37 allopurinol AdvReac Unknown bladder Verified 03/21/21 07:37 infection lisinopril AdvReac Unknown COUGH Verified 03/21/21 07:37 Home Medications Medication Instructions Recorded Confirmed Type cyanocobalamin (vitamin B-12) 1,000 mcg PO Q48H tab 05/23/19 03/21/21 History 1,000 mcg tablet potassium chloride 10 mEq 10 meq PO BID #180 cap 11/08/20 03/21/21 Rx capsule,extended release clobetasol 0.05 % topical ointment 1 applic TOPICAL DAILY #15 g 11/28/20 03/21/21 Rx vit C 250 mg-vit E 200 unit-zinc 1 tab PO BID 11/28/20 03/21/21 History 12.5 mg-copper 1 hr-cgy-vqzsze tablet (ICaps AREDS2 (copper citrate)) cholecalciferol (vitamin D3) 50 2,000 units PO QAM 03/15/21 03/21/21 History mcg (2,000 unit) tablet dicyclomine 10 mg capsule 10 mg PO BID 03/15/21 03/21/21 History loperamide 2 mg capsule 2 mg PO DAILY PRN 03/15/21 03/21/21 History telmisartan 40 1 tab PO QAM 03/15/21 03/21/21 History mg-hydrochlorothiazide 12.5 mg tablet (Micardis HCT) Patient History Medical History BCC (basal cell carcinoma) Excised per PCP records (left ankle) Breast cancer, left (~02/2021) Recently dx'ed Chronic diarrhea Dizziness with leg weakness. following with PCP currently. Gout hx Hx of blood clots (~2011) Hx of DVT to left leg= r/t immobility after an injury to foot. No blood thinners currently per md direction. 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 states she had testing done that was negative. Weight loss, unintentional Surgical History H/O melanoma excision H/O nephrolithotomy with removal of calculi History of breast biopsy History of colonoscopy History of esophagogastroduodenoscopy (EGD) Hx of cholecystectomy Hx of tonsillectomy 1949 S/P SARIKA-BSO Family History Other No family history of adverse response to anesthesia No pertinent family history Social History Smoking Status: Never smoker Second Hand Exposure: No; Do You Dip or Chew Tobacco: No; Hx Alcohol Use: No Hx Substance Use: No Preferred Language: German Communication Ability: Effective Visual Impairment: No Limitations Hearing Ability: Hard of Hearing Surgical Device Sales Representative Required: No Beliefs That Will Affect Care: None marital status: Current Living Situation: Spouse current occupational status: retired Other Information That Helps Us Care for You: No Feels Safe at Home: Yes Safety Concerns: Feels Safe At This Time Childhood Exposure to Second-Hand Smoke: No caffeine: No Dental Care, Regularly: Yes Physical Activity Frequency: Other Physical Activity Frequency Comment: House work Seatbelt Use: never Sunscreen Use: No Assistive Devices: Glasses Review of Systems Constitutional: no fever and no chills Respiratory: no dyspnea Cardiovascular: no chest pain Gastrointestinal: + abdominal pain, + bloating, + nausea and + vomiting Physical Exam Physical Exam: awake/alert Constitutional: well developed and well nourished; no acute distress Respiratory: normal respiratory effort Cardiovascular: Rate/Rhythm: regular rate Gastrointestinal (Abdomen): Inspection/Auscultation: + abdomen distended and + abdominal surgical scar (midline infraumbilical and scar from open sylvia) Percussion/Palpation: + abdomen tender (discomfort to palpation across upper and mid abdomen) and abdomen soft Results & Data ([facility]) Vital Signs (Past 12 Hours) Vital Signs Temp Pulse Pulse Resp BP BP Pulse Ox 03/21/21 08:44 65 20 116/94 97 03/21/21 08:00 66 18 137/76 95 03/21/21 06:02 66 18 137/76 95 03/21/21 05:18 36.6 C 81 20 134/[address] OF THE ABDOMEN AND PELVIS WITHOUT CONTRAST CLINICAL HISTORY: diffuse abdominal pain, vomiting, ho SBO COMPARISON STUDY: CT of the abdomen and pelvis August 05, 2019. TECHNIQUE: Axial images of the abdomen and pelvis were obtained without IV contrast. Images were reviewed in the axial, sagittal, and coronal planes. Automated exposure control was utilized for the study. A dose lowering technique was utilized adhering to the principles of ALARA. FINDINGS: Mild right middle lobe and lingular opacities are likely chronic. These are unchanged. No pneumatosis, free air or portal venous gas is present. Slight dilatation of the common bile duct is unchanged and likely related to cholecystectomy. Unenhanced images of liver, spleen, adrenal glands and pancreas are unremarkable. There is no hydronephrosis there is a probable cyst within lower pole the left kidney which is unchanged. This is suboptimally assessed on this unenhanced exam. There is a smaller lesion within the midpole the right kidney which is suboptimally assessed on this unenhanced exam but is unchanged. A small amount of ascites is noted. Mesenteric infiltration. Multiple loops of mildly dilated small bowel measure up to 3.6 cm in caliber. A well-defined transition point is not identified however the findings favor a partial small bowel obstruction. Minimal anterior subcutaneous infiltration within the pelvis is unchanged. There is no acute fracture or suspicious lesion within visualized skeletal structures. IMPRESSION: Findings suggestive of a partial small bowel obstruction. Small amount of ascites and mesenteric infiltration. Findings discussed with Dr. Leon at time of dictation. ACT 112: Negative or not required by law. Electronically signed by: Ernesto Cobb M.D. 03/21/2021 6:59 AM PG Care Time/CCT Total # of Minutes Spent Total Time Spent with Patient: Total time spent is greater than 50% in coordination of care (as documented) at patient's floor/unit and/or counseling patient: Coding Level of Care Code 77904 Initial Inpt Care Lvl 1 Diagnoses SBO (small bowel obstruction) K56.609
[2021-03-21] MEDS: PIPERACILLIN/TAZOBACTAM 3.375 GM in DEXTROSE 5% 100 ML IV SCH ×2 (14:01→21:31)
[2021-03-22] MEDS: SODIUM CHLORIDE 0.9% 1000ML 1,000 ML IV SCH ×2 (05:21→20:26)
[2021-03-22] MEDS: PIPERACILLIN/TAZOBACTAM 3.375 GM in DEXTROSE 5% 100 ML IV SCH ×3 (05:57→21:47)
[2021-03-22 07:15] LABS: BUN Creatinine Ratio 13.9 (10-20); Calcium 8.5 mg/dl (8.5-10.1); Creatinine Clr Calc Pharmacy 28.6 ml/min; Est GFR (African American) 55.6 ml/min; Magnesium 1.3 mg/dl (1.8-2.4); Potassium 3.4 mmol/L (3.5-5.1)
--- NOTE | 2021-03-22 08:49 | Surgery Progress Note ---
Date of Service March 22, 2021 Assessment & Plan (1) SBO (small bowel obstruction): Plan: Patient clinically feeling well Denies abdominal pain/n/v Abdomen is soft, non tender Is passing flatus and has had multiple BMs Will trial advancing diet to clears this AM Admission and Anticipated Discharge Date Admission Date: March 21, 2021 Subjective Patient feels well this AM. Overall improved since admission. Denies abdominal pain/nausea/vomiting. Said she had 2 BM's yesterday and a small one this AM. She says she is passing flatus. Physical Exam Physical Exam: awake/alert Gastrointestinal (Abdomen): Inspection/Auscultation: + abdomen distended (improved from yesterday) Percussion/Palpation: abdomen soft; abdomen nontender Results & Data ([facility]) Vital Signs (Past 12 Hours) Vital Signs Temp Pulse Resp BP Pulse Ox 03/22/21 07:14 36.6 C 62 14 94/59 L 93 03/21/21 23:40 36.6 C 64 14 90/57 L 91 PG Care Time/CCT Total # of Minutes Spent Total Time Spent with Patient: Total time spent is greater than 50% in coordination of care (as documented) at patient's floor/unit and/or counseling patient: Coding Level of Care Code 16352 Subseq Hosp Care Lvl 1 Diagnoses SBO (small bowel obstruction) K56.609
[2021-03-22] MEDS: MAGNESIUM SULFATE / D5W 1 GM/100 ML BAG IV SCH ×3 (09:18→15:00)
[2021-03-22] MEDS: HEPARIN SOD 5,000 UNIT/0.5 ML VIAL SQ SCH ×2 (09:19→20:23)
[2021-03-22] MEDS: POTASSIUM CHLORIDE CRTAB 20 MEQ TABCR PO SCH ×2 (09:20→20:23)
[2021-03-22] MEDS ORDERED: ACETAMINOPHEN 500 MG TAB PO PRN (10:19)
--- NOTE | 2021-03-22 19:06 | Hospitalist Progress Note ---
Date of Service March 22, 2021 Assessment & Plan (1) Small bowel obstruction: Plan: Patient with small bowel obstruction previous abdominal surgeries patient have a n.p.o. status IV fluids general surgery consult following, is seemingly resolving , advance diet hopefully early discharge (2) Benign essential hypertension: Plan: temlisartan/ hydrochlorothiazide is held hydralazine to be used as needed for blood pressure control (3) DVT prophylaxis: Plan: Heparin abuse for DVT prevention Admission and Anticipated Discharge Date Admission Date: March 21, 2021 Subjective Pt feels improved Said she had 2 BM's yesterday and a small one this AM. She says she is passing flatus. Review of Systems Review of Systems: Mild distress and fatigue no headache, no visual changes no speech or swallowing issues no chest pain, pressure or palpitations no shortness of breath, cough or wheezes no abdominal pain, did have some loose stools no dysuria, hematuria or frequency no focal joint pain or swelling no back pain, CVA tenderness or radicular pain no bruising, bleeding or rashes no focal signs of weakness or numbness or altered sensation no complaints of anxiety or depression.. Physical Exam Physical Exam: The patient appeared well nourished and normally developed. Vital signs as documented. Head exam is normocephalic atraumatic Neck is without JVD, thyromegaly, or carotid bruits. Lungs are clear to auscultation, no focal loss of breath sounds Cardiac exam, Rhythm is regular.. No murmurs, rubs or gallops. Abdominal exam soft and non tender Extremities are nonedematous and both pedal pulses are present Neurologic exam is alert and oriented, no focal loss of strength or sensation Skin is without bruises or rashes Psychologically is without concerns for anxiety or depression Results & Data Results & Data ([facility]) Vital Signs (Past 12 Hours) Vital Signs Temp Pulse Resp BP Pulse Ox 03/22/21 15:30 97.7 F 63 16 119/65 94 03/22/21 07:14 97.9 F 62 14 94/59 L 93 PG Care Time/CCT Total # of Minutes Spent Total Time Spent with Patient: Total time spent is greater than 50% in coordination of care (as documented) at patient's floor/unit and/or counseling patient: Coding Level of Care Code 12400 Subseq Hosp Care Lvl 2 Diagnoses Small bowel obstruction K56.609 Benign essential hypertension I10 DVT prophylaxis Z29.9
[2021-03-23] MEDS: SODIUM CHLORIDE 0.9% 1000ML 1,000 ML IV SCH (05:46)
[2021-03-23] MEDS: PIPERACILLIN/TAZOBACTAM 3.375 GM in DEXTROSE 5% 100 ML IV SCH (06:25)
[2021-03-23 08:01] LABS: Hematocrit (blood only) 31.7 % (37-47); Hemoglobin 10.1 g/dL (12.0-16.0); Mean Corpuscular Hemoglobin 30.4 pg (25-34); Mean Corpuscular Hgb Conc 31.9 g/dL (32-36); Mean Corpuscular Volume 95.5 fL (80-100); Mean Platelet Volume 10.8 fL (7.4-10.4); Platelet Count 215 K/uL (130-400); RDW Coefficient of Variation 14.7 % (11.5-14.5); RDW Standard Deviation 51.2 fL (36.4-46.3); Red Blood Count 3.32 M/uL (4.2-5.4); White Blood Count 4.67 K/uL (4.8-10.8)
[2021-03-23 08:34] LABS: BUN Creatinine Ratio 8.5 (10-20); Calcium 8.6 mg/dl (8.5-10.1); Creatinine Clr Calc Pharmacy 27.8 ml/min; Est GFR (African American) 53.8 ml/min; Est GFR (Non-African American) 46.4 ml/min; Magnesium 2.1 mg/dl (1.8-2.4); Potassium 3.5 mmol/L (3.5-5.1)
[2021-03-23] MEDS: HEPARIN SOD 5,000 UNIT/0.5 ML VIAL SQ SCH (08:37)
[2021-03-23] MEDS: POTASSIUM CHLORIDE CRTAB 20 MEQ TABCR PO SCH (08:38)
--- NOTE | 2021-03-23 08:45 | Surgery Progress Note ---
Date of Service March 23, 2021 Assessment & Plan (1) Small bowel obstruction: Plan: resolving, tolerating diet ok for d/c today Admission and Anticipated Discharge Date Admission Date: March 21, 2021 Subjective no complaints, tolerating minced diet Physical Exam Gastrointestinal (Abdomen): Inspection/Auscultation: abdomen not distended Percussion/Palpation: abdomen soft; abdomen nontender Results & Data ([facility]) Vital Signs (Past 12 Hours) Vital Signs Temp Pulse Resp BP Pulse Ox 03/23/21 07:00 36.4 C L 63 20 115/69 97 03/23/21 00:02 36.4 C L 65 16 98/63 L 94 PG Care Time/CCT Total # of Minutes Spent Total Time Spent with Patient: Total time spent is greater than 50% in coordination of care (as documented) at patient's floor/unit and/or counseling patient: Coding Level of Care Code 36875 Subseq Hosp Care Lvl 1 Diagnoses Small bowel obstruction K56.609
--- NOTE | 2021-03-23 21:11 | Discharge Summary ---
Date of Service March 23, 2021 Admission HPI Per Admitting Provider 85 yr old female with extensive PMH who has previous hysterectomy/cholecystectomy with several episodes of SBO over the years. Arrives with worsening abdominal pain over the last 2 days with vomiting. Given small dose fentanyl with rapid improvement in pain decreased oral intake also over that time span.. Urine is abnormal, started on antibiotics.. Sent to CT and findings of partial/early SBO noted. She is still feeling OK and is agreeable to monitoring in hospital. No gastric distension and no NGT placed, patient had flatus and liquid bowel movement earlier in her hospital stay Principal Diagnosis SBO Discharge Exam Constitutional WD/WN, vitals as above Eyes EOM intact bilaterally; no conjunctival abnormality ENMT external ear and nose normal, oropharynx normal Neck trachea midline, no thyromegaly normal visual inspection Respiratory normal respiratory effort, lungs clear to auscultation no respiratory distress Cardiovascular RRR, no murmur, no edema Gastrointestinal (Abdomen) Inspection/Auscultation: abdomen normal to inspection; abdomen not distended Musculoskeletal no cyanosis or clubbing, extremities motor strength 5/5 Skin no rashes, warm and dry Neurologic moves all extremities and awake Psychiatric Orientation: alert, oriented to person and cooperative Discharge Data Allergies Allergy/AdvReac Type Severity Reaction Status Date / Time Cipro Allergy Unknown UNKNOWN Unverified 12/02/16 17:39 ciprofloxacin Allergy Unknown UNKNOWN Verified 03/21/21 07:37 allopurinol AdvReac Unknown bladder Verified 03/21/21 07:37 infection lisinopril AdvReac Unknown COUGH Verified 03/21/21 07:37 Consultations 03/21/21 07:02 ED Decision to Admit Stat 03/21/21 09:14 Consult General Surgery Routine Ordered Studies 03/21/21 05:26 CT abd pelvis wo con Stat Hospital Course (1) Small bowel obstruction: Patient with small bowel obstruction due to previous abdominal surgeries. - She did well with conservative management. Had BMs and tolerated diet well. Discharged home with recommendation to slowly reintroduce normal food to her diet. (2) Benign essential hypertension: No change on discharge to home meds. (3) DVT prophylaxis: Heparin for DVT prevention Total Time Total Time Spent Total Time Spent (In Minutes): 35 Discharge Plan Discharge Items Patient Disposition: Home - Self-Care Reason For Visit: ABDOMINAL PAIN, FEELING SICK-NAUSEA Discharge Diagnosis: Small bowel obstruction Activity: Resume your previous activity Non-emergency contact: Primary Care Provider Call non-emergency contact if: your symptoms worsen and your pain is worsening Follow-up/Referrals: Mikel Sanford MD [Primary Care Provider] - 03/27/21 9:30 am (You will be seeing Pavithra Hamilton PA-C) Diet: Regular Addtl Attending Provider Instructions: Ms. Granger, You were admitted to the hospital with something called a small bowel obstruction. This can happen when you get a kink in your small intestine. Most commonly, this is caused by adhesions which can form when you've had prior abdominal surgeries. Luckily, the obstruction resolved with conservative care (meaning fluids through the IV and not eating for a few days). Unfortunately, this can come back and does about 30% of the time over the next 2 years. For now, please slowly restart your usual food items. Start with softer things like mashed potatoes and ice cream. You can gradually re-introduce your usual foods over the next few days. Please see your PCP in a week or two to be sure you are doing well. Pending Studies at Discharge: No Stand-Alone Forms: My [facility], Smoking Cessation Medications and DC Order Prescriptions: Continued potassium chloride 10 mEq capsule, extended release 10 meq PO BID Qty: 180 RF: 3 cyanocobalamin (vitamin B-12) 1,000 mcg tablet 1,000 mcg PO Q48H RF: 0 ICaps AREDS2 (copper citrate) 250 mg-200 unit -12.5 mg-1 mg tablet 1 tab PO BID RF: 0 clobetasol 0.05 % ointment 1 applic topical DAILY Qty: 15 RF: 5 loperamide 2 mg Capsule 2 mg PO DAILY PRN (Reason: Diarrhea) RF: 0 Micardis HCT 40-12.5 mg tablet 1 tab PO QAM RF: 0 dicyclomine 10 mg capsule 10 mg PO BID RF: 0 cholecalciferol (vitamin D3) 2,000 unit tablet 2,000 units PO QAM RF: 0 Discharge Orders: Discharge Order (Routine); Ordered 03/23/21 Ordered By: Juan Bright/Other Patient Handouts: Small Bowel Obstruction, Understanding Intestinal Obstruction Admission Data Admit Date/Time: 03/21/21 07:39 Attending Provider: Juan Aaron Admit Provider: Parish Jensen Primary Care Provider: Mikel Sanford Other Providers: Otf Handy ; Juan Aaron Other Interventions: Discharge Summary Assessment (RN) Last Done: 03/23/21 13:48 Coding Level of Care Code D/C DAY MANAGEMENT >30 MINS Diagnoses Small bowel obstruction K56.609 Benign essential hypertension I10 DVT prophylaxis Z29.9
== END 2021-03-23 14:30 | disposition home or self-care (01) ==
LOC: ED 05:15 → INTOOBSV 07:39 → 3E 07:39 → SUATTDRO 07:39 → OBSVTOIN 07:39 → 3E 08:58

== ENCOUNTER 2023-09-07 09:54 | Inpatient (IN) ==
[2023-09-07] MEDS ORDERED: ONDANSETRON INJ 2 MG/ML 2 ML VIAL IV STA (10:09)
[2023-09-07] MEDS ORDERED: SODIUM CHLORIDE 0.9% 500 ML IV STA (10:09)
--- NOTE | 2023-09-07 10:23 | XRay Report ---
SINGLE VIEW CHEST CLINICAL HISTORY: Generalized abdominal pain. Lung cancer. FINDINGS: An AP, portable, upright chest radiograph is compared to study dated 05/20/2022 and correlat ed with chest CT dated 07/03/2023. The heart is enlarged. The pulmonary vasculature is noncongested. C hronic interstitial thickening is similar to previous. Nodular opacities in the lingula are again not ed and similar to previous. There is no airspace consolidation typical for pneumonia or pleural effus ion. Scarring/atelectasis is noted at the lung bases. Additional foci of parenchymal scarring are see n throughout both lungs. No pneumothorax is seen. The skeletal structures are osteopenic. The bony th orax is grossly intact. IMPRESSION: 1. Mild cardiomegaly with no active disease in the chest. 2. Nodular opacities in the lingula are again noted and similar to previous. ACT 112: Negative or not required by law. Electronically signed by: Mikel Hills M.D. 09/07/2023 10:21 AM
[2023-09-07 10:33] LABS: Basophils # (auto) 0.02 K/uL (0.00-0.20); Basophils % (auto) 0.2 %; Eosinophils # (auto) 0.04 K/uL (0.00-0.50); Eosinophils % (auto) 0.4 %; Hematocrit (blood only) 36.1 % (37.0-47.0); Hemoglobin 11.7 g/dl (12.0-16.0); Immature Granulocytes # (auto) 0.04 K/uL (0.01-0.20); Immature Granulocytes % (auto) 0.4 %; Lymphocytes # (auto) 0.89 K/uL (1.20-3.40); Lymphocytes % (auto) 9.3 %; Mean Corpuscular Hemoglobin 29.8 pg (25.0-34.0); Mean Corpuscular Hgb Conc 32.4 g/dL (32.0-36.0); Mean Corpuscular Volume 91.9 fL (80.0-100.0); Mean Platelet Volume 10.8 fL (9.4-12.4); Monocytes # (auto) 0.65 K/uL (0.11-0.59); Monocytes % (auto) 6.8 %; Neutrophils # (auto) 7.96 K/uL (1.40-6.50); Neutrophils % (auto) 82.9 %; Platelet Count 320 K/uL (130-400); RDW Coefficient of Variation 15.3 % (11.5-14.5); RDW Standard Deviation 51.2 fL (36.4-46.3); Red Blood Count 3.93 M/uL (4.20-5.40)
[2023-09-07 10:58] LABS: Appearance Urine Cloudy (Clear); Bacteria Urine Automated 4+ (Negative); Bilirubin Urine Negative (Negative); Blood Urine Negative (Negative); Color Urine Yellow; Glucose Urine UA Negative (Negative); Ketones Urine Trace (Negative); Leukocyte Esterase Urine 2+ (Negative); Nitrite Urine Positive (Negative); Protein Urine Trace (Negative); RBC Urine Automated 0-4 /hpf (0-4); Specific Gravity Urine 1.017 (1.000-1.030); Urobilinogen Urine Negative (Negative); WBC Urine Automated >30 /hpf (0-5)
--- NOTE | 2023-09-07 10:58 | Emergency Department Note ---
Impression & Plan Small bowel obstruction, UTI (urinary tract infection) ED Provider Note CHIEF COMPLAINT: Abdominal pain HISTORY OF PRESENTING ILLNESS: This 88-year-old female patient presents to the emergency department with her and daughter for evaluation of intermittent abdominal pain for the past couple of weeks. Symptoms occurred again last night and were more severe than usual. Had vomiting with her pain last night and again this morning. She has a history of bowel obstructions and is concerned for another bowel obstruction. She had a BM yesterday and has a BM every day per patient. She tends to have loose bowels since her partial colon resection in January 2023 due to her colon cancer per patient. No recent change in her BMs. She did not need any chemo or radiation after her colon cancer per patient. However, she had radiation previously due to ovarian cancer that really affected her bowels per patient. Also has a history of breast cancer and lung cancer as well. She continues to follow up with oncology and has an appointment for further evaluation of a lung nodule that was found recently. She states that the pain is in the same spot that she normally gets pain with her bowel obstructions. Her last colonoscopy was just prior to her surgery where they found the malignancy. Denies any pain currently, but states that the pain comes and goes. The nausea and vomiting are intermittent as well. Denies fevers, cough, or URI symptoms. Denies any chest pain or SOB. She states that she has had urinary frequency for a while. She is not on any blood thinners. REVIEW OF SYSTEMS: See HPI for pertinent positives and pertinent negatives. ALLERGIES: Adhesives, Cipro, lisinopril MEDICATIONS: See below PAST MEDICAL HISTORY: See below PHYSICAL EXAM: VITALS: Vitals are noted on the nurse's note and reviewed by myself. GENERAL: Non toxic, no acute distress, non-diaphoretic. SKIN: No rash to the abdomen. Capillary refill <2 sec. EYES: PERRLA. EOMI. Conjunctivae without injection, sclerae without icterus. NOSE: Patent without discharge. MOUTH: Mucous membranes moist. Uvula midline. Airway patent. NECK: Supple without nuchal rigidity. HEART: Regular rate and rhythm without murmurs gallops or rubs. LUNGS: Clear to auscultation bilaterally without wheezes, rales or rhonchi. No retractions or accessory muscle use. ABDOMEN: Positive bowel sounds x 4. Normal tympanic percussion. Soft, diffusely tender to palpation with maximal tenderness centrally. No masses or organomegaly. [place] sign negative. No CVA tenderness. No guarding or rebound tenderness. No focal RLQ or LLQ tenderness. MUSCULOSKELETAL: No gross musculoskeletal defects. NEURO: Patient was alert and oriented. No focal neurological deficits. DIFFERENTIAL DIAGNOSIS: Differential diagnosis includes hepatitis, pancreatitis, cholecystitis, cholelithiasis, appendicitis, kidney stone, pyelonephritis, UTI, gastritis, gastroenteritis, mesenteric adenitis, obstruction, constipation, hernia, abdominal abscess, perforation, diverticulitis, IBD, ischemic colitis, abdominal aortic aneurysm, , ectopic , ovarian cyst, ovarian torsion, acute salpingitis, or others. ED COURSE AND MEDICAL DECISION MAKING: HISTORY FROM INDEPENDENT HISTORIAN: Additional history was obtained from the patient's daughter and . MONITOR: Continuous monitor tech: Order was placed for continuous monitor tech. Patient was placed on the monitor tech and continuous pulse ox. Patient was noted to be in normal sinus rhythm at an initial rate of 72 bpm per my interpretation. EKG: EKG was interpreted by myself as sinus rhythm at 77 bpm with occasional PVCs, but no acute ST or T wave changes and no acute change from her previous EKGs. MEDICATIONS GIVEN: 500 mL normal saline solution bolus. Zofran 4 mg IV. Tylenol 1000 mg IV. Rocephin 2 g IV. INTERPRETATION OF LABS: I interpreted the labs with full lab results as below in the lab section of this note. White blood cell count normal at 9.60. Hemoglobin stable at 11.7. Platelet count normal at 320. Potassium low at 3.3. BUN and creatinine are relatively stable to slightly higher at 39 and 1.58 respectively. Glucose 110. Calcium 11.2. Alk phos 151. The remainder of the CMP without significant abnormalities. Lipase was normal. High-sensitivity troponin was normal. Urinalysis with positive nitrates, 2+ leukocytes, greater than 30 white blood cells, 10-20 epithelials, and 4+ bacteria concerning for UTI. Urine culture is pending. INTERPRETATION OF IMAGING: Imaging studies were interpreted by myself and read by radiology as per the imaging section of this note. Chest x-ray showed mild cardiomegaly with no active disease in the chest. Nodule opacities in the lingula are again noted and are similar to previous imaging. CT scan of the abdomen pelvis without IV contrast due to the patient's CKD shows a high-grade small bowel obstruction with a possible transition point in the ventral upper pelvis which is likely on the basis of adhesions. There is trace interloop fluid. No intraperitoneal free air is identified and no focally thick walled bowel loops are seen. No pneumatosis intestinalis or portal venous gas. There is postsurgical change from right-sided colon resection with ileocolic anastomosis. Trace pleural effusions. Trace abdominopelvic ascites. CONSULTATIONS: Dr. Her of general surgery. On-call hospitalist. MDM SUMMARY: I examined the patient. An IV lock was placed and labs were drawn. The patient was given 500 mL normal saline solution bolus. She was given Tylenol 1000 mg IV and Zofran 4 mg IV with improvement of her pain and nausea. The patient has not had any vomiting since this morning. The patient has a history of small bowel obstructions with symptoms similar to her previous bowel obstructions per patient. She had a right hemicolectomy in January 2023 secondary to colon cancer per patient. Laboratory studies with stable to slightly increased chronic kidney disease and other stable findings, but no other significant acute abnormalities. Urinalysis is concerning for UTI and she was given Rocephin 2 g IV pending urine culture. Chest x-ray showed no active disease, but did show chronic changes as above. CT scan of the abdomen pelvis without IV contrast showed a high-grade small bowel obstruction with a transition point likely on the basis of adhesions as above. The patient was independently evaluated by Dr. Blas, who agrees with my assessment and treatment plan. I spoke with Dr. Her of general surgery who will consult and follow the patient while admitted. I spoke with the on-call hospitalist, Dr. Simmons, who agreed to admit the patient for further management. Please refer to their dictations for further details. An NG tube was attempted twice, but was unsuccessful and the patient declined any additional attempts at the NG tube per nursing staff. Dr. Simmons was made aware by nursing staff. The patient's care was transferred in stable condition. DIAGNOSIS: High-grade small bowel obstruction UTI Past Med/Surg History Medical History (Updated 09/07/23 @ 15:24 by Mariaelena Mcneil PA-C) Small bowel obstruction x3 (most recent 02/2021- medically managed), related to abdominal adhesions (multiple SBO) Iron deficiency anemia Medicare annual wellness visit, subsequent History of melanoma History of ovarian cancer Lung cancer Breast cancer Diarrhea Restless leg syndrome Low back pain Colon cancer Encounter for pre-operative examination Abnormal PET scan of lung Dyslipidemia Renal insufficiency Hx of multiple pulmonary nodules x3 nodules radiation treatments Fall 2021 Chronic anemia Bronchiectasis Thoracic back pain Frequent bowel movements Loperamide prn Dizziness Chronic issue, PCP aware/monitoring BCC (basal cell carcinoma) s/p excision per PCP records (left ankle) Hx of blood clots Hx LLE DVT r/t immobility after an injury to foot Breast cancer, left Hx (2020) Melanoma s/p excision per PCP records (right medial thigh) Hypertension Gout 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 2019) Surgical History History of hemicolectomy [place] [facility] [place], tumor removal History of bronchoscopy 04/2022 at [facility] Hx of total hysterectomy with removal of both tubes and ovaries Hx of lumpectomy Left breast lumpectomy (no lymph node removal per patient - patient states there is no restrictions with the left arm) -also had radiation History of breast biopsy left H/O nephrolithotomy with removal of calculi 1971 History of esophagogastroduodenoscopy (EGD) History of colonoscopy Hx of tonsillectomy 1948 H/O melanoma excision Hx of cholecystectomy Family History Brother Family history of diabetes mellitus Other No family history of adverse response to anesthesia No pertinent family history Social History Smoking Status: Never smoker Second Hand Exposure: No; Do You Dip or Chew Tobacco: No; Hx Alcohol Use: No Hx Substance Use: No Preferred Language: Upper Sorbian Communication Ability: Effective Visual Impairment: No Limitations Hearing Ability: Hard of Hearing [place] Required: No Beliefs That Will Affect Care: None marital status: Current Living Situation: Spouse current occupational status: retired current occupation: [email or web address]; [email or web address] How many Children do You have: 4 Feels Safe at Home: Yes Childhood Exposure to Second-Hand Smoke: No caffeine: No Dental Care, Regularly: Yes Physical Activity Frequency: Other Physical Activity Frequency Comment: House work Seatbelt Use: sometimes Sunscreen Use: No Assistive Devices: Glasses Allergies Allergies Allergy/AdvReac Type Severity Reaction Status Date / Time adhesive Allergy Intermediate rash, Verified 09/07/23 12:11 redness ciprofloxacin Allergy Unknown Unknown Verified 09/07/23 12:11 lisinopril AdvReac Unknown Cough Verified 09/07/23 12:11 Home Meds Home Medications Medication Instructions Recorded Confirmed cyanocobalamin (vitamin B-12) 1,000 mcg PO Q48H 05/23/19 09/07/23 1,000 mcg tablet vit C 250 mg-vit E 200 unit-zinc 1 tab PO BID 11/28/20 09/07/23 12.5 mg-copper 1 [id number] tablet (ICaps AREDS2 (copper citrate)) loperamide 2 mg capsule 2 mg PO UD PRN Diarrhea 03/15/21 09/07/23 (Anti-Diarrheal (loperamide)) cholecalciferol (vitamin D3) 125 125 mcg PO QAM 09/07/23 09/07/23 mcg (5,000 unit) tablet (Vitamin D3) Previous Rx's Medication Instructions Recorded nitroglycerin 0.4 mg sublingual 0.4 mg sublingual Q5M PRN chest 09/05/21 tablet pain #20 tabs telmisartan 40 1 tab PO QAM #100 tabs 12/05/22 mg-hydrochlorothiazide 12.5 mg tablet (Micardis HCT) allopurinol 100 mg tablet 100 mg PO QAM #90 tabs 03/27/23 Results & Data (ED) Vital Signs Vital Signs - 24 hr 09/07/23 09:58 09/07/23 10:40 09/07/23 10:43 Temperature 36.5 C Temperature Source Temporal Artery Scan Pulse Rate 110 H 72 67 Pulse Rate from SpO2 Sensor 68 Respiratory Rate 16 17 Respiratory Depth Normal Blood Pressure 136/57 L 121/59 L Blood Pressure Mean 83 79 Pulse Oximetry 91 98 Oxygen Delivery Method Room Air Sepsis Recent Fever Within 48 Hours No Sepsis New/Unexplained Change in Mental Status No Sepsis Action Taken by Nursing No Action Required 09/07/23 11:00 09/07/23 11:00 09/07/23 11:00 Temperature Temperature Source Pulse Rate 71 Pulse Rate from SpO2 Sensor 71 Respiratory Rate 21 Respiratory Depth Blood Pressure 122/63 Blood Pressure Mean 93 Pulse Oximetry 98 Oxygen Delivery Method Room Air Sepsis Recent Fever Within 48 Hours Sepsis New/Unexplained Change in Mental Status Sepsis Action Taken by Nursing Laboratory Data 09/07/23 10:15 09/07/23 10:15 Lab Results 09/07/23 Range/Units 10:15 WBC 9.60 (4.8-10.8) K/ul RBC 3.93 L (4.20-5.40) M/uL Hgb 11.7 L (12.0-16.0) g/dl Hct 36.1 L (37.0-47.0) % MCV 91.9 (80.0-100.0) fL MCH 29.8 (25.0-34.0) pg MCHC 32.4 (32.0-36.0) g/dL RDW Std Deviation 51.2 H (36.4-46.3) fL RDW Coeff of [place] 15.3 H (11.5-14.5) % Plt Count 320 (130-400) K/uL MPV 10.8 (9.4-12.4) fL Immature Gran % (Auto) 0.4 % Neut % (Auto) 82.9 % Lymph % (Auto) 9.3 % [place] % (Auto) 6.8 % Eos % (Auto) 0.4 % Baso % (Auto) 0.2 % Neut # (Auto) 7.96 H (1.40-6.50) K/uL Lymph # (Auto) 0.89 L (1.20-3.40) K/uL [place] # (Auto) 0.65 H (0.11-0.59) K/uL Eos # (Auto) 0.04 (0.00-0.50) K/uL Baso # (Auto) 0.02 (0.00-0.20) K/uL Immature Gran # (Auto) 0.04 (0.01-0.20) K/uL Sodium 139 (136-145) mmol/L Potassium 3.3 L (3.5-5.1) mmol/L Chloride 103 (98-107) mmol/L Carbon Dioxide 27 (21-32) mmol/L Anion Gap 9 (3-11) BUN 39 H (6-23) mg/dl Creatinine 1.58 H (0.6-1.2) mg/dl Est Cr Clr Drug Dosing 18.2 ml/min Est GFR ( Amer) 34.0 ml/min Est GFR (Non-Af Amer) 29.3 ml/min BUN/Creatinine Ratio 24.7 H (10-20) Glucose 110 H (70-99(Fasting)) mg/dl Calcium 11.2 H (8.6-10.3) mg/dl Total Bilirubin 0.7 (0.2-1.0) mg/dl AST 18 (13-39) U/L ALT 9 (7-52) U/L Alkaline Phosphatase 151 H (34-104) U/L Troponin I High Sens 10.9 (0-14) pg/ml Total Protein 7.0 (6.0-8.3) gm/dl Albumin 4.0 (3.4-5.0) gm/dl Globulin 3.0 (2.5-4.0) gm/dl Albumin/Globulin Ratio 1.3 (0.9-2) Lipase 39 (11-82) U/L Urine Color Yellow Urine Appearance Cloudy A (Clear) Urine pH 7.0 (4.5-7.5) Ur Specific [place] 1.017 (1.000-1.030) Urine Protein Trace H (Negative) Urine Glucose (UA) Negative (Negative) Urine Ketones Trace H (Negative) Urine Blood Negative (Negative) Urine Nitrite Positive A (Negative) Urine Bilirubin Negative (Negative) Urine Urobilinogen Negative (Negative) Ur Leukocyte Esterase 2+ H (Negative) Urine WBC (Auto) >30 H (0-5) /hpf Urine RBC (Auto) 0-4 (0-4) /hpf U Hyaline Cast (Auto) 1-5 (0-5) /lpf U Epithel Cells (Auto) 10-20 H (0-5) /lpf Urine Bacteria (Auto) 4+ H (Negative) Administered Medications Potassium Chloride/Dextrose/Sod Cl (D5w And 1/2nss + 20meq Kcl) 20 meq in 1,000 mls @ 100 mls/hr IV .Q10H AMOR Stop: 10/07/23 13:29 Last Admin: 09/07/23 14:14 Dose: 100 mls/hr Documented By: BCN Discontinued Medications Sodium Chloride (Nss) 500 mls @ 999 mls/hr IV .Q31M STA Stop: 09/07/23 10:39 Last Infusion: 09/07/23 11:19 Dose: Infused Documented By: Admin: 09/07/23 10:29 Dose: 999 mls/hr Documented By: POONAM Acetaminophen (Ofirmev) 1,000 mg in 100 mls @ 400 mls/hr IV NOW STA Stop: 09/07/23 12:20 Last Infusion: 09/07/23 12:40 Dose: Infused Documented By: Admin: 09/07/23 12:21 Dose: 400 mls/hr Documented By: ADOLFO Ceftriaxone Sodium (Rocephin) 2,000 mg in 50 mls @ 100 mls/hr IV NOW STA Stop: 09/07/23 12:35 Last Infusion: 09/07/23 12:58 Dose: Infused Documented By: Admin: 09/07/23 12:21 Dose: 100 mls/hr Documented By: ADOLFO Ondansetron HCl (Ondansetron Inj 2 Mg/Ml 2 Ml Vial) 4 mg IV NOW STA Stop: 09/07/23 10:10 Last Admin: 09/07/23 10:29 Dose: 4 mg Documented By: POONAM Imaging Data Radiologist's Impression: Chest X-Ray 09/07/23 10:10 SINGLE VIEW CHEST CLINICAL HISTORY: Generalized abdominal pain. Lung cancer. FINDINGS: An AP, portable, upright chest radiograph is compared to study dated 05/20/2022 and correlated with chest CT dated 07/03/2023. The heart is enlarged. The pulmonary vasculature is noncongested. Chronic interstitial thickening is similar to previous. Nodular opacities in the lingula are again noted and similar to previous. There is no airspace consolidation typical for pneumonia or pleural effusion. Scarring/atelectasis is noted at the lung bases. Additional foci of parenchymal scarring are seen throughout both lungs. No pneumothorax is seen. The skeletal structures are osteopenic. The bony thorax is grossly intact. IMPRESSION: 1. Mild cardiomegaly with no active disease in the chest. 2. Nodular opacities in the lingula are again noted and similar to previous. ACT 112: Negative or not required by law. Electronically signed by: Mikel Hills M.D. 09/07/2023 10:21 AM Abdomen/Pelvis CT 09/07/23 11:02 CT SCAN OF THE ABDOMEN AND PELVIS WITHOUT IV CONTRAST CLINICAL HISTORY: Generalized abdominal pain. COMPARISON STUDY: Abdominal CT dated 01/02/2023. TECHNIQUE: CT scan of the abdomen and pelvis is performed from the lung bases to the proximal femora. Images are reviewed in the axial, sagittal, and coronal planes. IV contrast was not administered for this examination. Note that the examination was performed in significantly suboptimal fashion without IV contrast. A dose lowering technique was utilized adhering to the principles of ALARA. CT DOSE: 433.55 mGy.cm FINDINGS: Lung bases: The heart is normal in size and without pericardial effusion. There are trace pleural effusions with bibasilar scarring/atelectasis. No airspace consolidation is seen typical for pneumonia. There is a small hiatal hernia. Liver: The unenhanced liver is normal in size, contour, and attenuation. There is no intrahepatic biliary ductal dilatation. Gallbladder: Surgically absent noting clips in the gallbladder fossa. Spleen: Normal in size and attenuation. Pancreas: The unenhanced pancreas is mildly atrophic and grossly unremarkable. Adrenal glands: Unremarkable. Kidneys: The unenhanced kidneys demonstrate mild cortical atrophy and are without hydronephrosis. There are no renal calculi identified. Small bilateral renal cysts measure up to 1.4 cm. 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 Abdominal vasculature: The abdominal aorta is normal in course and caliber noting mild atherosclerotic calcification. Bowel: There is postoperative change from right sided colon resection with ileocolic anastomosis. The proximal small bowel loops are distended and fluid- filled, measuring up to 3.3 cm in diameter. There is interloop fluid. A transition point is suggested in the ventral upper pelvis on image #167, and the distal small bowel is decompressed. Findings are consistent with a high-grade small bowel obstruction. No pneumatosis intestinalis or portal venous gas is seen. Peritoneum: No intraperitoneal free air is identified. There is trace abdominopelvic ascites. Lymphadenopathy: None. Pelvic viscera: The bladder is normal as visualized. The uterus is surgically absent. No adnexal lesion is seen. Skeletal structures: The skeletal structures are osteopenic. Mild lumbosacral spondylosis is observed. No lytic or blastic lesions are seen. IMPRESSION: 1. High-grade small bowel obstruction. There is a possible transition point in the ventral upper pelvis, and this is likely on the basis of adhesions. 2. There is trace interloop fluid. 3. No intraperitoneal free air is identified and no focally thick-walled bowel loops are seen. There is no pneumatosis intestinalis or portal venous gas. 4. There is postsurgical change from right-sided colon resection with ileocolic anastomosis. 5. Trace pleural effusions. 6. Trace abdominopelvic ascites. 7. Additional findings as above. ACT 112: Negative or not required by law. Electronically signed by: Mikel Hills M.D. 09/07/2023 11:45 AM Discharge Plan Visit Data Chief Complaint: Abdominal Pain Stated Complaint: ABDOMINAL PAIN ED Provider: Gregory Blas ED Midlevel Provider: Mariaelena Mcneil Discharge Problem: Small bowel obstruction, UTI (urinary tract infection) Patient Disposition: Admitted As Inpatient Condition: Good Discharge Instructions Interventions: ED Discharge Assessment Last Done: 09/07/23 14:39 Discharge Problem: UTI (urinary tract infection) Qualifiers: Urinary tract infection type: acute cystitis Hematuria presence: without hematuria Qualified Code(s): N30.00 - Acute cystitis without hematuria
[2023-09-07 11:00] LABS: Albumin Globulin Ratio 1.3 (0.9-2); BUN Creatinine Ratio 24.7 (10-20); Bilirubin,Total 0.7 mg/dl (0.2-1.0); Calcium 11.2 mg/dl (8.6-10.3); Creatinine Clr Calc Pharmacy 18.2 ml/min; Est GFR (Non-African American) 29.3 ml/min; Potassium 3.3 mmol/L (3.5-5.1)
[2023-09-07 11:07] LABS: Troponin I High Sensitivity 10.9 pg/ml (0-14)
--- NOTE | 2023-09-07 11:47 | CT Scan Report ---
CT SCAN OF THE ABDOMEN AND PELVIS WITHOUT IV CONTRAST CLINICAL HISTORY: Generalized abdominal pain. COMPARISON STUDY: Abdominal CT dated 01/02/2023. TECHNIQUE: CT scan of the abdomen and pelvis is performed from the lung bases to the proximal femora. Images are reviewed in the axial, sagittal, and coronal planes. IV contrast was not administered for this examination. Note that the examination was performed in significantly suboptimal fashion withou t IV contrast. A dose lowering technique was utilized adhering to the principles of ALARA. CT DOSE: 433.55 mGy.cm FINDINGS: Lung bases: The heart is normal in size and without pericardial effusion. There are trace pleural eff usions with bibasilar scarring/atelectasis. No airspace consolidation is seen typical for pneumonia. There is a small hiatal hernia. Liver: The unenhanced liver is normal in size, contour, and attenuation. There is no intrahepatic fatmata iary ductal dilatation. Gallbladder: Surgically absent noting clips in the gallbladder fossa. Spleen: Normal in size and attenuation. Pancreas: The unenhanced pancreas is mildly atrophic and grossly unremarkable. Adrenal glands: Unremarkable. Kidneys: The unenhanced kidneys demonstrate mild cortical atrophy and are without hydronephrosis. The re are no renal calculi identified. Small bilateral renal cysts measure up to 1.4 cm. A 7 mm angiomyo lipoma is noted in the right lower pole. Abdominal vasculature: The abdominal aorta is normal in course and caliber noting mild atheroscleroti c calcification. Bowel: There is postoperative change from right sided colon resection with ileocolic anastomosis. The proximal small bowel loops are distended and fluid-filled, measuring up to 3.3 cm in diameter. There is interloop fluid. A transition point is suggested in the ventral upper pelvis on image #167, and t he distal small bowel is decompressed. Findings are consistent with a high-grade small bowel obstruct ion. No pneumatosis intestinalis or portal venous gas is seen. Peritoneum: No intraperitoneal free air is identified. There is trace abdominopelvic ascites. Lymphadenopathy: None. Pelvic viscera: The bladder is normal as visualized. The uterus is surgically absent. No adnexal lesi on is seen. Skeletal structures: The skeletal structures are osteopenic. Mild lumbosacral spondylosis is observed . No lytic or blastic lesions are seen. IMPRESSION: 1. High-grade small bowel obstruction. There is a possible transition point in the ventral upper pelv is, and this is likely on the basis of adhesions. 2. There is trace interloop fluid. 3. No intraperitoneal free air is identified and no focally thick-walled bowel loops are seen. There is no pneumatosis intestinalis or portal venous gas. 4. There is postsurgical change from right-sided colon resection with ileocolic anastomosis. 5. Trace pleural effusions. 6. Trace abdominopelvic ascites. 7. Additional findings as above. ACT 112: Negative or not required by law. Electronically signed by: Mikel Hills M.D. 09/07/2023 11:45 AM
--- NOTE | 2023-09-07 12:04 | Emergency Department Note ---
ED Visit Note I was consulted by the Advanced Practice Provider Ann Mcneil PA-C. I personally made/approved the management plan and take responsibility for the patient management. I performed a substantive portion of the visit. This includes the aspects of: -History/Physical/Personally seeing the patient -MDM -I independently interpreted the following studies: Chest x-ray which does not show obvious pneumonia or pneumothorax. Blood work shows a normal white count mild anemia hemoglobin 11.7 with a normal platelet count. Mild hypokalemia at 3.3. Calcium elevated 11.2 .
[2023-09-07] MEDS ORDERED: cefTRIAXone SODIUM 2,000 MG/50 ML BAG IV STA (12:06)
[2023-09-07] MEDS ORDERED: ACETAMINOPHEN 1,000 MG/100 ML VIAL IV STA (12:06)
--- NOTE | 2023-09-07 12:44 | History & Physical Report ---
Date of Service September 07, 2023 Assessment & Plan (1) Small bowel obstruction: Plan: Multiple recurrences of this managed conservatively NPO, NG tube, IV fluids Consult surgery (2) UTI (urinary tract infection): Plan: IV ceftriaxone 1g daily. Follow up urine culture. (3) History of hemicolectomy: (4) Hypertension: Plan: Holding anti-hypertensives while NPO Monitor for need for IV medications. (5) Chronic gout: Plan: Continue allopurinol when able to take PO meds Plan VTE prophylaxis - heparin 5000 units SQ BID Diet - NPO Disposition - admit to med/surg Admission and Anticipated Discharge Date Admission Date: September 07, 2023 History of Present Illness Chief Complaint: Abdominal pain Primary Care Provider: Mikel Sanford MD Zeina Granger is an 88 year old female with history of small bowel obstruction and colon cancer status post lap right hemicolectomy who presents to the ER with abdominal pain, nausea, vomiting. Intermittent symptoms for the last 3 weeks but much worse last night and persistent since then. Central abdomen, severity 8/10 at worse, no radiation. On review of systems she also notes urinary frequency for a few months. 2-3 times a night. No fever or chills. No dysuria. Allergies Allergy/AdvReac Type Severity Reaction Status Date / Time adhesive Allergy Intermediate rash, Verified 09/07/23 12:11 redness ciprofloxacin Allergy Unknown Unknown Verified 09/07/23 12:11 latex Allergy Rash Verified 09/07/23 15:18 tetracycline Allergy Unknown Verified 09/07/23 15:18 lisinopril AdvReac Unknown Cough Verified 09/07/23 12:11 Home Medications Medication Instructions Recorded Confirmed Type cyanocobalamin (vitamin B-12) 1,000 mcg PO Q48H 05/23/19 09/07/23 History 1,000 mcg tablet vit C 250 mg-vit E 200 unit-zinc 1 tab PO BID 11/28/20 09/07/23 History 12.5 mg-copper 1 wv-[id number]-kvuzyc tablet (ICaps AREDS2 (copper citrate)) loperamide 2 mg capsule 2 mg PO UD PRN Diarrhea 03/15/21 09/07/23 History (Anti-Diarrheal (loperamide)) nitroglycerin 0.4 mg sublingual 0.4 mg sublingual Q5M PRN chest 09/05/21 09/07/23 Rx tablet pain #20 tabs telmisartan 40 1 tab PO QAM #100 tabs 12/05/22 09/07/23 Rx mg-hydrochlorothiazide 12.5 mg tablet (Micardis HCT) allopurinol 100 mg tablet 100 mg PO QAM #90 tabs 03/27/23 09/07/23 Rx cholecalciferol (vitamin D3) 125 125 mcg PO QAM 09/07/23 09/07/23 History mcg (5,000 unit) tablet (Vitamin D3) Past Med/Surg History Medical History (Updated 09/07/23 @ 15:24 by Mariaelena Mcneil PA-C) Small bowel obstruction x3 (most recent 02/2021- medically managed), related to abdominal adhesions (multiple SBO) Iron deficiency anemia Medicare annual wellness visit, subsequent History of melanoma History of ovarian cancer Lung cancer Breast cancer Diarrhea Restless leg syndrome Low back pain Colon cancer Encounter for pre-operative examination Abnormal PET scan of lung Dyslipidemia Renal insufficiency Hx of multiple pulmonary nodules x3 nodules radiation treatments Fall 2021 Chronic anemia Bronchiectasis Thoracic back pain Frequent bowel movements Loperamide prn Dizziness Chronic issue, PCP aware/monitoring BCC (basal cell carcinoma) s/p excision per PCP records (left ankle) Hx of blood clots Hx LLE DVT r/t immobility after an injury to foot Breast cancer, left Hx (2020) Melanoma s/p excision per PCP records (right medial thigh) Hypertension Gout 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 2019) Surgical History History of hemicolectomy History of colon resection 02/05/2023 @ [facility] [place] 12 inches removed, tumor removal History of bronchoscopy 04/2022 at [facility] Hx of total hysterectomy with removal of both tubes and ovaries Hx of lumpectomy Left breast lumpectomy (no lymph node removal per patient - patient states there is no restrictions with the left arm) -also had radiation History of breast biopsy left H/O nephrolithotomy with removal of calculi 1971 History of esophagogastroduodenoscopy (EGD) History of colonoscopy Hx of tonsillectomy 194 H/O melanoma excision Hx of cholecystectomy Family History Brother Family history of diabetes mellitus Other No family history of adverse response to anesthesia No pertinent family history Social History Smoking Status: Never smoker Second Hand Exposure: No; Do You Dip or Chew Tobacco: No; Hx Alcohol Use: No Hx Substance Use: No Preferred Language: Slovak Communication Ability: Effective Visual Impairment: No Limitations Hearing Ability: Hard of Hearing Brick Paver Required: No Beliefs That Will Affect Care: None marital status: Current Living Situation: Spouse current occupational status: retired current occupation: [employer]; Admittedly How many Children do You have: 4 Other Information That Helps Us Care for You: No Feels Safe at Home: Yes Safety Concerns: Feels Safe At This Time Childhood Exposure to Second-Hand Smoke: No caffeine: No Dental Care, Regularly: Yes Physical Activity Frequency: Other Physical Activity Frequency Comment: House work Seatbelt Use: sometimes Sunscreen Use: No Assistive Devices: Glasses Review of Systems Review of Systems: All systems reviewed & are unremarkable except as noted in HPI & below Physical Exam Constitutional: WD/WN, vitals as above ENMT: external ear and nose normal, oropharynx normal Respiratory: normal respiratory effort, lungs clear to auscultation Cardiovascular: RRR, no murmur, no edema Gastrointestinal (Abdomen): Inspection/Auscultation: abdomen normal to inspection; abdomen not distended Percussion/Palpation: + abdomen tender (mild generalized) and abdomen soft; no guarding and abdomen not rigid Musculoskeletal: no cyanosis or clubbing, extremities motor strength 5/5 Skin: no rashes, warm and dry Neurologic: moves all extremities and awake; not confused Psychiatric: A+Ox3, euthymic affect Genitourinary: + CVA tenderness (right, 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) Results & Data Results & Data Vital Signs (Past 12 Hours) Vital Signs Temp Pulse Resp BP Pulse Ox O2 Del Method 09/07/23 11:00 71 21 98 09/07/23 11:00 122/63 09/07/23 11:00 Room Air 09/07/23 10:43 67 17 121/59 L 98 09/07/23 10:40 72 09/07/23 09:58 36.5 C 110 H 16 136/57 L 91 Room Air Laboratory Results Abnormal lab results 09/07/23 Range/Units 10:15 RBC 3.93 L (4.20-5.40) M/uL Hgb 11.7 L (12.0-16.0) g/dl Hct 36.1 L (37.0-47.0) % RDW Std Deviation 51.2 H (36.4-46.3) fL RDW Coeff of [place] 15.3 H (11.5-14.5) % Neut # (Auto) 7.96 H (1.40-6.50) K/uL Lymph # (Auto) 0.89 L (1.20-3.40) K/uL [place] # (Auto) 0.65 H (0.11-0.59) K/uL Potassium 3.3 L (3.5-5.1) mmol/L BUN 39 H (6-23) mg/dl Creatinine 1.58 H (0.6-1.2) mg/dl BUN/Creatinine Ratio 24.7 H (10-20) Glucose 110 H (70-99(Fasting)) mg/dl Calcium 11.2 H (8.6-10.3) mg/dl Alkaline Phosphatase 151 H (34-104) U/L Urine Appearance Cloudy A (Clear) Urine Protein Trace H (Negative) Urine Ketones Trace H (Negative) Urine Nitrite Positive A (Negative) Ur Leukocyte Esterase 2+ H (Negative) Urine WBC (Auto) >30 H (0-5) /hpf U Epithel Cells (Auto) 10-20 H (0-5) /lpf Urine Bacteria (Auto) 4+ H (Negative) Diagnostic Findings SINGLE VIEW CHEST CLINICAL HISTORY: Generalized abdominal pain. Lung cancer. FINDINGS: An AP, portable, upright chest radiograph is compared to study dated 05/20/2022 and correlated with chest CT dated 07/03/2023. The heart is enlarged. The pulmonary vasculature is noncongested. Chronic interstitial thickening is similar to previous. Nodular opacities in the lingula are again noted and similar to previous. There is no airspace consolidation typical for pneumonia or pleural effusion. Scarring/atelectasis is noted at the lung bases. Additional foci of parenchymal scarring are seen throughout both lungs. No pneumothorax is seen. The skeletal structures are osteopenic. The bony thorax is grossly intact. IMPRESSION: 1. Mild cardiomegaly with no active disease in the chest. 2. Nodular opacities in the lingula are again noted and similar to previous. CT SCAN OF THE ABDOMEN AND PELVIS WITHOUT IV CONTRAST CLINICAL HISTORY: Generalized abdominal pain. COMPARISON STUDY: Abdominal CT dated 01/02/2023. TECHNIQUE: CT scan of the abdomen and pelvis is performed from the lung bases to the proximal femora. Images are reviewed in the axial, sagittal, and coronal planes. IV contrast was not administered for this examination. Note that the examination was performed in significantly suboptimal fashion without IV contrast. A dose lowering technique was utilized adhering to the principles of ALARA. CT DOSE: 433.55 mGy.cm FINDINGS: Lung bases: The heart is normal in size and without pericardial effusion. There are trace pleural effusions with bibasilar scarring/atelectasis. No airspace consolidation is seen typical for pneumonia. There is a small hiatal hernia. Liver: The unenhanced liver is normal in size, contour, and attenuation. There is no intrahepatic biliary ductal dilatation. Gallbladder: Surgically absent noting clips in the gallbladder fossa. Spleen: Normal in size and attenuation. Pancreas: The unenhanced pancreas is mildly atrophic and grossly unremarkable. Adrenal glands: Unremarkable. Kidneys: The unenhanced kidneys demonstrate mild cortical atrophy and are without hydronephrosis. There are no renal calculi identified. Small bilateral renal cysts measure up to 1.4 cm. 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 Abdominal vasculature: The abdominal aorta is normal in course and caliber noting mild atherosclerotic calcification. Bowel: There is postoperative change from right sided colon resection with ileocolic anastomosis. The proximal small bowel loops are distended and fluid- filled, measuring up to 3.3 cm in diameter. There is interloop fluid. A transition point is suggested in the ventral upper pelvis on image #167, and the distal small bowel is decompressed. Findings are consistent with a high-grade small bowel obstruction. No pneumatosis intestinalis or portal venous gas is seen. Peritoneum: No intraperitoneal free air is identified. There is trace abdominopelvic ascites. Lymphadenopathy: None. Pelvic viscera: The bladder is normal as visualized. The uterus is surgically absent. No adnexal lesion is seen. Skeletal structures: The skeletal structures are osteopenic. Mild lumbosacral spondylosis is observed. No lytic or blastic lesions are seen. IMPRESSION: 1. High-grade small bowel obstruction. There is a possible transition point in the ventral upper pelvis, and this is likely on the basis of adhesions. 2. There is trace interloop fluid. 3. No intraperitoneal free air is identified and no focally thick-walled bowel loops are seen. There is no pneumatosis intestinalis or portal venous gas. 4. There is postsurgical change from right-sided colon resection with ileocolic anastomosis. 5. Trace pleural effusions. 6. Trace abdominopelvic ascites. 7. Additional findings as above. Medications Administered ER medications given: Normal saline 500 mL bolus Ondansetron 4 mg IV Acetaminophen 1000 mg IV Ceftriaxone 2000 mg IV ECG Rate (beats per minute): 77 Rhythm: normal sinus Findings: + PVC Comparison ECG Date: from (September 05, 2021) Change: no significant change Code Status & VTE Plan Code Status Full VTE Prophylaxis Plan VTE Prophylaxis will be ordered: Yes PG Care Time/CCT Total # of Minutes Spent Total Time Spent with Patient: Total time spent is greater than 50% in coordination of care (as documented) at patient's floor/unit and/or counseling patient: Coding Level of Care Code 06093 INT INP/OBS CARE 2/55MIN Diagnoses Small bowel obstruction K56.609 UTI (urinary tract infection) N39.0 History of hemicolectomy Z90.49 Hypertension I10 Chronic gout [id number]
--- NOTE | 2023-09-07 13:21 | Surgery Consultation ---
Date of Consultation September 07, 2023 Assessment & Plan (1) Small bowel obstruction: IVF inability to tolerate NG placement if N/V ensues would place NG History of Present Illness History of Present Illness This 88-year-old female patient with intermittent abdominal pain for the past couple of weeks, she had acute episode last night with vomiting. She has a history of bowel obstructions treated conservatively. Last BM yesterday and is passing flatus. She is s/p colectomy for CA. Also XRT for ovarian tumor. She denies any pain, fevers, cough, dysuria, chest pain, SOB or URI symptoms. Denies any . A CT scan is c/w a SBO. Allergies Allergy/AdvReac Type Severity Reaction Status Date / Time adhesive Allergy Intermediate rash, Verified 09/07/23 12:11 redness ciprofloxacin Allergy Unknown Unknown Verified 09/07/23 12:11 lisinopril AdvReac Unknown Cough Verified 09/07/23 12:11 Home Medications Medication Instructions Recorded Confirmed Type cyanocobalamin (vitamin B-12) 1,000 mcg PO Q48H 05/23/19 09/07/23 History 1,000 mcg tablet vit C 250 mg-vit E 200 unit-zinc 1 tab PO BID 11/28/20 09/07/23 History 12.5 mg-copper 1 py-hpd-mgcmia tablet (ICaps AREDS2 (copper citrate)) loperamide 2 mg capsule 2 mg PO UD PRN Diarrhea 03/15/21 09/07/23 History (Anti-Diarrheal (loperamide)) nitroglycerin 0.4 mg sublingual 0.4 mg sublingual Q5M PRN chest 09/05/21 09/07/23 Rx tablet pain #20 tabs telmisartan 40 1 tab PO QAM #100 tabs 12/05/22 09/07/23 Rx mg-hydrochlorothiazide 12.5 mg tablet (Micardis HCT) allopurinol 100 mg tablet 100 mg PO QAM #90 tabs 03/27/23 09/07/23 Rx cholecalciferol (vitamin D3) 125 125 mcg PO QAM 09/07/23 09/07/23 History mcg (5,000 unit) tablet (Vitamin D3) Patient History Medical History (Updated 09/07/23 @ 12:52 by James Simmons MD) Small bowel obstruction x3 (most recent 02/2021- medically managed), related to abdominal adhesions (multiple SBO) Iron deficiency anemia Medicare annual wellness visit, subsequent History of melanoma History of ovarian cancer Lung cancer Breast cancer Diarrhea Restless leg syndrome Low back pain Colon cancer Encounter for pre-operative examination Abnormal PET scan of lung Dyslipidemia Renal insufficiency Hx of multiple pulmonary nodules x3 nodules radiation treatments Fall 2021 Chronic anemia Bronchiectasis Thoracic back pain Frequent bowel movements Loperamide prn Dizziness Chronic issue, PCP aware/monitoring BCC (basal cell carcinoma) s/p excision per PCP records (left ankle) Hx of blood clots Hx LLE DVT r/t immobility after an injury to foot Breast cancer, left Hx (2020) Melanoma s/p excision per PCP records (right medial thigh) Hypertension Gout 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 2019) Surgical History History of hemicolectomy [place] [facility] [place], tumor removal History of bronchoscopy 04/2022 at [facility] Hx of total hysterectomy with removal of both tubes and ovaries Hx of lumpectomy Left breast lumpectomy (no lymph node removal per patient - patient states there is no restrictions with the left arm) -also had radiation History of breast biopsy left H/O nephrolithotomy with removal of calculi 1971 History of esophagogastroduodenoscopy (EGD) History of colonoscopy Hx of tonsillectomy 1948 H/O melanoma excision Hx of cholecystectomy Family History Brother Family history of diabetes mellitus Other No family history of adverse response to anesthesia No pertinent family history Social History Smoking Status: Never smoker Second Hand Exposure: No; Do You Dip or Chew Tobacco: No; Hx Alcohol Use: No Hx Substance Use: No Preferred Language: Kiswahili Communication Ability: Effective Visual Impairment: No Limitations Hearing Ability: Hard of Hearing Records Analyst Required: No Beliefs That Will Affect Care: None marital status: Current Living Situation: Spouse current occupational status: retired current occupation: [employer]; [employer] How many Children do You have: 4 Feels Safe at Home: Yes Childhood Exposure to Second-Hand Smoke: No caffeine: No Dental Care, Regularly: Yes Physical Activity Frequency: Other Physical Activity Frequency Comment: House work Seatbelt Use: sometimes Sunscreen Use: No Assistive Devices: Glasses Review of Systems Constitutional: no fever, no chills and no anorexia Eyes: no problem reported Ear, Nose, Mouth, Throat: no problem reported Respiratory: no cough and no dyspnea Cardiovascular: no chest pain Gastrointestinal: + nausea and + change in bowel habits; n o abdominal pain and no vomiting Genitourinary: + urinary urgency; no dysuria Musculoskeletal: no back pain Integumentary: no problem reported Neurologic: no localized weakness and no generalized weakness Psychiatric: no behavioral changes Endocrine: no fatigue Hematologic / Lymphatic: no easy bleeding and no easy bruising Physical Exam Constitutional: WD/WN, vitals as above Eyes: PERRL, conjunctivae normal, anicteric sclerae Neck: trachea midline Respiratory: normal respiratory effort, lungs clear to auscultation Cardiovascular: RRR, no murmur, no edema Gastrointestinal (Abdomen): Inspection/Auscultation: abdomen normal to inspection, + abdomen distended and normal bowel sounds Percussion/Palpation: abdomen soft; abdomen nontender, no guarding and abdomen not rigid Musculoskeletal: Head/Neck/Chest: normocephalic and head atraumatic Skin: no rashes, warm and dry Results & Data Vital Signs (Past 12 Hours) Vital Signs Temp Pulse Resp BP Pulse Ox O2 Del Method 09/07/23 11:00 71 21 98 09/07/23 11:00 122/63 09/07/23 11:00 Room Air 09/07/23 10:43 67 17 121/59 L 98 09/07/23 10:40 72 09/07/23 09:58 36.5 C 110 H 16 136/57 L 91 Room Air Diagnostic Findings CT SCAN OF THE ABDOMEN AND PELVIS WITHOUT IV CONTRAST CLINICAL HISTORY: Generalized abdominal pain. COMPARISON STUDY: Abdominal CT dated 01/02/2023. TECHNIQUE: CT scan of the abdomen and pelvis is performed from the lung bases to the proximal femora. Images are reviewed in the axial, sagittal, and coronal planes. IV contrast was not administered for this examination. Note that the examination was performed in significantly suboptimal fashion without IV contrast. A dose lowering technique was utilized adhering to the principles of ALARA. CT DOSE: 433.55 mGy.cm FINDINGS: Lung bases: The heart is normal in size and without pericardial effusion. There are trace pleural effusions with bibasilar scarring/atelectasis. No airspace consolidation is seen typical for pneumonia. There is a small hiatal hernia. Liver: The unenhanced liver is normal in size, contour, and attenuation. There is no intrahepatic biliary ductal dilatation. Gallbladder: Surgically absent noting clips in the gallbladder fossa. Spleen: Normal in size and attenuation. Pancreas: The unenhanced pancreas is mildly atrophic and grossly unremarkable. Adrenal glands: Unremarkable. Kidneys: The unenhanced kidneys demonstrate mild cortical atrophy and are without hydronephrosis. There are no renal calculi identified. Small bilateral renal cysts measure up to 1.4 cm. 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 Abdominal vasculature: The abdominal aorta is normal in course and caliber noting mild atherosclerotic calcification. Bowel: There is postoperative change from right sided colon resection with ileocolic anastomosis. The proximal small bowel loops are distended and fluid- filled, measuring up to 3.3 cm in diameter. There is interloop fluid. A transition point is suggested in the ventral upper pelvis on image #167, and the distal small bowel is decompressed. Findings are consistent with a high-grade small bowel obstruction. No pneumatosis intestinalis or portal venous gas is seen. Peritoneum: No intraperitoneal free air is identified. There is trace abdominopelvic ascites. Lymphadenopathy: None. Pelvic viscera: The bladder is normal as visualized. The uterus is surgically absent. No adnexal lesion is seen. Skeletal structures: The skeletal structures are osteopenic. Mild lumbosacral spondylosis is observed. No lytic or blastic lesions are seen. IMPRESSION: 1. High-grade small bowel obstruction. There is a possible transition point in the ventral upper pelvis, and this is likely on the basis of adhesions. 2. There is trace interloop fluid. 3. No intraperitoneal free air is identified and no focally thick-walled bowel loops are seen. There is no pneumatosis intestinalis or portal venous gas. 4. There is postsurgical change from right-sided colon resection with ileocolic anastomosis. 5. Trace pleural effusions. 6. Trace abdominopelvic ascites. 7. Additional findings as above.
[2023-09-07] MEDS: D5W AND 1/2NSS + 20MEQ KCL 20 MEQ/1,000 ML BAG IV SCH (14:14)
[2023-09-07] MEDS ORDERED: ACETAMINOPHEN 1,000 MG/100 ML VIAL IV PRN (15:12)
[2023-09-07] MEDS: HEPARIN SOD 5,000 UNIT/0.5 ML VIAL SQ SCH (20:13)
--- NOTE | 2023-09-07 21:42 | Electrocardiogram Report ---
Test Reason : Blood Pressure : / mmHG Vent. Rate : 077 BPM Atrial Rate : 077 BPM P-R Int : 142 ms QRS Dur : 086 ms QT Int : 394 ms P-R-T Axes : 068 -13 023 degrees QTc Int : 445 ms Sinus rhythm with occasional Premature ventricular complexes Otherwise normal ECG When compared with ECG of 05-SEP-2021 15:13, No significant change was found Confirmed by Praneeth Dacosta ([id number]) on 09/07/2023 9:42:01 PM Referred By: Confirmed By:Praneeth Dacosta
[2023-09-08] MEDS: D5W AND 1/2NSS + 20MEQ KCL 20 MEQ/1,000 ML BAG IV SCH ×2 (00:04→10:57)
[2023-09-08] MEDS: CHOLECALCIFEROL 5,000 UNITS 125 MCG TAB PO SCH (08:01)
[2023-09-08] MEDS: allopurinoL 100 MG TAB PO SCH (08:01)
[2023-09-08] MEDS: HEPARIN SOD 5,000 UNIT/0.5 ML VIAL SQ SCH ×2 (08:55→20:02)
[2023-09-08 09:31] LABS: Basophils # (auto) 0.02 K/uL (0.00-0.20); Basophils % (auto) 0.4 %; Eosinophils # (auto) 0.18 K/uL (0.00-0.50); Eosinophils % (auto) 3.3 %; Hematocrit (blood only) 32.3 % (37.0-47.0); Hemoglobin 10.3 g/dl (12.0-16.0); Immature Granulocytes # (auto) 0.03 K/uL (0.01-0.20); Immature Granulocytes % (auto) 0.5 %; Lymphocytes # (auto) 1.05 K/uL (1.20-3.40); Lymphocytes % (auto) 19.2 %; Mean Corpuscular Hemoglobin 29.8 pg (25.0-34.0); Mean Corpuscular Hgb Conc 31.9 g/dL (32.0-36.0); Mean Corpuscular Volume 93.4 fL (80.0-100.0); Mean Platelet Volume 11.7 fL (9.4-12.4); Monocytes # (auto) 0.49 K/uL (0.11-0.59); Monocytes % (auto) 8.9 %; Neutrophils # (auto) 3.71 K/uL (1.40-6.50); Neutrophils % (auto) 67.7 %; Platelet Count 239 K/uL (130-400); RDW Coefficient of Variation 15.2 % (11.5-14.5); RDW Standard Deviation 52.3 fL (36.4-46.3); Red Blood Count 3.46 M/uL (4.20-5.40); White Blood Count 5.48 K/ul (4.8-10.8)
[2023-09-08 09:45] LABS: Albumin Globulin Ratio 1.4 (0.9-2); Albumin Level 3.4 gm/dl (3.4-5.0); Bilirubin,Total 0.4 mg/dl (0.2-1.0); Calcium 9.9 mg/dl (8.6-10.3); Creatinine Clr Calc Pharmacy 22.8 ml/min; Est GFR (African American) 44.3 ml/min; Est GFR (Non-African American) 38.2 ml/min; Globulin 2.5 gm/dl (2.5-4.0); Potassium 3.5 mmol/L (3.5-5.1); Total Protein 5.9 gm/dl (6.0-8.3)
--- NOTE | 2023-09-08 10:27 | Surgery Progress Note ---
Date of Service September 08, 2023 Assessment & Plan (1) Small bowel obstruction: Plan: resolved SBO advance diet ambulate will sign off Admission and Anticipated Discharge Date Admission Date: September 07, 2023 Subjective multiple BMs taking po pain resolved Review of Systems Constitutional: no fever and no chills Respiratory: no cough and no dyspnea Cardiovascular: no chest pain Gastrointestinal: no abdominal pain, no nausea, no vomiting and no change in bowel habits Genitourinary: no dysuria Musculoskeletal: no back pain Psychiatric: no behavioral changes Hematologic / Lymphatic: no easy bleeding and no easy bruising Physical Exam Constitutional: WD/WN, vitals as above Respiratory: normal respiratory effort, lungs clear to auscultation Cardiovascular: RRR, no murmur, no edema Gastrointestinal (Abdomen): Inspection/Auscultation: abdomen normal to inspection and normal bowel sounds; abdomen not distended Percussion/Palpation: abdomen soft; abdomen nontender, no guarding and abdomen not rigid Musculoskeletal: Head/Neck/Chest: normocephalic and head atraumatic Skin: no rashes, warm and dry Results & Data Vital Signs (Past 12 Hours) Vital Signs Temp Pulse Resp BP Pulse Ox O2 Del Method 09/08/23 07:03 36.6 C 75 16 111/72 95 Room Air 09/08/23 00:05 36.5 C 63 16 94/60 L 94 Room Air
[2023-09-08] MEDS: cefTRIAXone SODIUM 1,000 MG in DEXTROSE 5 % MINI-B 50 ML IV SCH (10:57)
--- NOTE | 2023-09-08 12:39 | Hospitalist Progress Note ---
Date of Service September 08, 2023 Assessment & Plan (1) Small bowel obstruction: Plan: Multiple recurrences of this managed conservatively - NG tube unable to be placed in ED. - Diet advanced to clear liquid for lunch, will advance to full liquid for dinner. - general surgery consulted - SBO resolved - Advanced diet and encourage ambulation (2) UTI (urinary tract infection): Plan: IV ceftriaxone 1g daily. Follow up urine culture. - Will d.c on PO meds (3) History of hemicolectomy: Plan: Noted. (4) Hypertension: Plan: Telmisartan-HCTZ was on hold while NPO, will continue to hold as BPs have been soft (5) Chronic gout: Plan: Continue home allopurinol (6) Kidney cysts: Plan: Incidental finding on CT scan: Small bilateral renal cysts measure up to 1.4 cm. 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 Plan VTE prophylaxis - heparin 5000 units SQ BID Dispo: continued inpatient stay, possible discharge tomorrow Admission and Anticipated Discharge Date Admission Date: September 07, 2023 Subjective Patient seen ambulating in room. Current complaint is just temperature in the room. Tolerated clear liquids for lunch without nausea and vomiting. Abdominal pain has resolved. Had multiple BM overnight. denies CP or SOB. Does not feel weak walking around the room. Review of Systems Review of Systems: All systems reviewed & are unremarkable except as noted in Subjective Physical Exam Physical Exam: General: NAD, independently ambulating in room, pleasant. VS as above Resp: normal respiratory effort, lungs clear to auscultation CV: RRR, no murmur, Abd: normal bowel sounds, non tender, no hepatosplenomegaly Extremities: Moves all extremities, no edema Neuro: A&O x3, Results & Data Results & Data Vital Signs (Past 12 Hours) Vital Signs Temp Pulse Resp BP Pulse Ox O2 Del Method 09/08/23 07:03 36.6 C 75 16 111/72 95 Room Air Laboratory Results CBC and chemistry reviewed PG Care Time/CCT Total # of Minutes Spent Total Time Spent with Patient: Total time spent is greater than 50% in coordination of care (as documented) at patient's floor/unit and/or counseling patient: Coding Level of Care Code 22177 SUB INP/OBS CARE 2/35MIN Diagnoses Small bowel obstruction K56.609 UTI (urinary tract infection) N30.00 Hematuria presence: without hematuria Urinary tract infection type: acute cystitis History of hemicolectomy Z90.49 Hypertension I10 Chronic gout [id number].[id number] Kidney cysts N28.1 (2) UTI (urinary tract infection) Hematuria presence: without hematuria Urinary tract infection type: acute cystitis Qualified Code(s): N30.00 - Acute cystitis without hematuria
[2023-09-09] MEDS: allopurinoL 100 MG TAB PO SCH (07:17)
[2023-09-09] MEDS: CHOLECALCIFEROL 5,000 UNITS 125 MCG TAB PO SCH (07:17)
[2023-09-09] MEDS ORDERED: ACETAMINOPHEN 325 MG TAB PO PRN (07:43)
[2023-09-09] MEDS: HEPARIN SOD 5,000 UNIT/0.5 ML VIAL SQ SCH ×2 (08:03→20:09)
[2023-09-09] MEDS: cefTRIAXone SODIUM 1,000 MG in DEXTROSE 5 % MINI-B 50 ML IV SCH (10:55)
[2023-09-09 11:17] LABS: BUN Creatinine Ratio 16.4 (10-20); Calcium 10.3 mg/dl (8.6-10.3); Est GFR (African American) 49.4 ml/min; Est GFR (Non-African American) 42.6 ml/min; Magnesium 1.2 mg/dl (1.7-2.4); Potassium 3.3 mmol/L (3.5-5.1)
[2023-09-09] MEDS ORDERED: MAGNESIUM SULFATE / D5W 1 GM/100 ML BAG IV ONE ×2 (12:40→15:00)
[2023-09-09] MEDS ORDERED: POTASSIUM CHLORIDE CRTAB 20 MEQ TABCR PO STA (12:42)
--- NOTE | 2023-09-09 15:04 | Hospitalist Progress Note ---
Date of Service September 09, 2023 Assessment & Plan (1) Small bowel obstruction: Plan: Multiple recurrences of this managed conservatively - NG tube unable to be placed in ED. - tolerating regular, low fiber diet without issue. - general surgery consulted - SBO resolved - Advanced diet and encourage ambulation (2) Hypomagnesemia: Plan: Ma.2, K 3.3 - 2g IV mag - 20mg K PO - recheck AM (3) UTI (urinary tract infection): Plan: IV ceftriaxone 1g daily. - urine culture with pansensitive Proteus mirabilis - Will d.c on PO meds (4) History of hemicolectomy: Plan: Noted. (5) Hypertension: Plan: Telmisartan-HCTZ was on hold while NPO, will continue to hold as BPs have been soft (6) Chronic gout: Plan: Continue home allopurinol (7) Kidney cysts: Plan: Incidental finding on CT scan: Small bilateral renal cysts measure up to 1.4 cm. 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 - Has been noted to have cysts on scans prior, monitor outpatient. Plan VTE prophylaxis - heparin 5000 units SQ BID Dispo: was planned for discharge today, but with weather and electrolytes will keep inpatient and replace electrolytes and recheck in a.m. Hopeful for triny pulliam tomorrow Admission and Anticipated Discharge Date Admission Date: September 07, 2023 Subjective patient seen sitting in the chair. Continues to feel well, ambulates independently. Tolerated regular diet, low fiber this morning for breakfast without issue. States that she was so hungry she ate a full tray. Continue to have bowel movements last night and this morning. States that her PCP had started her on Imodium twice a day but was concerned about taking this. Discussed small bowel likelihood increased by constipation. Patient aware of incidental finding of kidney cyst on CT. Review of Systems Review of Systems: All systems reviewed & are unremarkable except as noted in Subjective Physical Exam Physical Exam: General: NAD, Sitting in the chair, pleasant. VS as above Resp: normal respiratory effort, lungs clear to auscultation CV: RRR, no murmur, Abd: normal bowel sounds, non tender, no hepatosplenomegaly Extremities: Moves all extremities, no edema Neuro: A&O x3, Results & Data Results & Data Vital Signs (Past 12 Hours) Vital Signs Temp Pulse Resp BP Pulse Ox O2 Del Method 09/09/23 14:54 36.4 C L 62 18 104/65 99 Room Air 09/09/23 07:10 36.5 C 61 18 118/58 L 93 Room Air Laboratory Results chemistry magnesium reviewed PG Care Time/CCT Total # of Minutes Spent Total Time Spent with Patient: Total time spent is greater than 50% in coordination of care (as documented) at patient's floor/unit and/or counseling patient: Coding Level of Care Code 42884 SUB INP/OBS CARE 3/50MIN Diagnoses Small bowel obstruction K56.609 Hypomagnesemia E83.42 UTI (urinary tract infection) N30.00 Hematuria presence: without hematuria Urinary tract infection type: acute cystitis History of hemicolectomy Z90.49 Hypertension I10 Chronic gout M1A.9XX0 Kidney cysts N28.1 (3) UTI (urinary tract infection) Hematuria presence: without hematuria Urinary tract infection type: acute cystitis Qualified Code(s): N30.00 - Acute cystitis without hematuria
[2023-09-10 06:31] LABS: BUN Creatinine Ratio 19.9 (10-20); Calcium 9.5 mg/dl (8.6-10.3); Creatinine Clr Calc Pharmacy 21.3 ml/min; Est GFR (African American) 40.7 ml/min; Est GFR (Non-African American) 35.1 ml/min; Magnesium 1.6 mg/dl (1.7-2.4); Potassium 3.7 mmol/L (3.5-5.1)
[2023-09-10] MEDS ORDERED: MAGNESIUM SULFATE / D5W 1 GM/100 ML BAG IV ONE (08:05)
[2023-09-10] MEDS: CHOLECALCIFEROL 5,000 UNITS 125 MCG TAB PO SCH (08:32)
[2023-09-10] MEDS: allopurinoL 100 MG TAB PO SCH (08:32)
[2023-09-10] MEDS: HEPARIN SOD 5,000 UNIT/0.5 ML VIAL SQ SCH (08:32)
--- NOTE | 2023-09-10 11:07 | Discharge Summary ---
Discharge Summary Date of Service September 10, 2023 Notes For Next Care Provider -Stopped HCTZ - likely contributing to hypomag. BP normal and dehydration could be exacerbating constipation causing SBO. would not recommend restarting. Consider prn lasix if LE edema becomes problematic again - Recieved 3g IV mag repletion -Treated for UTI with ceftriaxone, transitioned to augmentin outpatient - Stop imodium to prevent constipation -SBO resolved with conservative measures -Monitor kidney cysts, have been noted on previous CT scans but this was the first time it mentioned angiomyolipoma Medication Changes From Visit - Stop HCTZ - Stop imodium - Augmentin BID x4 day - mag oxide 400 mg x 7 days Admission HPI Per Admitting Provider Zeina Granger is an 88 year old female with history of small bowel obstruction and colon cancer status post lap right hemicolectomy who presents to the ER with abdominal pain, nausea, vomiting. Intermittent symptoms for the last 3 weeks but much worse last night and persistent since then. Central abdomen, severity 8/10 at worse, no radiation. On review of systems she also notes urinary frequency for a few months. 2-3 times a night. No fever or chills. No dysuria. Principal Dx & Hospital Course #1 = Principal Diagnosis (1) Small bowel obstruction: Multiple recurrences of this managed conservatively - tolerating regular, low fiber diet without issue --> recommend continue low fiber diet at discharge - general surgery consulted - SBO resolved - Advanced diet and encourage ambulation (2) Hypomagnesemia: Received 3g IV mag during stay -Discharge with 400mg PO daily x 7 days (3) UTI (urinary tract infection): IV ceftriaxone 1g daily with inpatient - urine culture with pansensitive Proteus mirabilis - Discharge with PO augmentin 500 mg BID x 4 days (4) History of hemicolectomy: Noted. (5) Hypertension: STOP Telmisartan-HCTZ (6) Chronic gout: Continue home allopurinol (7) Kidney cysts: Incidental finding on CT scan: Small bilateral renal cysts measure up to 1.4 cm. 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 - Has been noted to have cysts on scans prior, monitor outpatient. Plan Dispo: discharge to home Discharge Exam General: NAD,sitting in the chair VS as above Resp: normal respiratory effort, no accessory muscle use, lungs clear to auscultation CV: RRR, no murmur, Abd: normal bowel sounds, non tender, no hepatosplenomegaly. no guarding Extremities: Moves all extremities, no edema Neuro: A&O x3, Skin: intact, no lesions noted Updated Medication List Medication Instructions Recorded Confirmed Type cyanocobalamin (vitamin B-12) 1,000 mcg PO Q48H 05/23/19 09/07/23 History 1,000 mcg tablet vit C 250 mg-vit E 200 unit-zinc 1 tab PO BID 11/28/20 09/07/23 History 12.5 mg-copper 1 ar-lir-rypeno tablet (ICaps AREDS2 (copper citrate)) nitroglycerin 0.4 mg sublingual 0.4 mg sublingual Q5M PRN chest 09/05/21 09/07/23 Rx tablet pain #20 tabs allopurinol 100 mg tablet 100 mg PO QAM #90 tabs 03/27/23 09/07/23 Rx cholecalciferol (vitamin D3) 125 125 mcg PO QAM 09/07/23 09/07/23 History mcg (5,000 unit) tablet (Vitamin D3) amoxicillin 500 mg-potassium 1 tab PO BID 4 days #8 tabs 09/10/23 Rx clavulanate 125 mg tablet (Augmentin) magnesium oxide 400 mg (241.3 mg 400 mg PO DAILY #7 tabs 09/10/23 Rx magnesium) tablet Hospital Stay Data Consultations 09/07/23 12:31 ED Decision to Admit Stat Diagnostic Imagining Performed 09/07/23 11:02 CT abd pelvis wo con Stat Pending Results Patient Have Any Pending Studies at Discharge: No Discharge Instructions Given to Patient (Per Discharging Provider) Ms. Granger, Loyd were hospitalized after having a small bowel obstruction. This resolved after gut rest and IV fluids. We were able to advance your diet during your stay and you were able to tolerate a regular diet without difficulty. Would recommend following a low fiber diet for the next week, while your bowels continue to normalize. I have attached information about low fiber diet below. As we discussed, in general you want to avoid constipation to prevent recurrence of obstruction. You should stop the Imodium as well. You were also treated for a UTI with IV antibiotics while you were here. You will need to take Augmentin 500 mg twice a day for 4 days, starting 09/11/2022. This was sent to your pharmacy. As we discussed there was the incidental finding of kidney cysts on your CT scan, stable from previous but should continue to be monitored outpatient. We stopped your blood pressure medication in the hospital and your blood pressures were normal, we will continue to stop this after discharge. This was also likely contributing to your low Magnesium levels. We gave you IV replacement while inpatient and would like you to continue oral replacement for one week - this was also sent to your pharmacy. If you have any new or worsening GI symptoms - nausea, vomiting, abdominal pain, infrequent bowels, contact your PCP. For servere symptoms, chest pain or shortness of breath, please return to the ER. It was our pleasure taking care of you, Marizol Vergara PA-C Total Time Total Time Spent Total Time Spent (In Minutes): Greater than 35 minutes spent in chart review, documentation, time spent with patient and discussion with nursing in preparation for patient discharge Coding Level of Care Code 10431 INP/OBS DISCH >30 MIN Diagnoses Small bowel obstruction K56.609 Hypomagnesemia E83.42 UTI (urinary tract infection) N30.00 Hematuria presence: without hematuria Urinary tract infection type: acute cystitis History of hemicolectomy Z90.49 Hypertension I10 Chronic gout M1A.9XX0 Kidney cysts N28.1
[2023-09-10] MEDS: cefTRIAXone SODIUM 1,000 MG in DEXTROSE 5 % MINI-B 50 ML IV SCH (11:27)
== END 2023-09-10 12:55 | disposition home or self-care (01) | DRG 389 ==
LOC: ED 09:54 → 3E 12:39 → SUATTDRO 12:39 → 3E 14:39

== ENCOUNTER 2023-10-10 11:05 | Inpatient (IN) ==
[2023-10-10 13:34] LABS: Hematocrit (blood only) 42.6 % (37.0-47.0); Hemoglobin 14.4 g/dl (12.0-16.0); Mean Corpuscular Hemoglobin 30.3 pg (25.0-34.0); Mean Corpuscular Hgb Conc 33.8 g/dL (32.0-36.0); Mean Corpuscular Volume 89.5 fL (80.0-100.0); Mean Platelet Volume 11.3 fL (9.4-12.4); Platelet Count 423 K/uL (130-400); RDW Coefficient of Variation 14.7 % (11.5-14.5); RDW Standard Deviation 48.7 fL (36.4-46.3); Red Blood Count 4.76 M/uL (4.20-5.40)
[2023-10-10 13:45] LABS: Alanine Aminotransferase 14 U/L (7-52); Albumin Globulin Ratio 1.2 (0.9-2); Alkaline Phosphatase 178 U/L (34-104); Anion Gap 9 (3-11); Aspartate Aminotransferase 13 U/L (13-39); BUN Creatinine Ratio 30.7 (10-20); Bilirubin,Total 0.8 mg/dl (0.2-1.0); Blood Urea Nitrogen 61 mg/dl (6-23); Calcium 10.9 mg/dl (8.6-10.3); Carbon Dioxide 21 mmol/L (21-32); Chloride 101 mmol/L (98-107); Est GFR (African American) 25.7 ml/min; Est GFR (Non-African American) 22.2 ml/min; Globulin 2.6 gm/dl (2.5-4.0); Glucose 118 mg/dl (70-99(Fasting)); Potassium 5.5 mmol/L (3.5-5.1); Sodium 131 mmol/L (136-145); Total Protein 5.6 gm/dl (6.0-8.3)
[2023-10-10 14:04] LABS: Basophils # (auto) 0.02 K/uL (0.00-0.20); Immature Granulocytes # (auto) 1.64 K/uL (0.01-0.20); Immature Granulocytes % (auto) 3.5 %; Lymphocytes # (auto) 0.77 K/uL (1.20-3.40); Lymphocytes % (auto) 1.7 %; Monocytes # (auto) 1.92 K/uL (0.11-0.59); Monocytes % (auto) 4.1 %; Neutrophils # (auto) 42.06 K/uL (1.40-6.50); Neutrophils % (auto) 90.7 %; White Blood Count 46.41 K/ul (4.8-10.8)
--- NOTE | 2023-10-10 14:20 | Electrocardiogram Report ---
Test Reason : Blood Pressure : / mmHG Vent. Rate : 094 BPM Atrial Rate : 094 BPM P-R Int : 136 ms QRS Dur : 084 ms QT Int : 326 ms P-R-T Axes : 094 072 074 degrees QTc Int : 407 ms Normal sinus rhythm Normal ECG When compared with ECG of 07-SEP-2023 10:21, Premature ventricular complexes are no longer Present Questionable change in QRS axis Nonspecific T wave abnormality no longer evident in Inferior leads Confirmed by Yordy Landin ([id number]) on 10/10/2023 2:20:13 PM Referred By: Confirmed By:Yordy Landin
--- NOTE | 2023-10-10 14:43 | CT Scan Report ---
ABDOMEN AND PELVIS CT WITHOUT CONTRAST CT DOSE: 340.33 mGy.cm HISTORY: DIARRHEA X 1 WEEK TECHNIQUE: Multiaxial CT images of the abdomen and pelvis were performed without contrast. A dose lo wering technique was utilized adhering to the principles of ALARA. COMPARISON STUDY: Abdomen and pelvis CT 09/07/2023. FINDINGS: There are few punctate calcified granulomas within the left lower lobe. Stable 5 mm subpleu ral nodule within the base the right lower lobe on image 28. No pneumoperitoneum. No pneumatosis. No acute fractures identified. Mild body wall edema. There is diffuse mesenteric edema with a small amou nt of ascites. This has progressed in the interval. The unenhanced liver, spleen, adrenal glands, and pancreas are unremarkable. Stable bilateral renal hypodense lesions. These favor cysts. No renal sto joe or hydronephrosis. 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 Prior ch olecystectomy. Normal caliber abdominal aorta. No retroperitoneal or pelvic lymphadenopathy. No dilat ed loops of bowel to suggest an obstruction. Prior right hemicolectomy. Severe thickening of the colo n and rectum with pericolonic fat stranding consistent with a nonspecific proctocolitis. This favors infectious/inflammatory process and could represent a C. difficile colitis. No perforation or abscess at this time. Gallbladder wall thickening which could be due to underdistention. Prior hysterectomy. Mild pelvic floor collapse. IMPRESSION: 1. Severe thickening of the colon and rectum with pericolonic fat stranding consistent with a nonspec ific proctocolitis. This favors an infectious/inflammatory process and could represent a C. difficile colitis. 2. Body wall/mesenteric edema with a small amount of ascites. This has progressed. 3. Prior right hemicolectomy. 4. Additional findings as described above. ACT 112: Negative or not required by law. Electronically signed by: Jarrell Emery M.D. 10/10/2023 2:42 PM
[2023-10-10 15:15] LABS: Magnesium 2.2 mg/dl (1.7-2.4)
[2023-10-10] MEDS: cefTRIAXone SODIUM 2,000 MG/50 ML BAG IV STA (15:34)
[2023-10-10] MEDS: SODIUM CHLORIDE 0.9% 2,000 ML IV ONE (15:35)
--- NOTE | 2023-10-10 15:54 | Emergency Department Note ---
Impression & Plan Diarrhea, Abdominal pain, ZEFERINO (acute kidney injury), Leukocytosis, Acute hyperkalemia, Acute dehydration, Colitis ED Provider Note HISTORY OF PRESENT ILLNESS: Patient is an 88-year-old female presenting with profuse diarrhea. Patient reports in the last week she has been having more than 25 episodes of loose, foul-smelling diarrhea a day. Her most recent antibiotic use was Augmentin 3 weeks ago. She reports generalized abdominal pain. Denies any fevers. Denies any chest pain or shortness of breath. Denies any nausea or vomiting. Reports decreased oral intake. ROS: as above PHYSICAL EXAM: Constitutional: Patient appears in no acute distress. HENT: Head: Normocephalic and atraumatic. Eyes: EOMI, PERRL Mouth/Throat: Mucous membranes moist. Neck: Trachea midline. Neck supple. Cardiovascular: RRR, No murmurs, rubs or gallops. Intact distal pulses. Pulmonary/Chest: No respiratory distress. Breath sounds clear and equal bilaterally. No wheezes or rales. Abdominal: Abdomen soft, no rebound or guarding. Generalized tenderness to palpation. Musculoskeletal: No edema, tenderness or deformity noted. Skin: Warm and dry. No rash, erythema, pallor or cyanosis Psychiatric: Appropriate mood and affect for situation. Neurological: Alert and keenly responsive. CN II-XII grossly intact, moving all extremities equally and fully. MDM: - Vitals signs showed tachycardia and tachypnea. - History obtained via patient. Patient presents with diarrhea. Patient reports over the last week she has been having more than 25 episodes of loose watery stool a day. No fevers. Reports generalized abdominal pain. She has recently been on antibiotics. - Chronic conditions affecting care: DVT; HTN; HLD; hx of ovarian cancer - Differential diagnoses include, but are not limited to: Small bowel obstruction; C. difficile; colitis; diverticulitis; dehydration; electrolyte abnormality - Order placed for continuous cardiac monitoring. At this time, monitor showed rate of 77 bpm with normal sinus rhythm, per my interpretation. - External medical records reviewed. Discharge summary dated 09/10/2023 was reviewed. Patient was admitted to the hospital for small bowel obstruction. She was discharged on Augmentin twice daily for 4 days. - EKG interpreted by myself showed normal sinus rhythm. Rate 94 bpm. QT 326. No acute ischemic changes. - Laboratory workup interpreted by myself showed leukocytosis (WBC 46.41) with left shift; slight hyponatremia (Na 131); hyperkalemia (K 5.5); ZEFERINO (Cr 1.99); normal magnesium; normal lactate; normal procalcitonin - CT abdomen/pelvis with IV contrast showed severe thickening of the colon and rectum with pericolonic fat stranding consistent with proctocolitis. - Patient technically meets sepsis criteria. She was given 2 L NS for fluid resuscitation and 2g IV rocephin for antibiotic coverage. Of note, patient was out in the waiting room for 3 hours secondary to ER overcrowding before sepsis protocol orders were initiated by myself. - Discussion was had with healthcare or medical about patient's case and need for admission - Hospitalist consulted for admission. Expressed concern about potential C. difficile colitis. Dr. Menjivar ordered PO vancomycin for coverage while we await stool studies. - [facility] for further evaluation and management. ASSESSMENT AND PLAN: Diagnosis: diarrhea; leukocytosis; ZEFERINO; dehydration; colitis; hyperkalemia; abdominal pain Plan: admit Past Med/Surg History Medical History (Updated 10/10/23 @ 18:15 by Fela Garrido MD) Left knee pain Chronic gout Nausea Synovial cyst of popliteal space [Stoner], left knee Anemia Electrolyte abnormality Small bowel obstruction x3 (most recent 02/2021- medically managed), related to abdominal adhesions (multiple SBO) Iron deficiency anemia Medicare annual wellness visit, subsequent History of melanoma History of ovarian cancer Lung cancer Breast cancer Diarrhea Restless leg syndrome Low back pain Colon cancer Encounter for pre-operative examination Abnormal PET scan of lung Dyslipidemia Renal insufficiency Hx of multiple pulmonary nodules x3 nodules radiation treatments Fall 2021 Chronic anemia Bronchiectasis Thoracic back pain Frequent bowel movements Loperamide prn Dizziness Chronic issue, PCP aware/monitoring BCC (basal cell carcinoma) s/p excision per PCP records (left ankle) Hx of blood clots Hx LLE DVT r/t immobility after an injury to foot Breast cancer, left Hx (2020) Melanoma s/p excision per PCP records (right medial thigh) Hypertension Gout 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 2019) Surgical History (Updated 10/06/23 @ 00:09 by Glenn Armenta) History of hemicolectomy History of colon resection 02/05/2023 [place] [facility] [place] removed, tumor removal History of bronchoscopy 04/2022 at [facility] Hx of total hysterectomy with removal of both tubes and ovaries Hx of lumpectomy Left breast lumpectomy (no lymph node removal per patient - patient states there is no restrictions with the left arm) -also had radiation History of breast biopsy left H/O nephrolithotomy with removal of calculi 1971 History of esophagogastroduodenoscopy (EGD) History of colonoscopy Hx of tonsillectomy 1948 H/O melanoma excision Hx of cholecystectomy Family History Brother Family history of diabetes mellitus Other No family history of adverse response to anesthesia No pertinent family history Social History Smoking Status: Never smoker Second Hand Exposure: No; Do You Dip or Chew Tobacco: No; Hx Alcohol Use: No Hx Substance Use: No Preferred Language: Divehi Communication Ability: Effective Visual Impairment: No Limitations Hearing Ability: Normal Chef Instructor Required: No Beliefs That Will Affect Care: None marital status: Current Living Situation: Spouse current occupational status: retired current occupation: [employer] How many Children do You have: 4 Feels Safe at Home: Yes Childhood Exposure to Second-Hand Smoke: No caffeine: No Dental Care, Regularly: Yes Physical Activity Frequency: Other Physical Activity Frequency Comment: House work Seatbelt Use: sometimes Sunscreen Use: No Assistive Devices: None Allergies Allergies Allergy/AdvReac Type Severity Reaction Status Date / Time adhesive Allergy Intermediate rash, Verified 10/10/23 16:48 redness latex Allergy Intermediate Rash Verified 10/10/23 16:48 ciprofloxacin Allergy Unknown CAN'T Verified 10/10/23 16:48 REMEMBER tetracycline Allergy Unknown CAN'T Verified 10/10/23 16:48 REMEMBER lisinopril AdvReac Intermediate Cough Verified 10/10/23 16:48 Home Meds Home Medications Medication Instructions Recorded Confirmed cyanocobalamin (vitamin B-12) 1,000 mcg PO Q48H 05/23/19 10/10/23 1,000 mcg tablet vit C 250 mg-vit E 200 unit-zinc 1 tab PO BID 11/28/20 10/10/23 12.5 mg-copper 1 [id number] tablet (ICaps AREDS2 (copper citrate)) cholecalciferol (vitamin D3) 125 125 mcg PO QAM 09/07/23 10/10/23 mcg (5,000 unit) tablet (Vitamin D3) Previous Rx's Medication Instructions Recorded nitroglycerin 0.4 mg sublingual 0.4 mg sublingual Q5M PRN chest 09/05/21 tablet pain #20 tabs allopurinol 100 mg tablet 100 mg PO QAM #90 tabs 03/27/23 magnesium oxide 400 mg (241.3 mg 400 mg PO DAILY #7 tabs 09/10/23 magnesium) tablet triamterene 37.5 0.5 tab PO QAM #30 tabs 09/29/23 mg-hydrochlorothiazide 25 mg tablet Results & Data (ED) Vital Signs Vital Signs - 24 hr 10/10/23 11:34 10/10/23 15:05 10/10/23 16:37 Temperature 36.5 C Temperature Source Temporal Artery Scan Pulse Rate 105 H 77 Pulse Rate [Apical] 76 Pulse Rhythm Regular Respiratory Rate 26 H 16 Respiratory Effort / Characteristics Non-Labored Spontaneous Blood Pressure 124/64 Blood Pressure [Right Arm] 127/76 Blood Pressure Mean 84 Blood Pressure Mean [Right Arm] 93 Pulse Oximetry 97 99 Oxygen Delivery Method Room Air Room Air Sepsis Recent Fever Within 48 Hours No Sepsis New/Unexplained Change in Mental Status No Sepsis Action Taken by Nursing No Action Required Laboratory Data 10/10/23 12:50 10/10/23 12:50 Lab Results 10/10/23 10/10/23 Range/Units 12:50 16:48 WBC 46.41 H* (4.8-10.8) K/ul RBC 4.76 (4.20-5.40) M/uL Hgb 14.4 (12.0-16.0) g/dl Hct 42.6 (37.0-47.0) % MCV 89.5 (80.0-100.0) fL MCH 30.3 (25.0-34.0) pg MCHC 33.8 (32.0-36.0) g/dL RDW Std Deviation 48.7 H (36.4-46.3) fL RDW Coeff of [place] 14.7 H (11.5-14.5) % Plt Count 423 H (130-400) K/uL MPV 11.3 (9.4-12.4) fL Immature Gran % (Auto) 3.5 % Neut % (Auto) 90.7 % Lymph % (Auto) 1.7 % Spencer % (Auto) 4.1 % Eos % (Auto) 0.0 % Baso % (Auto) 0.0 % Neut # (Auto) 42.06 H (1.40-6.50) K/uL Lymph # (Auto) 0.77 L (1.20-3.40) K/uL Spencer # (Auto) 1.92 H (0.11-0.59) K/uL Eos # (Auto) 0.00 (0.00-0.50) K/uL Baso # (Auto) 0.02 (0.00-0.20) K/uL Immature Gran # (Auto) 1.64 H (0.01-0.20) K/uL Sodium 131 L (136-145) mmol/L Potassium 5.5 H (3.5-5.1) mmol/L Chloride 101 (98-107) mmol/L Carbon Dioxide 21 (21-32) mmol/L Anion Gap 9 (3-11) BUN 61 H (6-23) mg/dl Creatinine 1.99 H (0.6-1.2) mg/dl Est Cr Clr Drug Dosing Not Reportable Est GFR ( Amer) 25.7 ml/min Est GFR (Non-Af Amer) 22.2 ml/min BUN/Creatinine Ratio 30.7 H (10-20) Glucose 118 H (70-99(Fasting)) mg/dl Lactate 1.9 (0.4-2.0) mmol/L Calcium 10.9 H (8.6-10.3) mg/dl Magnesium 2.2 (1.7-2.4) mg/dl Total Bilirubin 0.8 (0.2-1.0) mg/dl AST 13 (13-39) U/L ALT 14 (7-52) U/L Alkaline Phosphatase 178 H (34-104) U/L Total Protein 5.6 L (6.0-8.3) gm/dl Albumin 3.0 L (3.4-5.0) gm/dl Globulin 2.6 (2.5-4.0) gm/dl Albumin/Globulin Ratio 1.2 (0.9-2) Procalcitonin 0.49 (0-0.5) ng/ml Administered Medications Discontinued Medications Sodium Chloride (Nss) 2,000 mls @ 999 mls/hr IV .Q2H1M ONE Stop: 10/10/23 16:08 Last Admin: 10/10/23 15:35 Dose: 999 mls/hr Documented By: ACC Ceftriaxone Sodium (Rocephin) 2,000 mg in 50 mls @ 100 mls/hr IV NOW STA Stop: 10/10/23 14:54 Last Infusion: 10/10/23 16:06 Dose: Infused Documented By: Admin: 10/10/23 15:34 Dose: 100 mls/hr Documented By: ACC Imaging Data Radiologist's Impression: Abdomen/Pelvis CT 10/10/23 12:[address] WITHOUT CONTRAST CT DOSE: 340.33 mGy.cm HISTORY: DIARRHEA X 1 WEEK TECHNIQUE: Multiaxial CT images of the abdomen and pelvis were performed without contrast. A dose lowering technique was utilized adhering to the principles of ALARA. COMPARISON STUDY: Abdomen and pelvis CT 09/07/2023. FINDINGS: There are few punctate calcified granulomas within the left lower lobe. Stable 5 mm subpleural nodule within the base the right lower lobe on image 28. No pneumoperitoneum. No pneumatosis. No acute fractures identified. Mild body wall edema. There is diffuse mesenteric edema with a small amount of ascites. This has progressed in the interval. The unenhanced liver, spleen, adrenal glands, and pancreas are unremarkable. Stable bilateral renal hypodense lesions. These favor cysts. No renal stones or hydronephrosis. 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 Prior cholecystectomy. Normal caliber abdominal aorta. No retroperitoneal or pelvic lymphadenopathy. No dilated loops of bowel to suggest an obstruction. Prior right hemicolectomy. Severe thickening of the colon and rectum with pericolonic fat stranding consistent with a nonspecific proctocolitis. This favors infectious/inflammatory process and could represent a C. difficile colitis. No perforation or abscess at this time. Gallbladder wall thickening which could be due to underdistention. Prior hysterectomy. Mild pelvic floor collapse. IMPRESSION: 1. Severe thickening of the colon and rectum with pericolonic fat stranding consistent with a nonspecific proctocolitis. This favors an infectious/inflammatory process and could represent a C. difficile colitis. 2. Body wall/mesenteric edema with a small amount of ascites. This has progressed. 3. Prior right hemicolectomy. 4. Additional findings as described above. ACT 112: Negative or not required by law. Electronically signed by: Jarrell Emery M.D. 10/10/2023 2:42 PM Discharge Plan Visit Data Chief Complaint: Diarrhea Stated Complaint: LOOSE BOWELS CRITICAL/DEHYDRATED - WEAK ED Provider: Fela Garrido Discharge Problem: Diarrhea, Abdominal pain, ZEFERINO (acute kidney injury), Leukocytosis, Acute hyperkalemia, Acute dehydration, Colitis Forms Stand Alone Forms: My [employer] Prescriptions Prescriptions: No Action nitroglycerin 0.4 mg tablet, sublingual 0.4 mg sublingual Q5M PRN (Reason: chest pain) Qty: 20 0RF Rx Instructions: do not exceed 3 doses per episode allopurinol 100 mg tablet 100 mg PO QAM Qty: 90 3RF cyanocobalamin (vitamin B-12) 1,000 mcg tablet 1,000 mcg PO Q48H ICaps AREDS2 (copper citrate) 250 mg-200 unit -12.5 mg-1 mg tablet 1 tab PO BID triamterene-hydrochlorothiazid 37.5-25 mg tablet 0.5 tab PO QAM Qty: 30 11RF Rx Instructions: PER PT "STOPPED FRIDAY D/T DIARRHEA, LOOSING TOO MUCH FLUID ALREADY, THOUGHT IT WOULD ONLY MAKE IT WORSE". cholecalciferol (vitamin D3) [Vitamin D3] 125 mcg (5,000 unit) Tablet 125 mcg PO QAM magnesium oxide 400 mg (241.3 mg magnesium) tablet 400 mg PO DAILY Qty: 7 0RF Rx Instructions: start 09/11 Referrals Referrals: Mikel Sanford MD [Primary Care Provider] -
--- NOTE | 2023-10-10 18:05 | History & Physical Report ---
Date of Service October 10, 2023 Assessment & Plan (1) Diarrhea: Plan: Fatigue, brain fog, and worsening diarrhea x 1 week Patient notes that the diarrhea started shortly after being discharged on Augmentin Hx of colon cancer, and SBO September Leukocytosis at 46.41 with a neutrophil predominance A/P CT revealed severe thickening of the colon with nonspecific proctocolitis; infectious/inflammatory process could represent C. difficile colitis Stool PCR ordered, pending C. difficile toxin gene positive, negative toxin Will continue C. difficile treatment despite negative Tox, given patient history, WBC count, and acute worsening of symptoms Blood cultures ordered, pending P.o. vancomycin given in the ED Rocephin given in the ED Contact precautions A.m. CBC, BMP (2) Burning with urination: Plan: Patient endorses burning with urination x 1 week UA ordered, pending Given leukocytosis, will cover patient with Rocephin 2000 mg IV daily for now Follow urine culture (3) ZEFERINO (acute kidney injury): Plan: BUN 61, Cr 1.99 (baseline 1.42), eGFR 22.2 BUN/creatinine elevated at 30.7; likely secondary to hypoperfusion of the kid neys due to GI losses Avoid nephrotoxic agents Hold triamtereneHCTZ (4) Acute dehydration: Plan: Plasma-Lyte for IVF at 80mL/hr x 3 (5) Acute hyperkalemia: Plan: K 5.5 on arrival Continuous telemetry monitoring Trend BMP (6) Leukocytosis: Plan: WBC 46.41 on arrival IV abx (as above) Daily CBC [facility]: [facility] Regular diet as tolerated VTE PPx: Heparin 5000u SQ q12h History of Present Illness Chief Complaint: Diarrhea Primary Care Provider: Mikel Sanford MD Zeina is an 88-year-old female with PMH of gout, TIA, dyslipidemia, DCIS of the left breast, stage I adenocarcinoma of the lung, colon cancer s/p R hemicolectomy, chronic diarrhea, lumbar radiculopathy, and mixed incontinence urge and stress. She presented for >20x episodes of worsening diarrhea over the past week. She notes that she has had approximately 7-8 episodes of diarrhea in the ED. She denies blood in her stool. She reports it is a yellow, liquidy consistency. She notes that she was checked at [facility] for C. difficile last week, and it was found to be negative. She did not take her regular morning medications today. No sick contacts. No supplemental oxygen use. She notes she has been taking prednisone recently for a popliteal cyst behind her left knee. Patient lives with her . She denies smoking, alcohol use. Other notable hx: right hemicolectomy on February 05, 2023 for colon cancer; SBO in August 2023, discharged on Augmentin x 4 days. Vitals stable at time of admission. ED course: Vancomycin 125 mg p.o. Rocephin 2000 mg IV NSS 2000 mL IV ROS: Patient endorses abdominal cramping, diarrhea, and mild burning with urination. Patient denies fever, chills, nightsweats, dizziness, lighthdeadness, SANTAMARIA, chest pain, cough, SOB, N/V, back pain, urinary s/s, dysuria, saddle anesthesia, or N/T in legs. Allergies Allergy/AdvReac Type Severity Reaction Status Date / Time adhesive Allergy Intermediate rash, Verified 10/10/23 16:48 redness latex Allergy Intermediate Rash Verified 10/10/23 16:48 ciprofloxacin Allergy Unknown CAN'T Verified 10/10/23 16:48 REMEMBER tetracycline Allergy Unknown CAN'T Verified 10/10/23 16:48 REMEMBER lisinopril AdvReac Intermediate Cough Verified 10/10/23 16:48 Home Medications Medication Instructions Recorded Confirmed Type cyanocobalamin (vitamin B-12) 1,000 mcg PO Q48H 05/23/19 10/10/23 History 1,000 mcg tablet vit C 250 mg-vit E 200 unit-zinc 1 tab PO BID 11/28/20 10/10/23 History 12.5 mg-copper 1 ed-dtb-elpufh tablet (ICaps AREDS2 (copper citrate)) nitroglycerin 0.4 mg sublingual 0.4 mg sublingual Q5M PRN chest 09/05/21 10/10/23 Rx tablet pain #20 tabs allopurinol 100 mg tablet 100 mg PO QAM #90 tabs 03/27/23 10/10/23 Rx cholecalciferol (vitamin D3) 125 125 mcg PO QAM 09/07/23 10/10/23 History mcg (5,000 unit) tablet (Vitamin D3) magnesium oxide 400 mg (241.3 mg 400 mg PO DAILY #7 tabs 09/10/23 10/10/23 Rx magnesium) tablet triamterene 37.5 0.5 tab PO QAM #30 tabs 09/29/23 10/10/23 Rx mg-hydrochlorothiazide 25 mg tablet Past Med/Surg History Medical History (Updated 10/10/23 @ 19:03 by Jarrell Winter PA-C) Left knee pain Chronic gout Nausea Synovial cyst of popliteal space [Stoner], left knee Anemia Electrolyte abnormality Small bowel obstruction x3 (most recent 02/2021- medically managed), related to abdominal adhesions (multiple SBO) Iron deficiency anemia Medicare annual wellness visit, subsequent History of melanoma History of ovarian cancer Lung cancer Breast cancer Diarrhea Restless leg syndrome Low back pain Colon cancer Encounter for pre-operative examination Abnormal PET scan of lung Dyslipidemia Renal insufficiency Hx of multiple pulmonary nodules x3 nodules radiation treatments Fall 2021 Chronic anemia Bronchiectasis Thoracic back pain Frequent bowel movements Loperamide prn Dizziness Chronic issue, PCP aware/monitoring BCC (basal cell carcinoma) s/p excision per PCP records (left ankle) Hx of blood clots Hx LLE DVT r/t immobility after an injury to foot Breast cancer, left Hx (2020) Melanoma s/p excision per PCP records (right medial thigh) Hypertension Gout 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 2019) Surgical History (Updated 10/06/23 @ 00:09 by Glenn Armenta) History of hemicolectomy History of colon resection 02/05/2023 [place] [facility] [place], tumor removal History of bronchoscopy 04/2022 at [facility] Hx of total hysterectomy with removal of both tubes and ovaries Hx of lumpectomy Left breast lumpectomy (no lymph node removal per patient - patient states there is no restrictions with the left arm) -also had radiation History of breast biopsy left H/O nephrolithotomy with removal of calculi 1971 History of esophagogastroduodenoscopy (EGD) History of colonoscopy Hx of tonsillectomy 1948 H/O melanoma excision Hx of cholecystectomy Family History Brother Family history of diabetes mellitus Other No family history of adverse response to anesthesia No pertinent family history Social History Smoking Status: Never smoker Second Hand Exposure: No; Do You Dip or Chew Tobacco: No; Hx Alcohol Use: No Hx Substance Use: No Preferred Language: Northern Irish Communication Ability: Effective Visual Impairment: No Limitations Hearing Ability: Normal Database Administration Associate Required: No Beliefs That Will Affect Care: None marital status: Current Living Situation: Spouse current occupational status: retired current occupation: [employer] How many Children do You have: 4 Feels Safe at Home: Yes Childhood Exposure to Second-Hand Smoke: No caffeine: No Dental Care, Regularly: Yes Physical Activity Frequency: Other Physical Activity Frequency Comment: House work Seatbelt Use: sometimes Sunscreen Use: No Assistive Devices: None Review of Systems Review of Systems: See HPI above Physical Exam Physical Exam: General: no acute distress; pleasant affect; non-toxic appearing; well- nourished; cooperative HEENT: normocephalic, atraumatic; no scleral icterus; PERRLA w/ EOMs intact; moist mucus membrane; vision and hearing grossly intact Neck: supple; no JVD; no lymphadenopathy; trachea midline Skin: warm, dry without signs of tenting; no cyanosis; no rashes, bruising, lesions, or erythema noted CV: chest wall NTP; RRR; S1/S2 normal; no murmurs/rubs/gallops; pulses intact and symmetric at radial, DP, and PT Lungs: no acute respiratory distress; symmetrical chest wall expansion; clear breath sounds across all lung cook w/o adventitious sounds; no wheezing ABD: Soft; RLQ TTP where patient had prior hemicolectomy; BS present; small ascites; mild distention; no signs of rashes, bruising, or active bleeding MSK: no tics or fasciculations; nonpitting edema noted in the LEs b/l, nonerythematous Neuro: A&Ox3; normal mood and affect; fluent speech; no focal deficits; sensation grossly intact in the LEs b/l Results & Data Results & Data Vital Signs (Past 12 Hours) Vital Signs Temp Pulse Pulse Resp BP BP Pulse Ox 10/10/23 16:37 77 10/10/23 15:05 76 16 127/76 99 10/10/23 11:34 36.5 C 105 H 26 H 124/64 97 O2 Del Method 02/16/24 16:37 10/10/23 15:05 Room Air 10/10/23 11:34 Room Air Laboratory Results Abnormal lab results 10/10/23 Range/Units 12:50 WBC 46.41 H* (4.8-10.8) K/ul RDW Std Deviation 48.7 H (36.4-46.3) fL RDW Coeff of [place] 14.7 H (11.5-14.5) % Plt Count 423 H (130-400) K/uL Neut # (Auto) 42.06 H (1.40-6.50) K/uL Lymph # (Auto) 0.77 L (1.20-3.40) K/uL Christian # (Auto) 1.92 H (0.11-0.59) K/uL Immature Gran # (Auto) 1.64 H (0.01-0.20) K/uL Sodium 131 L (136-145) mmol/L Potassium 5.5 H (3.5-5.1) mmol/L BUN 61 H (6-23) mg/dl Creatinine 1.99 H (0.6-1.2) mg/dl BUN/Creatinine Ratio 30.7 H (10-20) Glucose 118 H (70-99(Fasting)) mg/dl Calcium 10.9 H (8.6-10.3) mg/dl Alkaline Phosphatase 178 H (34-104) U/L Total Protein 5.6 L (6.0-8.3) gm/dl Albumin 3.0 L (3.4-5.0) gm/dl Diagnostic Findings Abdomen/Pelvis CT 10/10/23 12:[address] WITHOUT CONTRAST CT DOSE: 340.33 mGy.cm HISTORY: DIARRHEA X 1 WEEK TECHNIQUE: Multiaxial CT images of the abdomen and pelvis were performed without contrast. A dose lowering technique was utilized adhering to the principles of ALARA. COMPARISON STUDY: Abdomen and pelvis CT 09/07/2023. FINDINGS: There are few punctate calcified granulomas within the left lower lobe. Stable 5 mm subpleural nodule within the base the right lower lobe on image 28. No pneumoperitoneum. No pneumatosis. No acute fractures identified. Mild body wall edema. There is diffuse mesenteric edema with a small amount of ascites. This has progressed in the interval. The unenhanced liver, spleen, adrenal glands, and pancreas are unremarkable. Stable bilateral renal hypodense lesions. These favor cysts. No renal stones or hydronephrosis. 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 Prior cholecystectomy. Normal caliber abdominal aorta. No retroperitoneal or pelvic lymphadenopathy. No dilated loops of bowel to suggest an obstruction. Prior right hemicolectomy. Severe thickening of the colon and rectum with pericolonic fat stranding consistent with a nonspecific proctocolitis. This favors infectious/inflammatory process and could represent a C. difficile colitis. No perforation or abscess at this time. Gallbladder wall thickening which could be due to underdistention. Prior hysterectomy. Mild pelvic floor collapse. IMPRESSION: 1. Severe thickening of the colon and rectum with pericolonic fat stranding consistent with a nonspecific proctocolitis. This favors an infectious/inflammatory process and could represent a C. difficile colitis. 2. Body wall/mesenteric edema with a small amount of ascites. This has progressed. 3. Prior right hemicolectomy. 4. Additional findings as described above. ACT 112: Negative or not required by law. Electronically signed by: Jarrell Emery M.D. 10/10/2023 2:42 PM Code Status & VTE Plan Code Status Full code VTE Prophylaxis Plan VTE Prophylaxis will be ordered: Yes Supervising Physician Co-Signing Physician Notes Tend patient seen and examined, chart reviewed, case discussed with Jarrell Winter, and I agree with the assessment and plan as above except as otherwise noted Labs and images reviewed patient is an 88-year-old female recently on Augmentin in August with history of small bowel obstruction, colon cancer s/p right hemicolectomy, DCIS of left breast with adenocarcinoma of the lung, and recently on Augmentin who presents with severe diarrhea constantly throughout the day and liquid in quality without blood/melena. On ER eval ration she has an acute leukocytosis of 46 w/ left shift new since beginning of the month, CTA/P so severe thickening of the colon and rectum consistent with colitis without megacolon. Patient's prior C. difficile testing was negative, stool bio fire on admission is with C. difficile positive gene negative toxin and otherwise negative. Given strong clinical presentation consistent with severe C. difficile despite negative toxin recommend continuing antibiotic treatment with vancomycin p.o. Given procalcitonin is negative and she is not septic/toxic at the bedside. He did receive 1 dose of empiric ceftriaxone while in the ER for coverage of GI pathogens while C. difficile was pending, will defer additional continue to follow blood cultures. Potassium 5.5 on admission, received 2 L of IV fluids and recheck is pending. No peaked T waves, EKG normal sinus without ischemic change. PG Care Time/CCT Total # of Minutes Spent Total Time Spent with Patient: Total time spent is greater than 50% in coordination of care (as documented) at patient's floor/unit and/or counseling patient: Coding [place] [address] INT INP/OBS CARE 3/75MIN Patient Type Established History Comprehensive Exam Comprehensive Medical Decision Making High Complexity Diagnoses Diarrhea R19.7 Burning with urination R30.0 ZEFERINO (acute kidney injury) N17.9 Acute dehydration E86.0 Acute hyperkalemia E87.5 Leukocytosis D72.829
[2023-10-10 18:24] LABS: Adenovirus F 40/41 PCR Not Detected (NotDetected); Astrovirus PCR Not Detected (NotDetected); Campylobacter PCR Not Detected (NotDetected); Cryptosporidium PCR Not Detected (NotDetected); Cyclospora cayetanensis PCR Not Detected (NotDetected); Entamoeba histolytica PCR Not Detected (NotDetected); Enteroaggregative E.coli(EAEC) Not Detected (NotDetected); Enteropathogenic E.coli (EPEC) Not Detected (NotDetected); Enterotoxigenic E.coli (ETEC) Not Detected (NotDetected); Giardia lamblia PCR Not Detected (NotDetected); Norovirus GI/GII PCR Not Detected (NotDetected); Plesiomonas shigelloides PCR Not Detected (NotDetected); Rotavirus A PCR Not Detected (NotDetected); Salmonella PCR Not Detected (NotDetected); Sapovirus PCR Not Detected (NotDetected); Shiga-like Toxin E.coli (STEC) Not Detected (NotDetected); Shigella/Enteroinvasive E.coli Not Detected (NotDetected); Vibrio cholerae PCR Not Detected (NotDetected); Vibrio species PCR Not Detected (NotDetected); Yersinia enterocolitica PCR Not Detected (NotDetected)
[2023-10-10 18:40] LABS: Cdiff Toxin B Gene (2yr or >) Positive Cdiff Gene (Neg)
[2023-10-10 18:41] LABS: Cdiff Antigen Negative; Cdiff Toxin A+B Negative Cdiff Toxin (Negative)
[2023-10-10] MEDS: CHERRY SYRUP 5 ML UDP PO SCH (20:21)
[2023-10-10] MEDS: VANCOMYCIN HCL 125 MG/2.5ML SOLN PO SCH (20:22)
[2023-10-10] MEDS: PLASMA-LYTE A 1,000 ML IV SCH (20:25)
[2023-10-10] MEDS ORDERED: ACETAMINOPHEN 325 MG TAB PO PRN (20:53)
[2023-10-10] MEDS ORDERED: ONDANSETRON INJ 2 MG/ML 2 ML VIAL IV PRN (20:53)
[2023-10-10] MEDS: HEPARIN SOD 5,000 UNIT/0.5 ML VIAL SQ SCH (22:51)
[2023-10-10 23:26] LABS: BUN Creatinine Ratio 33.1 (10-20); Calcium 9.4 mg/dl (8.6-10.3); Creatinine Clr Calc Pharmacy 16.9 ml/min; Est GFR (African American) 30.7 ml/min; Est GFR (Non-African American) 26.5 ml/min; Potassium 5.1 mmol/L (3.5-5.1)
[2023-10-11 06:32] LABS: Hematocrit (blood only) 38.8 % (37.0-47.0); Hemoglobin 12.4 g/dl (12.0-16.0); Mean Corpuscular Hemoglobin 29.2 pg (25.0-34.0); Mean Corpuscular Volume 91.3 fL (80.0-100.0); Mean Platelet Volume 11.2 fL (9.4-12.4); Platelet Count 318 K/uL (130-400); RDW Coefficient of Variation 14.7 % (11.5-14.5); RDW Standard Deviation 49.3 fL (36.4-46.3); Red Blood Count 4.25 M/uL (4.20-5.40); White Blood Count 37.09 K/ul (4.8-10.8)
[2023-10-11 06:42] LABS: BUN Creatinine Ratio 34.4 (10-20); Calcium 9.8 mg/dl (8.6-10.3); Creatinine Clr Calc Pharmacy 17.8 ml/min; Est GFR (African American) 32.7 ml/min; Est GFR (Non-African American) 28.2 ml/min; Potassium 4.6 mmol/L (3.5-5.1)
[2023-10-11 06:51] LABS: Basophils # (auto) 0.01 K/uL (0.00-0.20); Immature Granulocytes # (auto) 1.32 K/uL (0.01-0.20); Immature Granulocytes % (auto) 3.6 %; Lymphocytes # (auto) 1.06 K/uL (1.20-3.40); Lymphocytes % (auto) 2.9 %; Monocytes # (auto) 1.39 K/uL (0.11-0.59); Monocytes % (auto) 3.7 %; Neutrophils # (auto) 33.31 K/uL (1.40-6.50); Neutrophils % (auto) 89.8 %
[2023-10-11] MEDS: allopurinoL 100 MG TAB PO SCH (07:38)
[2023-10-11] MEDS: MAGNESIUM OXIDE 400 MG TAB PO SCH (07:38)
[2023-10-11] MEDS: cefTRIAXone SODIUM 1,000 MG in DEXTROSE 5 % MINI-B 50 ML IV SCH (15:06)
--- NOTE | 2023-10-11 16:07 | Hospitalist Progress Note ---
Date of Service October 11, 2023 Assessment & Plan (1) C. difficile colitis: Plan: P/w malaise and severe diarrhea x 1-2 weeks Patient notes that the diarrhea started shortly after being discharged on Augmentin Hx of colon cancer, and SBO September Leukocytosis at 46.41 with a neutrophil predominance A/P CT revealed severe thickening of the colon with nonspecific proctocolitis Stool PCR negative but C. difficile toxin gene positive, negative toxin Treating for C. diff colitis given overall clinical picture quite consistent with such Continue po Vanco 125mg po qid x 14 day course given this is her second occurrence of C. diff colitis Blood cultures -NGTD Continue IVFs for hydration until taking adequate po intake Follow CBC, BMP, Mag Trial of cholestyramine to help with diarrhea (2) ZEFERINO (acute kidney injury): Plan: Cr 1.99 (baseline 1.42) on admission, prerenal from GI losses in setting of taking Dyazide as outpt Improving with IVF hydration, hold Dyazide Avoid nephrotoxic agents Follow BMP (3) Acute hyperkalemia: Plan: K 5.5 on arrival, secondary to ZEFERINO and traimterene use, now resolved with IVF hydration, holding Dyazide Trend BMP COntinue IVFs (4) Benign essential hypertension: Plan: BPs normal hold Dyazide (5) Burning with urination: Plan: Patient endorses burning with urination x 1 week UA ordered, not yet collected Was given Rocephin IV but will now hold until UA collected although UA will not likely be accurate Regardless, received 2 doses of ceftriaxone which is just about adequate for simple cystitis Avoid further abx use with C. diff colitis Follow urine culture (6) Gout: Plan Disposition: continued stay on Med telemetry Full code VTE PPx: Heparin 5000u SQ q12h discussed care with and daughter at bedside Admission and Anticipated Discharge Date Admission Date: October 10, 2023 Subjective Pt still having frequent loose stools but have slowed down slightly since admission, has mild lower abd pain. No nausea and is eating. Does not drink much on a regular basis-family says it will take her all day to drink the 550mL water mug provided. Physical Exam Constitutional: WD/WN, vitals as above Respiratory: normal respiratory effort, lungs clear to auscultation Cardiovascular: RRR, no murmur, no edema Gastrointestinal (Abdomen): normal bowel sounds, soft, nontender, no hepatosplenomegaly Neurologic: PERRL, EOMI, accommodation nl, no face palsy, no dysarthria Psychiatric: A+Ox3, euthymic affect Results & Data Results & Data Vital Signs (Past 12 Hours) Vital Signs Temp Pulse Pulse Resp BP Pulse Ox Pulse Ox 10/11/23 15:43 36.4 C L 79 18 104/49 L 96 10/11/23 14:26 36.4 C L 69 18 113/48 L 97 10/11/23 07:44 99 10/11/23 07:43 74 20 132/73 99 10/11/23 07:08 62 O2 Del Method O2 Del Method 10/11/23 15:43 Room Air 10/11/23 14:26 Room Air 10/11/23 07:44 Room Air 10/11/23 07:43 Room Air 10/11/23 07:08 Laboratory Results CBC, BMP, Stool PCR, C. diff, procal reviewed PG Care Time/CCT Total # of Minutes Spent Total Time Spent with Patient: Total time spent is greater than 50% in coordination of care (as documented) at patient's floor/unit and/or counseling patient: Coding Level of Care Code 15415 SUB INP/OBS CARE 2/35MIN Diagnoses C. difficile colitis A04.72 ZEFERINO (acute kidney injury) N17.9 Acute hyperkalemia E87.5 Benign essential hypertension I10 Burning with urination R30.0 Gout M10.9
[2023-10-11] MEDS: CHOLESTYRAMINE LIGHT 4 GM PKT PO SCH (18:12)
[2023-10-11 23:43] LABS: Appearance Urine Clear (Clear); Bacteria Urine Automated Negative (Negative); Bilirubin Urine Negative (Negative); Blood Urine Negative (Negative); Color Urine Yellow; Epithelial Cell Urine Auto 20-30 /lpf (0-5); Glucose Urine UA Negative (Negative); Ketones Urine Negative (Negative); Leukocyte Esterase Urine Negative (Negative); Nitrite Urine Negative (Negative); Protein Urine Trace (Negative); Specific Gravity Urine 1.022 (1.000-1.030); Urobilinogen Urine Negative (Negative)
[2023-10-12 08:29] LABS: Basophils # (auto) 0.06 K/uL (0.00-0.20); Basophils % (auto) 0.3 %; Eosinophils # (auto) 0.04 K/uL (0.00-0.50); Eosinophils % (auto) 0.2 %; Hematocrit (blood only) 35.4 % (37.0-47.0); Hemoglobin 11.6 g/dl (12.0-16.0); Immature Granulocytes # (auto) 0.56 K/uL (0.01-0.20); Immature Granulocytes % (auto) 2.6 %; Lymphocytes # (auto) 1.02 K/uL (1.20-3.40); Lymphocytes % (auto) 4.8 %; Mean Corpuscular Hemoglobin 29.5 pg (25.0-34.0); Mean Corpuscular Hgb Conc 32.8 g/dL (32.0-36.0); Mean Corpuscular Volume 90.1 fL (80.0-100.0); Monocytes # (auto) 1.16 K/uL (0.11-0.59); Monocytes % (auto) 5.4 %; Neutrophils # (auto) 18.48 K/uL (1.40-6.50); Neutrophils % (auto) 86.7 %; Platelet Count 353 K/uL (130-400); RDW Coefficient of Variation 14.7 % (11.5-14.5); RDW Standard Deviation 48.6 fL (36.4-46.3); Red Blood Count 3.93 M/uL (4.20-5.40); White Blood Count 21.32 K/ul (4.8-10.8)
[2023-10-12 08:43] LABS: BUN Creatinine Ratio 31.1 (10-20); Calcium 9.6 mg/dl (8.6-10.3); Creatinine Clr Calc Pharmacy 21.5 ml/min; Est GFR (African American) 41.1 ml/min; Est GFR (Non-African American) 35.5 ml/min; Magnesium 2.4 mg/dl (1.7-2.4); Potassium 4.4 mmol/L (3.5-5.1)
[2023-10-12] MEDS ORDERED: Nursing to Pharmacy Communication SCH (10:00)
--- NOTE | 2023-10-12 14:34 | Hospitalist Progress Note ---
Date of Service October 12, 2023 Assessment & Plan (1) C. difficile colitis: Plan: P/w malaise and severe diarrhea x 1-2 weeks Patient notes that the diarrhea started shortly after being discharged on Augmentin Hx of colon cancer, and SBO September Leukocytosis at 46.41 with a neutrophil predominance A/P CT revealed severe thickening of the colon with nonspecific proctocolitis Stool PCR negative but C. difficile toxin gene positive, negative toxin Still with a lot of diarrhea, but WBC count down to 21k, ZEFERINO improving She did not like the cholestyramine and thinks it made her diarrhea worse-will stop Treating for C. diff colitis given overall clinical picture quite consistent with such Continue po Vanco 125mg po qid x 14 day course given this is her second occurrence of C. diff colitis Blood cultures -NGTD Continue IVFs for hydration until taking adequate po intake Follow CBC, BMP, Mag (2) ZEFERINO (acute kidney injury): Plan: Cr 1.99 (baseline 1.42) on admission, prerenal from GI losses in setting of taking Dyazide as outpt Improving with IVF hydration, holding Dyazide Career Services Manager down to 1.3, Na+ still mildly low at 132 Avoid nephrotoxic agents Follow BMP (3) Acute hyperkalemia: Plan: K 5.5 on arrival, secondary to ZEFERINO and traimterene use, now resolved with IVF hydration, holding Dyazide Trend BMP COntinue IVFs (4) Benign essential hypertension: Plan: BPs normal hold Dyazide (5) Burning with urination: Plan: Patient endorses burning with urination x 1 week UA contaminated with epis Was given Rocephin IV but will not give any further abx Avoid further abx use with C. diff colitis (6) Gout: Plan: continue home allopurinol Plan Disposition: continued stay on Med telemetry Full code VTE PPx: Heparin 5000u SQ q12h Admission and Anticipated Discharge Date Admission Date: October 10, 2023 Subjective Pt continues to have multiple episodes of diarrhea throughout the day Some abd pain prior to having a BM. Not lightheaded. Is eating but doesn't like to drink much-drank 250mL of water by 3:00 PM today No other concerns Physical Exam Constitutional: WD/WN, vitals as above Respiratory: normal respiratory effort, lungs clear to auscultation Cardiovascular: Rate/Rhythm: regular rate and regular rhythm Extremities: + edema (1+ pitting edmea legs L>R) Gastrointestinal (Abdomen): Inspection/Auscultation: normal bowel sounds; abdomen not distended Percussion/Palpation: + abdomen tender (mild in RLQ without guarding or rebound) and abdomen soft Psychiatric: A+Ox3, euthymic affect Results & Data Results & Data Vital Signs (Past 12 Hours) Vital Signs Temp Pulse Pulse Resp BP Pulse Ox O2 Del Method 10/12/23 11:27 36.4 C L 68 18 129/73 100 Room Air 10/12/23 07:36 36.4 C L 63 18 115/66 98 Room Air 10/12/23 07:06 77 10/12/23 03:18 36.3 C L 62 18 100/63 99 Room Air Laboratory Results CBC, BMP, magnesium reviewed PG Care Time/CCT Total # of Minutes Spent Total Time Spent with Patient: Total time spent is greater than 50% in coordination of care (as documented) at patient's floor/unit and/or counseling patient: Coding Level of Care Code 62806 SUB INP/OBS CARE 2/35MIN Diagnoses C. difficile colitis A04.72 ZEFERINO (acute kidney injury) N17.9 Acute hyperkalemia E87.5 Benign essential hypertension I10 Burning with urination R30.0 Gout M10.9
[2023-10-13 09:49] LABS: Basophils # (auto) 0.05 K/uL (0.00-0.20); Basophils % (auto) 0.3 %; Eosinophils # (auto) 0.03 K/uL (0.00-0.50); Eosinophils % (auto) 0.2 %; Hematocrit (blood only) 35.6 % (37.0-47.0); Hemoglobin 11.3 g/dl (12.0-16.0); Immature Granulocytes # (auto) 0.35 K/uL (0.01-0.20); Immature Granulocytes % (auto) 2.4 %; Lymphocytes # (auto) 1.06 K/uL (1.20-3.40); Lymphocytes % (auto) 7.2 %; Mean Corpuscular Hemoglobin 28.6 pg (25.0-34.0); Mean Corpuscular Hgb Conc 31.7 g/dL (32.0-36.0); Mean Corpuscular Volume 90.1 fL (80.0-100.0); Mean Platelet Volume 11.4 fL (9.4-12.4); Monocytes # (auto) 0.73 K/uL (0.11-0.59); Neutrophils # (auto) 12.42 K/uL (1.40-6.50); Neutrophils % (auto) 84.9 %; Platelet Count 330 K/uL (130-400); RDW Coefficient of Variation 14.6 % (11.5-14.5); RDW Standard Deviation 48.3 fL (36.4-46.3); Red Blood Count 3.95 M/uL (4.20-5.40); White Blood Count 14.64 K/ul (4.8-10.8)
[2023-10-13 10:09] LABS: BUN Creatinine Ratio 23.2 (10-20); Calcium 9.3 mg/dl (8.6-10.3); Creatinine Clr Calc Pharmacy 18.7 ml/min; Est GFR (African American) 34.8 ml/min; Magnesium 2.1 mg/dl (1.7-2.4); Potassium 4.2 mmol/L (3.5-5.1)
[2023-10-13] MEDS: PSYLLIUM or GUAR GUM FIBER POWDER PACKET PO SCH (10:44)
--- NOTE | 2023-10-13 17:22 | Hospitalist Progress Note ---
Date of Service October 13, 2023 Assessment & Plan (1) C. difficile colitis: Plan: White blood cell count continues to improve. Metamucil added twice daily to add bulk and decreased frequency of stools. Continue oral vancomycin for 2 weeks total. (2) ZEFERINO (acute kidney injury): Plan: On chronic kidney disease stage III. Creatinine has improved to baseline. IV fluids taper down. Monitor intake and output. Serial labs. Diuretic is on hold (3) Acute hyperkalemia: Plan: Resolved. Serial labs (4) Benign essential hypertension: Plan: Stable. Continue current medical management. Diuretic is on hold (5) Burning with urination: Plan: Resolved. No evidence of UTI. Plan Hopeful discharge to home within the next day or 2 Admission and Anticipated Discharge Date Admission Date: October 10, 2023 Subjective Alert and oriented. No acute problems. White blood cell count continues to improve down to 14,000. IV fluids taper down to 60 cc/h. Will add scheduled Metamucil twice daily to increase stool bulk and decrease frequency of diarrhea. Creatinine improved to 1.5 which is her baseline with chronic kidney disease stage III. Potassium corrected to 4.2. Physical therapy evaluation recommends eventual discharge to home. Hopefully this can be done within the next day or 2. Review of Systems 2 Review of Systems: Constitutional-no fever or chills ENT-no blurred vision, no double vision, no epistaxis, no sore throat Respiratory-no cough, no wheezing, no shortness of breath Cardiac-no palpitations, no chest pain, no syncope GI-no nausea, vomiting, melena, hematochezia. Watery diarrhea from C. difficile enteritis -no urinary retention, no urinary incontinence, no dysuria, no hematuria Musculoskeletal-no joint pain, no muscle tenderness Skin-no bruising, no rashes, no pruritus Neuro-no isolated weakness, no paresthesia, no weakness Psych-no depression, no anxiety Physical Exam 2 Physical Exam: General-alert and oriented x3, no fever, no chills HEENT-head atraumatic and normocephalic, pupils equal and reactive to light, extraocular muscles intact Neck-no lymphadenopathy or thyromegaly, trachea midline Chest-clear to auscultation. No rales, wheezing or rhonchi Cardiac-regular rate and rhythm, normal S1 and S2 Abdomen-normal bowel sounds, nontender, no hepatosplenomegaly Extremities-no cyanosis, clubbing, or edema Neuro-cranial nerves II through XII intact, motor and sensory function within normal limits, strength symmetrical, no focal deficits Psych-normal affect, normal mood Results & Data Results & Data Vital Signs (Past 12 Hours) Vital Signs Temp Pulse Pulse Resp BP BP Pulse Ox 10/13/23 15:31 36.5 C 70 18 116/69 100 10/13/23 14:50 88 10/13/23 12:28 36.6 C 65 18 113/70 100 10/13/23 09:10 10/13/23 08:22 36.2 C L 65 18 117/66 98 10/13/23 07:00 57 L O2 Del Method O2 Del Method 10/13/23 15:31 Room Air 10/13/23 14:50 10/13/23 12:28 Room Air 10/13/23 09:10 Room Air 10/13/23 08:22 Room Air 10/13/23 07:00 Laboratory Results 10/13/23 09:20 10/13/23 09:20 PG Care Time/CCT Total # of Minutes Spent Total Time Spent with Patient: Total time spent is greater than 50% in coordination of care (as documented) at patient's floor/unit and/or counseling patient: Coding Level of Care Code 73523 SUB INP/OBS CARE 3/50MIN Diagnoses C. difficile colitis A04.72 ZEFERINO (acute kidney injury) N17.9 Acute hyperkalemia E87.5 Benign essential hypertension I10 Burning with urination R30.0
[2023-10-13] MEDS: SODIUM CHLORIDE 0.9% 1,000 ML IV SCH (18:12)
[2023-10-14 09:31] LABS: Basophils # (auto) 0.05 K/uL (0.00-0.20); Basophils % (auto) 0.3 %; Eosinophils # (auto) 0.08 K/uL (0.00-0.50); Eosinophils % (auto) 0.5 %; Hematocrit (blood only) 34.5 % (37.0-47.0); Hemoglobin 11.3 g/dl (12.0-16.0); Immature Granulocytes # (auto) 0.36 K/uL (0.01-0.20); Immature Granulocytes % (auto) 2.4 %; Lymphocytes # (auto) 0.95 K/uL (1.20-3.40); Lymphocytes % (auto) 6.2 %; Mean Corpuscular Hemoglobin 29.3 pg (25.0-34.0); Mean Corpuscular Hgb Conc 32.8 g/dL (32.0-36.0); Mean Corpuscular Volume 89.4 fL (80.0-100.0); Mean Platelet Volume 10.9 fL (9.4-12.4); Monocytes # (auto) 0.88 K/uL (0.11-0.59); Monocytes % (auto) 5.8 %; Neutrophils % (auto) 84.8 %; Platelet Count 343 K/uL (130-400); RDW Coefficient of Variation 14.7 % (11.5-14.5); RDW Standard Deviation 47.3 fL (36.4-46.3); Red Blood Count 3.86 M/uL (4.20-5.40); White Blood Count 15.22 K/ul (4.8-10.8)
[2023-10-14 09:41] LABS: Calcium 9.3 mg/dl (8.6-10.3)
[2023-10-14 09:46] LABS: BUN Creatinine Ratio 26.5 (10-20); Est GFR (African American) 42.2 ml/min; Est GFR (Non-African American) 36.4 ml/min
[2023-10-14] MEDS: hydroCHLOROthiazide 25 MG TAB PO SCH (10:19)
--- NOTE | 2023-10-14 14:26 | Hospitalist Progress Note ---
Date of Service October 14, 2023 Assessment & Plan (1) C. difficile colitis: Plan: White blood cell count has improved from admission. Oral vancomycin day 4 of 10. Metamucil has been added twice daily to add bulk and decreased frequency of stools. Continue oral vancomycin for 10 days total. (2) ZEFERINO (acute kidney injury): Plan: On chronic kidney disease stage III. Creatinine has improved to baseline. IV fluids have now been discontinued. Monitor intake and output. Serial labs. Hydrochlorothiazide has been restarted. Will avoid triamterene due to hyperkalemia present on admission (3) Acute hyperkalemia: Plan: Resolved. Serial labs (4) Benign essential hypertension: Plan: Stable. Continue current medical management. Hydrochlorothiazide has been restarted (5) Burning with urination: Plan: Resolved. No evidence of UTI. Plan Hopeful discharge to home tomorrow, October 15, on oral vancomycin to complete a 10-day course Admission and Anticipated Discharge Date Admission Date: October 10, 2023 Subjective Alert and oriented. No distress. Potassium stable at 4.0. White blood cell count 15,000. Hydrochlorothiazide has been restarted without triamterene. She is off IV fluids. Hopefully home tomorrow, October 15 Review of Systems 2 Review of Systems: Constitutional-no fever or chills ENT-no blurred vision, no double vision, no epistaxis, no sore throat Respiratory-no cough, no wheezing, no shortness of breath Cardiac-no palpitations, no chest pain, no syncope GI-no nausea, vomiting, melena, hematochezia. Watery diarrhea from C. difficile enteritis -no urinary retention, no urinary incontinence, no dysuria, no hematuria Musculoskeletal-no joint pain, no muscle tenderness. Chronic bilateral lower extremity venous stasis changes and edema Skin-no bruising, no rashes, no pruritus Neuro-no isolated weakness, no paresthesia, no weakness Psych-no depression, no anxiety Physical Exam 2 Physical Exam: General-alert and oriented x3, no fever, no chills HEENT-head atraumatic and normocephalic, pupils equal and reactive to light, extraocular muscles intact Neck-no lymphadenopathy or thyromegaly, trachea midline Chest-clear to auscultation. No rales, wheezing or rhonchi Cardiac-regular rate and rhythm, normal S1 and S2 Abdomen-normal bowel sounds, nontender, no hepatosplenomegaly Extremities-no cyanosis, clubbing. Chronic bilateral lower extremity venous stasis changes and edema Neuro-cranial nerves II through XII intact, motor and sensory function within normal limits, strength symmetrical, no focal deficits Psych-normal affect, normal mood Results & Data Results & Data Vital Signs (Past 12 Hours) Vital Signs Temp Pulse Pulse Resp BP Pulse Ox O2 Del Method 10/14/23 11:17 36.4 C L 80 18 125/62 97 Room Air 10/14/23 07:25 36.2 C L 72 18 124/71 97 Room Air 10/14/23 07:00 63 10/14/23 03:16 36.2 C L 71 18 110/60 97 Room Air Laboratory Results 10/14/23 09:10 10/14/23 09:10 PG Care Time/CCT Total # of Minutes Spent Total Time Spent with Patient: Total time spent is greater than 50% in coordination of care (as documented) at patient's floor/unit and/or counseling patient: Coding Level of Care Code 73551 SUB INP/OBS CARE 3/50MIN Diagnoses C. difficile colitis A04.72 ZEFERINO (acute kidney injury) N17.9 Acute hyperkalemia E87.5 Benign essential hypertension I10 Burning with urination R30.0
[2023-10-15 06:16] LABS: Basophils # (auto) 0.05 K/uL (0.00-0.20); Basophils % (auto) 0.3 %; Eosinophils # (auto) 0.15 K/uL (0.00-0.50); Eosinophils % (auto) 0.9 %; Hematocrit (blood only) 36.6 % (37.0-47.0); Hemoglobin 11.9 g/dl (12.0-16.0); Immature Granulocytes # (auto) 0.36 K/uL (0.01-0.20); Immature Granulocytes % (auto) 2.1 %; Lymphocytes # (auto) 1.15 K/uL (1.20-3.40); Lymphocytes % (auto) 6.6 %; Mean Corpuscular Hemoglobin 28.9 pg (25.0-34.0); Mean Corpuscular Hgb Conc 32.5 g/dL (32.0-36.0); Mean Corpuscular Volume 88.8 fL (80.0-100.0); Mean Platelet Volume 11.6 fL (9.4-12.4); Monocytes # (auto) 1.02 K/uL (0.11-0.59); Monocytes % (auto) 5.8 %; Neutrophils # (auto) 14.81 K/uL (1.40-6.50); Neutrophils % (auto) 84.3 %; Platelet Count 351 K/uL (130-400); RDW Coefficient of Variation 14.7 % (11.5-14.5); RDW Standard Deviation 47.4 fL (36.4-46.3); Red Blood Count 4.12 M/uL (4.20-5.40); White Blood Count 17.54 K/ul (4.8-10.8)
[2023-10-15 06:20] LABS: BUN Creatinine Ratio 23.1 (10-20); Calcium 9.9 mg/dl (8.6-10.3); Creatinine Clr Calc Pharmacy 18.6 ml/min; Est GFR (African American) 34.5 ml/min; Est GFR (Non-African American) 29.8 ml/min; Potassium 4.6 mmol/L (3.5-5.1)
[2023-10-15] MEDS: DIPHENOXYLATE/ATROPINE 2.5/0.025MG TAB PO ONE (13:16)
[2023-10-15] MEDS: PSYLLIUM or GUAR GUM FIBER POWDER PACKET PO SCH (13:16)
--- NOTE | 2023-10-15 15:45 | Hospitalist Progress Note ---
Date of Service October 15, 2023 Assessment & Plan (1) C. difficile colitis: Plan: White blood cell count has improved from admission but remains mildly elevated. Oral vancomycin day 5 of 10. Metamucil uptitrated today to 3 times daily and Lomotil added to decrease frequency of bowel movements. Continue oral vancomycin for 10 days total. (2) ZEFERINO (acute kidney injury): Plan: On chronic kidney disease stage III. Creatinine has improved to baseline. IV fluids have been discontinued. Monitor intake and output. Serial labs. Hydrochlorothiazide has been restarted. Will avoid triamterene due to hyperkalemia present on admission (3) Acute hyperkalemia: Plan: Resolved. Serial labs (4) Benign essential hypertension: Plan: Stable. Continue current medical management. Hydrochlorothiazide has been restarted (5) Burning with urination: Plan: Resolved. No evidence of UTI. Plan Hopeful discharge to home tomorrow, October 16, on oral vancomycin to complete a 10-day course . She will also remain on Metamucil and Lomotil Admission and Anticipated Discharge Date Admission Date: October 10, 2023 Subjective Alert and oriented. Afebrile. She states she simply cannot go home due to the frequency of her loose stools and the lack of assistance at home. Metamucil increased to 3 times daily and Lomotil added. Unfortunately, it could take quite some time before her bowel movements completely normalize. White blood cell count remains mildly elevated. Potassium improved to 4.6. Vancomycin day 5 of 10 orally. Review of Systems 2 Review of Systems: Constitutional-no fever or chills ENT-no blurred vision, no double vision, no epistaxis, no sore throat Respiratory-no cough, no wheezing, no shortness of breath Cardiac-no palpitations, no chest pain, no syncope GI-no nausea, vomiting, melena, hematochezia. Watery diarrhea from C. difficile enteritis -no urinary retention, no urinary incontinence, no dysuria, no hematuria Musculoskeletal-no joint pain, no muscle tenderness. Chronic bilateral lower extremity venous stasis changes and edema Skin-no bruising, no rashes, no pruritus Neuro-no isolated weakness, no paresthesia, no weakness Psych-no depression, no anxiety Physical Exam 2 Physical Exam: General-alert and oriented x3, no fever, no chills HEENT-head atraumatic and normocephalic, pupils equal and reactive to light, extraocular muscles intact Neck-no lymphadenopathy or thyromegaly, trachea midline Chest-clear to auscultation. No rales, wheezing or rhonchi Cardiac-regular rate and rhythm, normal S1 and S2 Abdomen-normal bowel sounds, nontender, no hepatosplenomegaly Extremities-no cyanosis, clubbing. Chronic bilateral lower extremity venous stasis changes and edema Neuro-cranial nerves II through XII intact, motor and sensory function within normal limits, strength symmetrical, no focal deficits Psych-normal affect, normal mood Results & Data Results & Data Vital Signs (Past 12 Hours) Vital Signs Temp Pulse Pulse Resp BP BP Pulse Ox 10/15/23 11:40 36.6 C 76 16 122/73 98 10/15/23 07:56 36.4 C L 100 H 16 111/74 95 10/15/23 07:42 73 O2 Del Method 10/15/23 11:40 Room Air 10/15/23 07:56 Room Air 10/15/23 07:42 Laboratory Results 10/15/23 05:24 10/15/23 05:24 PG Care Time/CCT Total # of Minutes Spent Total Time Spent with Patient: Total time spent is greater than 50% in coordination of care (as documented) at patient's floor/unit and/or counseling patient: Coding Level of Care Code 77286 SUB INP/OBS CARE 3/50MIN Diagnoses C. difficile colitis A04.72 ZEFERINO (acute kidney injury) N17.9 Acute hyperkalemia E87.5 Benign essential hypertension I10 Burning with urination R30.0
[2023-10-15] MEDS: DIPHENOXYLATE/ATROPINE 2.5/0.025MG TAB PO SCH (20:18)
[2023-10-16 06:10] LABS: Basophils # (auto) 0.04 K/uL (0.00-0.20); Basophils % (auto) 0.3 %; Eosinophils # (auto) 0.13 K/uL (0.00-0.50); Eosinophils % (auto) 0.9 %; Hematocrit (blood only) 34.2 % (37.0-47.0); Hemoglobin 11.2 g/dl (12.0-16.0); Immature Granulocytes # (auto) 0.25 K/uL (0.01-0.20); Immature Granulocytes % (auto) 1.7 %; Lymphocytes # (auto) 1.26 K/uL (1.20-3.40); Lymphocytes % (auto) 8.3 %; Mean Corpuscular Hemoglobin 28.9 pg (25.0-34.0); Mean Corpuscular Hgb Conc 32.7 g/dL (32.0-36.0); Mean Corpuscular Volume 88.4 fL (80.0-100.0); Mean Platelet Volume 11.4 fL (9.4-12.4); Monocytes # (auto) 1.31 K/uL (0.11-0.59); Monocytes % (auto) 8.7 %; Neutrophils # (auto) 12.12 K/uL (1.40-6.50); Neutrophils % (auto) 80.1 %; Platelet Count 342 K/uL (130-400); RDW Coefficient of Variation 14.8 % (11.5-14.5); RDW Standard Deviation 47.8 fL (36.4-46.3); Red Blood Count 3.87 M/uL (4.20-5.40); White Blood Count 15.11 K/ul (4.8-10.8)
[2023-10-16 06:35] LABS: Calcium 9.4 mg/dl (8.6-10.3); Est GFR (African American) 35.6 ml/min; Est GFR (Non-African American) 30.7 ml/min; Potassium 4.2 mmol/L (3.5-5.1)
[2023-10-16] MEDS: CHOLESTYRAMINE LIGHT 4 GM PKT PO SCH (10:11)
--- NOTE | 2023-10-16 11:38 | Discharge Summary ---
Date of Service October 16, 2023 Admission HPI Per Admitting Provider Zeina is an 88-year-old female with PMH of gout, TIA, dyslipidemia, DCIS of the left breast, stage I adenocarcinoma of the lung, colon cancer s/p R hemicolectomy, chronic diarrhea, lumbar radiculopathy, and mixed incontinence urge and stress. She presented for >20x episodes of worsening diarrhea over the past week. She notes that she has had approximately 7-8 episodes of diarrhea in the ED. She denies blood in her stool. She reports it is a yellow, liquidy consistency. She notes that she was checked at [facility] for C. difficile last week, and it was found to be negative. She did not take her regular morning medications today. No sick contacts. No supplemental oxygen use. She notes she has been taking prednisone recently for a popliteal cyst behind her left knee. Patient lives with her . She denies smoking, alcohol use. Other notable hx: right hemicolectomy on February 05, 2023 for colon cancer; SBO in August 2023, discharged on Augmentin x 4 days. Vitals stable at time of admission. ED course: Vancomycin 125 mg p.o. Rocephin 2000 mg IV NSS 2000 mL IV ROS: Patient endorses abdominal cramping, diarrhea, and mild burning with urination. Patient denies fever, chills, nightsweats, dizziness, lighthdeadness, SANTAMARIA, chest pain, cough, SOB, N/V, back pain, urinary s/s, dysuria, saddle anesthesia, or N/T in legs. Principal Diagnosis C. difficile enteritis, hyperkalemia Discharge Exam General-alert and oriented x3, no fever, no chills HEENT-head atraumatic and normocephalic, pupils equal and reactive to light, extraocular muscles intact Neck-no lymphadenopathy or thyromegaly, trachea midline Chest-clear to auscultation. No rales, wheezing or rhonchi Cardiac-regular rate and rhythm, normal S1 and S2 Abdomen-normal bowel sounds, nontender, no hepatosplenomegaly Extremities-no cyanosis, clubbing. Chronic bilateral lower extremity venous stasis changes and edema Neuro-cranial nerves II through XII intact, motor and sensory function within normal limits, strength symmetrical, no focal deficits Psych-normal affect, normal mood Discharge Data Allergies Allergy/AdvReac Type Severity Reaction Status Date / Time adhesive Allergy Intermediate rash, Verified 10/10/23 16:48 redness latex Allergy Intermediate Rash Verified 10/10/23 16:48 ciprofloxacin Allergy Unknown CAN'T Verified 10/10/23 16:48 REMEMBER tetracycline Allergy Unknown CAN'T Verified 10/10/23 16:48 REMEMBER lisinopril AdvReac Intermediate Cough Verified 10/10/23 16:48 Consultations 10/10/23 17:53 ED Decision to Admit Stat Ordered Studies 10/10/23 12:25 CT abd pelvis wo con Stat Hospital Course (1) C. difficile colitis: White blood cell count has improved from admission but remains mildly elevated. Oral vancomycin day 6. Metamucil has been to 3 times daily and Lomotil added to decrease frequency of bowel movements. She refuses addition of cholestyramine. Continue oral vancomycin for 1 more week at discharge (2) ZEFERINO (acute kidney injury): On chronic kidney disease stage III. Creatinine has improved to baseline. IV fluids have been discontinued. Monitor intake and output. Serial labs. Hydrochlorothiazide has been restarted. Will avoid triamterene due to hyperkalemia present on admission (3) Acute hyperkalemia: Resolved. Serial labs (4) Benign essential hypertension: Stable. Continue current medical management. Hydrochlorothiazide has been restarted (5) Burning with urination: Resolved. No evidence of UTI. Plan Home today, October 16, on oral vancomycin for 1 more week. She says she will take Metamucil 3 times daily at home. She would rather not take Lomotil Total Time Total Time Spent Total Time Spent (In Minutes): 45 minutes Discharge Plan Discharge Items Patient Disposition: Home - Self-Care Reason For Visit: DIARRHEA, GI LOSSES, LEUKOCYTOSIS Discharge Diagnosis: C. difficile enteritis, hyperkalemia Activity: Resume your previous activity Non-emergency contact: Primary Care Provider Call non-emergency contact if: you have any medication questions and your symptoms worsen Follow-up/Referrals: Mikel Sanford MD [Primary Care Provider] - Diet: Regular and Heart Healthy Addtl Attending Provider Instructions: Take vancomycin antibiotic for 1 more week. Triamterene has been discontinued so Dyazide has been switched to hydrochlorothiazide water pill only without triamterene. Pending Studies at Discharge: No Stand-Alone Forms: [facility], Smoking Cessation Medications and DC Order Prescriptions: New hydrochlorothiazide 25 mg Tablet 25 mg PO QAM Qty: 30 0RF vancomycin 125 mg capsule 125 mg PO QID 7 Days Qty: 28 0RF Psyllium Or Guar Gum Fiber Sup [Metamucil Or Nutrisource Fiber Supplement] 1 pkg PO BID Qty: 0 0RF Continued nitroglycerin 0.4 mg tablet, sublingual 0.4 mg sublingual Q5M PRN (Reason: chest pain) Qty: 20 0RF Rx Instructions: do not exceed 3 doses per episode allopurinol 100 mg tablet 100 mg PO QAM Qty: 90 3RF cyanocobalamin (vitamin B-12) 1,000 mcg tablet 1,000 mcg PO Q48H ICaps AREDS2 (copper citrate) 250 mg-200 unit -12.5 mg-1 mg tablet 1 tab PO BID cholecalciferol (vitamin D3) [Vitamin D3] 125 mcg (5,000 unit) Tablet 125 mcg PO QAM magnesium oxide 400 mg (241.3 mg magnesium) tablet 400 mg PO DAILY Qty: 7 0RF Rx Instructions: start 09/11 Discontinued triamterene-hydrochlorothiazid 37.5-25 mg tablet 0.5 tab PO QAM Qty: 30 11RF Rx Instructions: PER PT "STOPPED FRIDAY D/T DIARRHEA, LOOSING TOO MUCH FLUID ALREADY, THOUGHT IT WOULD ONLY MAKE IT WORSE". Discharge Orders: Discharge Order (Routine); Ordered 10/16/23 Ordered By: Sandip Rey Admission Data Admit Date/Time: 10/10/23 18:49 Attending Provider: Sandip Rey Admit Provider: Massimo Menjivar Primary Care Provider: Mikel Sanford Other Providers: Massimo Menjivar Coding Level of Care Code 61779 INP/OBS DISCH >30 MIN Diagnoses C. difficile colitis A04.72 ZEFERINO (acute kidney injury) N17.9 Acute hyperkalemia E87.5 Benign essential hypertension I10 Burning with urination R30.0
== END 2023-10-16 14:28 | disposition home or self-care (01) | DRG 372 ==
LOC: ED 11:05 → SUATTDRO 18:49 → EDINP 18:49 → 2W 20:53

== ENCOUNTER 2024-02-27 10:09 | Observation (INO) ==
--- NOTE | 2024-02-27 10:24 | Emergency Department Note ---
ED Provider Note History of Present Illness Chief Complaint: Neck Injury/Pain Stated Complaint: NECK/HEAD PAIN, DIZZINESS, HARD TIME WALKING Time Seen by Provider: 02/27/24 10:22 This is an 88-year-old female with a history of hypertension, possible TIA in 2019, dyslipidemia, lumbar stenosis, prior cancer, accompanied by her , who presents to the emergency department with left-sided neck pain, headache, dizziness that has been present for the past few weeks and is getting worse. The pain starts in the bottom of the left neck and radiates up the left side of the neck. It is worse when she turns her head from [id number] and she has to hold her head up when laying down on the pillow. She denies any specific injuries or falls. Her headache is located in the front of the head and it is always present. She does not have any significant history of headaches. She states that the dizziness is constant and recently she has begun to have a shuffling gait because she is concerned she might fall over. The dizziness is constant whether she is sitting, standing, or changing positions. She does not feel lightheaded or feel like she is going to pass out and she does not have any chest pain or shortness of breath with the dizziness. She was seen by primary care several weeks ago for multiple issues and was prescribed prednisone for the neck pain. She took this medication and states that the pain only got worse, not better. She admits that she has been using some hydrocodone in the evening before she goes to bed to help her get some sleep because the pain in the neck and head is so severe. This allows her to sleep for period of time but when she wakes up to use the restroom in the middle of the night the pain and dizziness has returned. She states that she is not doing much at home at this point because the symptoms are very debilitating. Patient also states that several weeks before the symptoms began she was starting to have some decreased hearing on the right side. That has persisted. She does not take any blood thinners. She denies any weakness in the upper or lower extremities, no numbness or tingling in the upper or lower extremities. No facial droop or confusion. Home Medications Medication Instructions Recorded Confirmed Type cyanocobalamin (vitamin B-12) 1,000 mcg PO Q2D 05/23/19 02/27/24 History 1,000 mcg tablet vit C 250 mg-vit E 200 unit-zinc 1 tab PO BID 11/28/20 02/27/24 History 12.5 mg-copper 1 [id number] tablet (ICaps AREDS2 (copper citrate)) nitroglycerin 0.4 mg sublingual 0.4 mg sublingual Q5M PRN chest 09/05/21 02/27/24 Rx tablet pain #20 tabs allopurinol 100 mg tablet 100 mg PO QAM #90 tabs 03/27/23 02/27/24 Rx cholecalciferol (vitamin D3) 125 125 mcg PO QAM 09/07/23 02/27/24 History mcg (5,000 unit) tablet (Vitamin D3) colestipol 1 gram tablet 1 g PO UD PRN Diarrhea 12/08/23 02/27/24 History inulin 2 gram chewable tablet 4 g PO QAM 02/04/24 02/27/24 History (Fiber Gummies) vgkrxohyamut-aeupssrj-ploqks 1 tab PO QAM 02/04/24 02/27/24 History tablet (Multivitamin 50 Plus tablet) fluticasone furoate 27.5 2 spray intranasal UD PRN Other 02/09/24 02/27/24 History mcg/actuation nasal spray,suspension ipratropium bromide 21 mcg (0.03 2 spray intranasal BID PRN allergy 02/09/24 02/27/24 Rx %) nasal spray symptoms #30 mL hydrocodone 5 mg-acetaminophen 325 1 tab PO BID PRN pain #60 tabs 02/24/24 02/27/24 Rx mg tablet Allergies Allergy/AdvReac Type Severity Reaction Status Date / Time adhesive Allergy Intermediate rash, Verified 02/09/24 15:11 redness latex Allergy Intermediate Rash Verified 02/09/24 15:11 ciprofloxacin Allergy Unknown CAN'T Verified 02/09/24 15:11 REMEMBER tetracycline Allergy Unknown CAN'T Verified 02/09/24 15:11 REMEMBER lisinopril AdvReac Intermediate Cough Verified 02/09/24 15:11 Past Med/Surg History Problem List (Updated 02/27/24 @ 16:28 by Jarrell Winter PA-C) Asymptomatic bacteriuria Hx of cancer of lung Ambulatory dysfunction Acute neck pain (Acute) Acute UTI (Acute) Headache (Acute) Dizziness (Acute) Dysgeusia Fatigue Cervicalgia Allergic rhinitis Hearing loss in right ear Left lumbar radiculitis Abnormal weight loss UTI (urinary tract infection) C. difficile colitis Acute dehydration (Acute) Acute hyperkalemia (Acute) ZEFERINO (acute kidney injury) (Acute) Left knee pain Nausea Synovial cyst of popliteal space [Stoner], left knee Anemia Electrolyte abnormality Kidney cysts Iron deficiency anemia Medicare annual wellness visit, subsequent Breast cancer screening History of melanoma History of ovarian cancer Lung cancer Breast cancer Restless leg syndrome Low back pain Colon cancer Stage I adenocarcinoma of lung (Chronic) Encounter for pre-operative examination Abnormal PET scan of lung Vitamin D insufficiency Dyslipidemia Abnormal CT scan of lung Gout Hypercalcemia pt "unsure about this" Acute renal insufficiency Chronic anemia Hypomagnesemia Chest pain beginning of 2021, "told dr after the fact because the pain went away, did not go to the hospital or dr" Thoracic back pain Bilateral lower extremity edema Atrophic vaginitis Frequent bowel movements Loperamide prn 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 2019) Vitamin B12 deficiency (Acute) Vitamin D deficiency (Acute) Medical History Loose bowel movements chronic since 1987 and her multiple abdominal surgeries. no s/s of c.diff at this time. Stage I adenocarcinoma of lung per medical record, pt denies her pulmonary nodule has not been biopsied Hx SBO x3 (most recent 08/2023) treated while inpatient at [facility]. related to abdominal adhesions (multiple SBO) Restless leg syndrome pt denies Renal cyst incidental finding 09/2023 - monitoring History of TIA (transient ischemic attack) per medical record remote history? - pt denies. Osteoporosis Hx of ovarian cancer (1987) surgical intervention and radiation treatments Hx of basal cell carcinoma (2018) History of melanoma (2018) s/p excision per PCP records (right medial thigh) History of left breast cancer (2020) with surgical intervention and radiation treatments. History of hypertension taken off her medication while inpatient at [facility] Aug/Sep 2023. Lumbar stenosis History of colon cancer January 2023 with surgical intervention. no chemo/no radiation. Chronic anemia per medical record - pt denies Venous insufficiency bilateral legs Bilateral lower extremity edema Hx of Clostridium difficile infection September 2023. treated and no problems at this time. Chronic gout Renal insufficiency pt denies/unaware Hx of multiple pulmonary nodules x3 nodules radiation treatments Fall 2021 Hx of blood clots Hx LLE DVT r/t immobility after an injury to foot - no problems since Surgical History History of appendectomy Hx of basal cell carcinoma excision (2018) s/p excision per PCP records (left ankle) History of colon resection 02/05/2023 @ [facility] 12 inches removed, tumor removal History of bronchoscopy 04/2022 at [facility] Hx of total hysterectomy with removal of both tubes and ovaries Hx of lumpectomy Left breast lumpectomy (no lymph node removal per patient - patient states there is no restrictions with the left arm) -also had radiation History of breast biopsy left H/O nephrolithotomy with removal of calculi (1971) History of esophagogastroduodenoscopy (EGD) History of colonoscopy Hx of tonsillectomy 1948 H/O melanoma excision Hx of cholecystectomy Family History Brother Family history of diabetes mellitus Other No family history of adverse response to anesthesia No pertinent family history Social History Smoking Status: Never smoker Second Hand Exposure: No; Do You Dip or Chew Tobacco: No; Hx Alcohol Use: No Hx Substance Use: No Preferred Language: Spanish Communication Ability: Effective Visual Impairment: No Limitations Hearing Ability: Normal Diving Board Assembler Required: No Beliefs That Will Affect Care: None marital status: Current Living Situation: Spouse current occupational status: retired current occupation: [employer]; [employer] How many Children do You have: 4 Feels Safe at Home: Yes Safety Concerns: Feels Safe At This Time Childhood Exposure to Second-Hand Smoke: No caffeine: No Dental Care, Regularly: Yes Physical Activity Frequency: Other Physical Activity Frequency Comment: House work Seatbelt Use: sometimes Sunscreen Use: No Assistive Devices: Glasses Physical Exam Vital Signs Vital Signs - 24 hr 02/27/24 10:15 02/27/24 10:28 02/27/24 10:30 Temperature 97.5 F L Temperature Source Temporal Artery Scan Pulse Rate 78 78 Pulse Rate from SpO2 Sensor Respiratory Rate 20 Respiratory Depth Normal Blood Pressure 155/85 H 160/92 H Blood Pressure [Right Arm] Blood Pressure Mean 108 107 Blood Pressure Mean [Right Arm] Blood Pressure Position [Right Arm] Pulse Oximetry 95 Oxygen Delivery Method Room Air Sepsis Recent Fever Within 48 Hours No Sepsis New/Unexplained Change in Mental Status No Sepsis Action Taken by Nursing No Action Required 02/27/24 10:33 02/27/24 10:48 02/27/24 11:19 Temperature Temperature Source Pulse Rate 83 71 74 Pulse Rate from SpO2 Sensor 82 Respiratory Rate 18 20 20 Respiratory Depth Blood Pressure 138/73 Blood Pressure [Right Arm] Blood Pressure Mean 89 Blood Pressure Mean [Right Arm] Blood Pressure Position [Right Arm] Pulse Oximetry 95 Oxygen Delivery Method Sepsis Recent Fever Within 48 Hours Sepsis New/Unexplained Change in Mental Status Sepsis Action Taken by Nursing 02/27/24 11:24 02/27/24 11:45 02/27/24 14:27 Temperature Temperature Source Pulse Rate 72 64 Pulse Rate from SpO2 Sensor 68 Respiratory Rate 16 Respiratory Depth Blood Pressure Blood Pressure [Right Arm] 135/84 Blood Pressure Mean Blood Pressure Mean [Right Arm] 101 Blood Pressure Position [Right Arm] Sitting Pulse Oximetry 97 Oxygen Delivery Method Sepsis Recent Fever Within 48 Hours Sepsis New/Unexplained Change in Mental Status Sepsis Action Taken by Nursing CONSTITUTIONAL: Well developed, well nourished, in no acute distress, pleasant HEAD: Normocephalic, atraumatic. EYES: PERRL, conjunctivae normal, extraocular muscles intact. ENMT: External ears normal. Bilateral TMs normal in appearance with no erythema or bulging. Canals are clear. Tongue midline, no fasciculations. NECK: There is reproducible tenderness in the base of the left neck extending into the left trapezius musculature. There is pain elicited in this region with rotation to the right into the left. There is no midline spinous process tenderness. Range of motion is limited to the right secondary to pain. RESPIRATORY: Breathing unlabored and symmetric. Lungs clear to auscultation bilaterally. No wheeze, rales, or rhonchi. CARDIOVASCULAR: Regular rate and rhythm. No murmurs, rubs, or gallops. Radial and DP pulses 2+ bilaterally. ABDOMEN: Soft, nontender MUSCULOSKELETAL: Moves all extremities at all joints without pain or difficulty. SKIN: Florien, warm, dry. NEUROLOGIC: Awake, alert, oriented. Cranial nerves II through XII intact. Negative pronator drift. Coordination intact in bilateral upper and lower extremities. Environmental Protection Forester strength 5+ bilaterally. Able to perform straight leg raise bilaterally. No sensory deficits in bilateral upper or lower extremities. Patient able to stand however is slightly unsteady and ambulates with a shuffling gait. She reaches out to grab my hand for stability. PSYCHIATRIC: Appropriate. Normal affect. No confusion. Course Administered Medications Sodium Chloride (Nss) 1,000 mls @ 125 mls/hr IV .Q8H AMOR Stop: 02/28/24 00:14 Last Admin: 02/27/24 16:36 Dose: 125 mls/hr Documented By: [facility] Discontinued Medications Acetaminophen (Ofirmev) 1,000 mg in 100 mls @ 400 mls/hr IV NOW STA Stop: 02/27/24 10:57 Last Infusion: 02/27/24 12:53 Dose: Infused Documented By: Admin: 02/27/24 11:16 Dose: 400 mls/hr Documented By: CHETAN Sodium Chloride (Nss) 250 mls @ 999 mls/hr IV .Q16M ONE Stop: 02/27/24 12:01 Last Infusion: 02/27/24 13:13 Dose: Infused Documented By: Admin: 02/27/24 12:09 Dose: 999 mls/hr Documented By: CHETAN Ioversol (Optiray 320 125ml) 119 ml IV ONCE ONE Stop: 02/27/24 12:05 Last Admin: 02/27/24 12:05 Dose: 119 ml Documented By: KISHAN Lidocaine (Lidocaine 5% 1 Patch) 1 patch TD NOW STA Stop: 02/27/24 10:44 Last Admin: 02/27/24 11:16 Dose: 1 patch Documented By: CHETAN Medical Decision Making Differential Diagnosis Myofascial pain, muscle strain, muscle spasm, vertebral artery dissection, carotid dissection or aneurysm, posterior CVA, BPPV, mass, normal pressure hydrocephalus, Parkinson's, labyrinthitis, radiculopathy, among other pathology Medical Records Attestation: I reviewed the patient's medical records. (Reviewed recent primary care notes, patient placed on prednisone for neck pain as it has helped back pain in the past.) Laboratory Data 02/27/24 11:00 02/27/24 11:00 Lab Results 02/27/24 02/27/24 Range/Units 11:00 11:55 WBC 11.44 H (4.8-10.8) K/ul RBC 4.25 (4.20-5.40) M/uL Hgb 12.5 (12.0-16.0) g/dl Hct 39.2 (37.0-47.0) % MCV 92.2 (80.0-100.0) fL MCH 29.4 (25.0-34.0) pg MCHC 31.9 L (32.0-36.0) g/dL RDW Std Deviation 49.4 H (36.4-46.3) fL RDW Coeff of [place] 14.6 H (11.5-14.5) % Plt Count 295 (130-400) K/uL MPV 10.5 (9.4-12.4) fL Immature Gran % (Auto) 1.1 % Neut % (Auto) 76.4 % Lymph % (Auto) 10.9 % [place] % (Auto) 9.5 % Eos % (Auto) 1.7 % Baso % (Auto) 0.4 % Neut # (Auto) 8.72 H (1.40-6.50) K/uL Lymph # (Auto) 1.25 (1.20-3.40) K/uL [place] # (Auto) 1.09 H (0.11-0.59) K/uL Eos # (Auto) 0.20 (0.00-0.50) K/uL Baso # (Auto) 0.05 (0.00-0.20) K/uL Immature Gran # (Auto) 0.13 (0.01-0.20) K/uL PT 11.0 (9.0-12.0) Seconds INR 1.0 (0.9-1.1) APTT < 20 L (21-31) Seconds PTT Ratio 0.7 Sodium 135 L (136-145) mmol/L Potassium 3.7 (3.5-5.1) mmol/L Chloride 100 (98-107) mmol/L Carbon Dioxide 28 (21-32) mmol/L Anion Gap 7 (3-11) BUN 46 H (6-23) mg/dl Creatinine 1.46 H (0.6-1.2) mg/dl Est Cr Clr Drug Dosing 18.3 ml/min Est GFR ( Amer) 37.4 ml/min Est GFR (Non-Af Amer) 32.3 ml/min BUN/Creatinine Ratio 31.5 H (10-20) Glucose 93 (70-99(Fasting)) mg/dl Calcium 11.2 H (8.6-10.3) mg/dl Magnesium 1.7 (1.7-2.4) mg/dl Total Bilirubin 0.7 (0.2-1.0) mg/dl AST 15 (13-39) U/L ALT 10 (7-52) U/L Alkaline Phosphatase 154 H (34-104) U/L Troponin I High Sens 8.3 (0-14) pg/ml Total Protein 6.3 (6.0-8.3) gm/dl Albumin 3.9 (3.4-5.0) gm/dl Globulin 2.4 L (2.5-4.0) gm/dl Albumin/Globulin Ratio 1.6 (0.9-2) Urine Color Yellow Urine Appearance Clear (Clear) Urine pH 5.0 (4.5-7.5) Ur Specific [place] 1.016 (1.000-1.030) Urine Protein Negative (Negative) Urine Glucose (UA) Negative (Negative) Urine Ketones Negative (Negative) Urine Blood Negative (Negative) Urine Nitrite Positive A (Negative) Urine Bilirubin Negative (Negative) Urine Urobilinogen Negative (Negative) Ur Leukocyte Esterase Trace H (Negative) Urine WBC (Auto) 0-5 (0-5) /hpf Urine RBC (Auto) 0-2 (0-2) /hpf U Hyaline Cast (Auto) 0-2 (0-2) /lpf U Epithel Cells (Auto) 0-2 (0-2) /hpf Urine Bacteria (Auto) 3+ H (None Seen) Imaging Data Radiologist's Impression: Chest X-Ray 02/27/24 10:43 XR chest 1V portable HISTORY: dizziness/neck pain COMPARISON: Chest CT 01/23/2024. FINDINGS: No pneumothorax. The cardiac silhouette is normal in size. No acute fractures. The right lung is clear. Small to moderate left pleural effusion and left basilar densities have slightly progressed. No evidence for pulmonary edema. IMPRESSION: Small to moderate left pleural effusion and left basilar densities have slightly progressed. ACT 112: Negative or not required by law. Electronically signed by: Jarrell Emery M.D. 02/27/2024 11:22 AM Head CTA 02/27/24 10:43 CT angio head wo/w CLINICAL HISTORY: L neck pain, headache, dizziness COMPARISON STUDY: MRI of the brain March 20, 2016. TECHNIQUE: Unenhanced and arterial phase imaging of the head was performed. Intravenous injection of 119 cc Optiray 320 IV was uneventful. Sagittal and coronal reconstructions were viewed as well as maximal intensity projections on an independent 3-D workstation. Automated exposure control was utilized for the study. A dose lowering technique was utilized adhering to the principles of ALARA. FINDINGS: No acute intracranial hemorrhage, midline shift or mass effect is present. Ventricular system is stable. Basal cisterns are patent. There are no extra-axial collections. White matter hypodensity suggests small vessel disease. There are no findings to suggest acute dural sinus thrombosis or acute territorial infarct. There are no calvarial fractures. The bilateral M1, M2, A1 and A2 segments are patent. No intracranial vessel occlusion is identified. There is no intracranial aneurysm or dissection. There is moderate calcified plaque within the left cavernous carotids without significant stenosis. There is persistence of the right posterior cerebral artery. Posterior circulation is intact. IMPRESSION: 1. No acute intracranial findings. 2. No intracranial vessel occlusion. No intracranial aneurysm. ACT 112: Negative or not required by law. Electronically signed by: Ernesto Cobb M.D. 02/27/2024 12:15 PM Neck CTA 02/27/24 10:43 NECK CTA HISTORY: L neck pain, headache, dizziness TECHNIQUE: Multiaxial CT images of the neck were performed following the intravenous administration of contrast to evaluate the major cervical vessels. 3D/MIP images were also obtained. Sagittal and coronal reformats were reviewed. All measurements were calculated based on NASCET criteria. A dose lowering technique was utilized adhering to the principles of ALARA. COMPARISON STUDY: Chest CTA 01/23/2024 FINDINGS: The aortic arch and proximal great vessels are widely patent. There is no significant stenosis, occlusion, or dissection identified within the bilateral common carotid, internal carotid, or vertebral arteries. Partially visualized small left pleural effusion again noted. There is a focal branching irregular density within the right upper lobe on image 10. This remains unchanged compared to the recent chest CT. This measures up to 11 mm in thickness. IMPRESSION: 1. No significant stenosis, occlusion, or dissection identified within the carotid or vertebral arteries. 2. Partially visualized small left pleural effusion again noted. 3. No change in the focal branching irregular density within the right upper lobe. Continued chest CT follow-up recommended to ensure stability/resolution. ACT 112: Negative or not required by law. Electronically signed by: Jarrell Emery M.D. 02/27/2024 12:17 PM MDM Narrative This is a pleasant 88-year-old female who presents to the emergency department with 2 to 3 weeks of left-sided neck pain, constant frontal headaches, and now with constant dizziness. She also describes some decreased hearing on the right that preceded the symptoms. See above for further details. Patient does have reproducible tenderness in the left base musculature of the neck extending into the trapezius musculature and I am able to reproduce the pain by having her rotate especially to the right. She is slightly unsteady and ambulates with a shuffling gait and tries to grab my hand for stability but is not severely ataxic. The remainder of her neurologic exam is reassuring. IV was inserted and labs were obtained. She was given IV Tylenol as well as a lidocaine patch for the pain. EKG sinus rhythm with a rate of 69. PVCs noted. Intervals within normal limits. No acute ST elevation. Normal axis. Chest x-ray shows small to moderate left pleural effusion which is slightly progressed with left basilar densities. Labs: Mild leukocytosis at 11.4 likely secondary to pain. No anemia. No thrombocytopenia. Coags unremarkable. Creatinine at about baseline at 1.46. Hypercalcemia noted at 11.2, patient has been high in the past. Stable mild elevation of alkaline phosphatase at 154. Troponin normal. Magnesium normal. Urine with possible evidence of UTI with positive nitrites and 3+ blood. CTA of the head and neck negative for acute process. On reevaluation patient felt that the muscle pain in the trapezius musculature had slightly improved however she persisted with a significant headache. Patient not a good candidate for being discharged home. Feel that she would benefit from inpatient management, further testing, and PT OT evaluation. She and her are agreeable. Case reviewed with [facility] hospitalist group who agrees to admit the patient. She will be admitted under Dr. Mcmahan. Impression Dizziness, Headache, Acute UTI, Acute neck pain Discharge Plan Visit Data Chief Complaint: Neck Injury/Pain Stated Complaint: NECK/HEAD PAIN, DIZZINESS, HARD TIME WALKING ED Provider: [facility] Kemp ED Midlevel Provider: Leo Walsh Discharge Problem: Dizziness, Headache, Acute UTI, Acute neck pain Patient Disposition: Admitted As Inpatient Discharge Instructions Interventions: ED Discharge Assessment Last Done: 02/27/24 15:58 Discharge Problem: Headache Qualifiers: Headache type: unspecified Headache chronicity pattern: acute headache I ntractability: not intractable Qualified Code(s): R51.9 - Headache, unspecified
[2024-02-27] MEDS: LIDOCAINE 5% 1 PATCH TD STA (11:16)
[2024-02-27] MEDS: ACETAMINOPHEN 1,000 MG/100 ML VIAL IV STA (11:16)
[2024-02-27 11:20] LABS: Basophils # (auto) 0.05 K/uL (0.00-0.20); Basophils % (auto) 0.4 %; Eosinophils % (auto) 1.7 %; Hematocrit (blood only) 39.2 % (37.0-47.0); Hemoglobin 12.5 g/dl (12.0-16.0); Immature Granulocytes # (auto) 0.13 K/uL (0.01-0.20); Immature Granulocytes % (auto) 1.1 %; Lymphocytes # (auto) 1.25 K/uL (1.20-3.40); Lymphocytes % (auto) 10.9 %; Mean Corpuscular Hemoglobin 29.4 pg (25.0-34.0); Mean Corpuscular Hgb Conc 31.9 g/dL (32.0-36.0); Mean Corpuscular Volume 92.2 fL (80.0-100.0); Mean Platelet Volume 10.5 fL (9.4-12.4); Monocytes # (auto) 1.09 K/uL (0.11-0.59); Monocytes % (auto) 9.5 %; Neutrophils # (auto) 8.72 K/uL (1.40-6.50); Neutrophils % (auto) 76.4 %; Platelet Count 295 K/uL (130-400); RDW Coefficient of Variation 14.6 % (11.5-14.5); RDW Standard Deviation 49.4 fL (36.4-46.3); Red Blood Count 4.25 M/uL (4.20-5.40); White Blood Count 11.44 K/ul (4.8-10.8)
--- NOTE | 2024-02-27 11:23 | XRay Report ---
XR chest 1V portable HISTORY: dizziness/neck pain COMPARISON: Chest CT 01/23/2024. FINDINGS: No pneumothorax. The cardiac silhouette is normal in size. No acute fractures. The right jomar ng is clear. Small to moderate left pleural effusion and left basilar densities have slightly progres sed. No evidence for pulmonary edema. IMPRESSION: Small to moderate left pleural effusion and left basilar densities have slightly progressed. ACT 112: Negative or not required by law. Electronically signed by: Jarrell Emery M.D. 02/27/2024 11:22 AM
[2024-02-27 11:34] LABS: Albumin Globulin Ratio 1.6 (0.9-2); Albumin Level 3.9 gm/dl (3.4-5.0); BUN Creatinine Ratio 31.5 (10-20); Bilirubin,Total 0.7 mg/dl (0.2-1.0); Calcium 11.2 mg/dl (8.6-10.3); Creatinine Clr Calc Pharmacy 18.3 ml/min; Est GFR (African American) 37.4 ml/min; Est GFR (Non-African American) 32.3 ml/min; Globulin 2.4 gm/dl (2.5-4.0); Potassium 3.7 mmol/L (3.5-5.1); Total Protein 6.3 gm/dl (6.0-8.3)
[2024-02-27 11:40] LABS: Troponin I High Sensitivity 8.3 pg/ml (0-14)
[2024-02-27 11:47] LABS: Partial Thromboplastin Ratio 0.7
[2024-02-27] MEDS: OPTIRAY 320 125ml IV ONE (12:05)
[2024-02-27] MEDS: SODIUM CHLORIDE 0.9% 250 ML IV ONE (12:09)
[2024-02-27 12:12] LABS: Appearance Urine Clear (Clear); Bacteria Urine Automated 3+ (None Seen); Bilirubin Urine Negative (Negative); Blood Urine Negative (Negative); Cast Urine Automated 0-2 /lpf (0-2); Color Urine Yellow; Epithelial Cell Urine Auto 0-2 /hpf (0-2); Glucose Urine UA Negative (Negative); Ketones Urine Negative (Negative); Leukocyte Esterase Urine Trace (Negative); Nitrite Urine Positive (Negative); Protein Urine Negative (Negative); RBC Urine Automated 0-2 /hpf (0-2); Specific Gravity Urine 1.016 (1.000-1.030); Urobilinogen Urine Negative (Negative); WBC Urine Automated 0-5 /hpf (0-5)
[2024-02-27 12:17] LABS: Partial Thromboplastin Time < 20 Seconds (21-31)
--- NOTE | 2024-02-27 12:17 | CT Scan Report ---
CT angio head wo/w CLINICAL HISTORY: L neck pain, headache, dizziness COMPARISON STUDY: MRI of the brain March 20, 2016. TECHNIQUE: Unenhanced and arterial phase imaging of the head was performed. Intravenous injection of 119 cc Optiray 320 IV was uneventful. Sagittal and coronal reconstructions were viewed as well as max imal intensity projections on an independent 3-D workstation. Automated exposure control was utilized for the study. A dose lowering technique was utilized adhering to the principles of ALARA. FINDINGS: No acute intracranial hemorrhage, midline shift or mass effect is present. Ventricular syst em is stable. Basal cisterns are patent. There are no extra-axial collections. White matter hypodensi ty suggests small vessel disease. There are no findings to suggest acute dural sinus thrombosis or ac [place] territorial infarct. There are no calvarial fractures. The bilateral M1, M2, A1 and A2 segments a re patent. No intracranial vessel occlusion is identified. There is no intracranial aneurysm or disse ction. There is moderate calcified plaque within the left cavernous carotids without significant sten osis. There is persistence of the right posterior cerebral artery. Posterior circulation is int act. IMPRESSION: 1. No acute intracranial findings. 2. No intracranial vessel occlusion. No intracranial aneurysm. ACT 112: Negative or not required by law. Electronically signed by: Ernesto Cobb M.D. 02/27/2024 12:15 PM
--- NOTE | 2024-02-27 12:19 | CT Scan Report ---
NECK CTA HISTORY: L neck pain, headache, dizziness TECHNIQUE: Multiaxial CT images of the neck were performed following the intravenous administration o f contrast to evaluate the major cervical vessels. 3D/MIP images were also obtained. Sagittal and cor onal reformats were reviewed. All measurements were calculated based on NASCET criteria. A dose low ering technique was utilized adhering to the principles of ALARA. COMPARISON STUDY: Chest CTA 01/23/2024 FINDINGS: The aortic arch and proximal great vessels are widely patent. There is no significant sten osis, occlusion, or dissection identified within the bilateral common carotid, internal carotid, or v ertebral arteries. Partially visualized small left pleural effusion again noted. There is a focal bra nching irregular density within the right upper lobe on image 10. This remains unchanged compared to the recent chest CT. This measures up to 11 mm in thickness. IMPRESSION: 1. No significant stenosis, occlusion, or dissection identified within the carotid or vertebral arter ies. 2. Partially visualized small left pleural effusion again noted. 3. No change in the focal branching irregular density within the right upper lobe. Continued chest CT follow-up recommended to ensure stability/resolution. ACT 112: Negative or not required by law. Electronically signed by: Jarrell Emery M.D. 02/27/2024 12:17 PM
[2024-02-27 13:29] LABS: Magnesium 1.7 mg/dl (1.7-2.4)
--- NOTE | 2024-02-27 13:54 | History & Physical Report ---
Date of Service February 27, 2024 Assessment & Plan (1) Acute neck pain: Plan: Dizziness, left-sided posterior neck pain, and changes in taste/hearing x 2 weeks Head/neck CTA without acute findings Brain MRI w/wo ordered, pending Hold home hydrocodone Lidocaine patch as needed for the pain Acetaminophen as needed for pain/fever Oxycodone 5mg p.o. q12h as needed for breakthrough pain Meclizine 12.5 mg p.o. q6h as needed for dizziness A.m. CBC, BMP, mag (2) Headache: Plan: Could be related to hypercalcemia, sinus infection, intracranial mass Checking brain MRI with contrast Treating hypercalcemia Pain medication as noted above (3) Ambulatory dysfunction: Plan: No recent falls, but patient reports she feels off balance when walking PT/OT evaluations appreciated Fall precautions Checking brain MRI (4) Hypercalcemia: Plan: Hypercalcemia at 11.2 on arrival. With headaches and musculoskeletal complaints, could be symptomatic hypercalcemia She is on HCTZ at home as well as recently increased her vitamin D to 5000 units daily from 2000 NSS 500mL in the ED Continue IVF resuscitation with NSS at 125mL/hr x 2 L PTH elevated at 132 on 02/08; ?Primary hyperparathyroidism Parathyroid related protein ordered, sent out Vitamin D level 72 on 02/08 Hold vitamin D supplements Will also check phosphorus, magnesium, and replace with IV magnesium Consider adding on Lasix for diuretic as she does get peripheral edema and this would also help hypercalcemia (5) Hx of cancer of lung: Plan: Hx of lung, breast, ovarian, and colon cancer s/p radiation completion in Jun 2022 Colon cancer resection in 2022 (6) Asymptomatic bacteriuria: Plan: UA 3+ bacteria on arrival Leukocytosis at 11.44 on arrival; in the setting of recent prednisone taper Clinically, patient denies burning w/ urination / urinary symptoms Will defer abx for now Follow UCx Plan Disposition: Admit to MedSurg telemetry DNR/DNI Regular diet, easy to chew VTE PPx: Teds; hold chemical DVT PPx pending MRI History of Present Illness Chief Complaint: Left-sided neck pain, dizziness, headache Primary Care Provider: Mikel Sanford MD Zeina is a pleasant 88-year-old female with PMH of stage I adenocarcinoma of the lung, DCIS of left breast, colon cancer s/p resection, ovarian cancer, TIA, cervicalgia, mixed stress and urge incontinence, lumbar radiculopathy, osteoporosis, chronic anemia, gout, and C. difficile colitis. She presented for left-sided neck and head pain, headache, dizziness, and ambulatory dysfunction x 2 weeks. Patient reports that the headache is in the middle of her forehead, and this is new for her; she rarely got headaches in the past, but she is now having them daily. Patient also endorses left-sided, posterior neck pain with occasional radiation to the right posterior neck. She describes it as a dull, achy, constant pain; 6/10 at present. She reports that the lidocaine patch in the ED and home medications have not been helping; takes hydrocodone at bedtime, but this only helps with her sleep and not with the pain. She has difficulty characterizing her dizziness; denies that the room is spinning, or she feels like she is going to pass out, but reports that she just feels off. No history of vertigo. She denies any recent falls or injuries to the head or neck. No PMH of strokes, but she does note she had a "mini stroke" in the past. She denies strokelike symptoms such as slurred speech, facial droop, or unilateral deficits. Patient took all of her regular morning medications today. She manages her own medicine at home. She recently finished IV prednisone taper for her left neck pain, but this did not help; took the last dose yesterday. She does have a history of radiation therapy for her lungs in 2021, but she is not currently on radiation therapy or chemotherapy. She did have a tumor removed from her colon last year. She is unsure when her hearing loss started, but believes her change in taste has been ongoing for the past several months. She reports that she eats well, but her weight has remained around the same; she reports she lost a lot of weight after her C. difficile infection in September 2023. She reports she is not currently on any medication for hypercalcemia. She denies smoking, tobacco use, or alcohol use. Patient's vitals are stable at time of admission. ED course: NSS 250 mL IV Acetaminophen 1000 mg IV Lidocaine patch ROS: Patient endorses SANTAMARIA, dizziness (but not like the room is spinning), left-sided neck pain, difficulty swallowing, dysgeusia, productive cough (clear phlegm), abdominal pain, and intermittent diarrhea. Patient denies fever, chills, night-sweats, changes in weight, syncope, lightheadedness, falls, changes in vision, chest pain/pressure, chest palpitations, , pleuritic CP, N/V, changes in urinary/bowel habits, burning with urination, dysuria, saddle anesthesia, or numbness/tingling in the arms or legs. Allergies Allergy/AdvReac Type Severity Reaction Status Date / Time adhesive Allergy Intermediate rash, Verified 02/09/24 15:11 redness latex Allergy Intermediate Rash Verified 02/09/24 15:11 ciprofloxacin Allergy Unknown CAN'T Verified 02/09/24 15:11 REMEMBER tetracycline Allergy Unknown CAN'T Verified 02/09/24 15:11 REMEMBER lisinopril AdvReac Intermediate Cough Verified 02/09/24 15:11 Home Medications Medication Instructions Recorded Confirmed Type cyanocobalamin (vitamin B-12) 1,000 mcg PO Q2D 05/23/19 02/27/24 History 1,000 mcg tablet vit C 250 mg-vit E 200 unit-zinc 1 tab PO BID 11/28/20 02/27/24 History 12.5 mg-copper 1 [id number]-[id number] tablet (ICaps AREDS2 (copper citrate)) nitroglycerin 0.4 mg sublingual 0.4 mg sublingual Q5M PRN chest 09/05/21 02/27/24 Rx tablet pain #20 tabs allopurinol 100 mg tablet 100 mg PO QAM #90 tabs 03/27/23 02/27/24 Rx cholecalciferol (vitamin D3) 125 125 mcg PO QAM 09/07/23 02/27/24 History mcg (5,000 unit) tablet (Vitamin D3) colestipol 1 gram tablet 1 g PO UD PRN Diarrhea 12/08/23 02/27/24 History inulin 2 gram chewable tablet 4 g PO QAM 02/04/24 02/27/24 History (Fiber Gummies) ectfkqimaigc-gdnexwhq-eggetd 1 tab PO QAM 02/04/24 02/27/24 History tablet (Multivitamin 50 Plus tablet) fluticasone furoate 27.5 2 spray intranasal UD PRN Other 02/09/24 02/27/24 History mcg/actuation nasal spray,suspension ipratropium bromide 21 mcg (0.03 2 spray intranasal BID PRN allergy 02/09/24 02/27/24 Rx %) nasal spray symptoms #30 mL hydrocodone 5 mg-acetaminophen 325 1 tab PO BID PRN pain #60 tabs 02/24/24 02/27/24 Rx mg tablet hydrochlorothiazide 25 mg tablet 25 mg PO DAILY 02/27/24 02/27/24 History Past Med/Surg History Problem List (Updated 02/27/24 @ 16:28 by Jarrell Winter PA-C) Asymptomatic bacteriuria Hx of cancer of lung Ambulatory dysfunction Acute neck pain (Acute) Acute UTI (Acute) Headache (Acute) Dizziness (Acute) Dysgeusia Fatigue Cervicalgia Allergic rhinitis Hearing loss in right ear Left lumbar radiculitis Abnormal weight loss UTI (urinary tract infection) C. difficile colitis Acute dehydration (Acute) Acute hyperkalemia (Acute) ZEFERINO (acute kidney injury) (Acute) Left knee pain Nausea Synovial cyst of popliteal space [Stoner], left knee Anemia Electrolyte abnormality Kidney cysts Iron deficiency anemia Medicare annual wellness visit, subsequent Breast cancer screening History of melanoma History of ovarian cancer Lung cancer Breast cancer Restless leg syndrome Low back pain Colon cancer Stage I adenocarcinoma of lung (Chronic) Encounter for pre-operative examination Abnormal PET scan of lung Vitamin D insufficiency Dyslipidemia Abnormal CT scan of lung Gout Hypercalcemia pt "unsure about this" Acute renal insufficiency Chronic anemia Hypomagnesemia Chest pain beginning of 2021, "told dr after the fact because the pain went away, did not go to the hospital or dr" Thoracic back pain Bilateral lower extremity edema Atrophic vaginitis Frequent bowel movements Loperamide prn 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 2019) Vitamin B12 deficiency (Acute) Vitamin D deficiency (Acute) Medical History Loose bowel movements chronic since 1987 and her multiple abdominal surgeries. no s/s of c.diff at this time. Stage I adenocarcinoma of lung per medical record, pt denies her pulmonary nodule has not been biopsied Hx SBO x3 (most recent 08/2023) treated while inpatient at [facility]. related to abdominal adhesions (multiple SBO) Restless leg syndrome pt denies Renal cyst incidental finding 09/2023 - monitoring History of TIA (transient ischemic attack) per medical record remote history? - pt denies. Osteoporosis Hx of ovarian cancer (1987) surgical intervention and radiation treatments Hx of basal cell carcinoma (2018) History of melanoma (2018) s/p excision per PCP records (right medial thigh) History of left breast cancer (2020) with surgical intervention and radiation treatments. History of hypertension taken off her medication while inpatient at [facility] Aug/Sep 2023. Lumbar stenosis History of colon cancer January 2023 with surgical intervention. no chemo/no radiation. Chronic anemia per medical record - pt denies Venous insufficiency bilateral legs Bilateral lower extremity edema Hx of Clostridium difficile infection September 2023. treated and no problems at this time. Chronic gout Renal insufficiency pt denies/unaware Hx of multiple pulmonary nodules x3 nodules radiation treatments Fall 2021 Hx of blood clots Hx LLE DVT r/t immobility after an injury to foot - no problems since Surgical History History of appendectomy Hx of basal cell carcinoma excision (2018) s/p excision per PCP records (left ankle) History of colon resection 02/05/2023 @ [facility] [place] 12 inches removed, tumor removal History of bronchoscopy 04/2022 at [facility] Hx of total hysterectomy with removal of both tubes and ovaries Hx of lumpectomy Left breast lumpectomy (no lymph node removal per patient - patient states there is no restrictions with the left arm) -also had radiation History of breast biopsy left H/O nephrolithotomy with removal of calculi (1971) History of esophagogastroduodenoscopy (EGD) History of colonoscopy Hx of tonsillectomy 1948 H/O melanoma excision Hx of cholecystectomy Family History Brother Family history of diabetes mellitus Other No family history of adverse response to anesthesia No pertinent family history Social History Smoking Status: Never smoker Second Hand Exposure: No; Do You Dip or Chew Tobacco: No; Hx Alcohol Use: No Hx Substance Use: No Preferred Language: Nam[place]ian Communication Ability: Effective Visual Impairment: No Limitations Hearing Ability: Normal Dancing Teacher Required: No Beliefs That Will Affect Care: None marital status: Current Living Situation: Spouse current occupational status: retired current occupation: [employer]; [employer] How many Children do You have: 4 Feels Safe at Home: Yes Safety Concerns: Feels Safe At This Time Childhood Exposure to Second-Hand Smoke: No caffeine: No Dental Care, Regularly: Yes Physical Activity Frequency: Other Physical Activity Frequency Comment: House work Seatbelt Use: sometimes Sunscreen Use: No Assistive Devices: Glasses Review of Systems Review of Systems: See HPI above Physical Exam Physical Exam: General: no acute distress; pleasant affect; non-toxic appearing; well- nourished; cooperative; SpO2 97% on RA HEENT: normocephalic, atraumatic; no scleral icterus; PERRLA w/ EOMs intact; moist mucus membrane; vision and hearing grossly intact; cerumen in the right ear, but TM is pearly boston; decreased hearing in the right ear when compared to the left; Pearly boston TM in the left ear, nonerythematous canal Neck: supple; no lymphadenopathy; trachea midline; patient can shrug shoulders against resistance without pain; however when she rotates her neck left and right this exacerbates the pain in her posterior neck bilaterally Skin: warm, dry without signs of tenting; no cyanosis; bruise on the left forearm; no rashes, lesions, or erythema noted CV: chest wall NTP; RRR; S1/S2 normal; no murmurs/rubs/gallops; pulses intact and symmetric at radial, DP, and PT Lungs: no acute respiratory distress; symmetrical chest wall expansion; clear breath sounds across all lung cook w/o adventitious sounds; no wheezing ABD: Soft, NTP; BS present; no rebound/guarding; no distention MSK: no tics or fasciculations; no edema noted in the LEs b/l, nonerythematous Neuro: A&Ox3; normal mood and affect; fluent speech; no focal deficits; sensation grossly intact in the LEs b/l Results & Data Results & Data Vital Signs (Past 12 Hours) Vital Signs Temp Pulse Resp BP BP Pulse Ox O2 Del Method 02/27/24 11:45 135/84 02/27/24 11:24 72 16 97 02/27/24 11:19 74 20 138/73 02/27/24 10:48 71 20 02/27/24 10:33 83 18 95 02/27/24 10:30 160/92 H 02/27/24 10:28 78 02/27/24 10:15 36.4 C L 78 20 155/85 H 95 Room Air Laboratory Results Abnormal lab results 02/27/24 02/27/24 Range/Units 11:00 11:55 WBC 11.44 H (4.8-10.8) K/ul MCHC 31.9 L (32.0-36.0) g/dL RDW Std Deviation 49.4 H (36.4-46.3) fL RDW Coeff of [place] 14.6 H (11.5-14.5) % Neut # (Auto) 8.72 H (1.40-6.50) K/uL [place] # (Auto) 1.09 H (0.11-0.59) K/uL APTT < 20 L (21-31) Seconds Sodium 135 L (136-145) mmol/L BUN 46 H (6-23) mg/dl Creatinine 1.46 H (0.6-1.2) mg/dl BUN/Creatinine Ratio 31.5 H (10-20) Calcium 11.2 H (8.6-10.3) mg/dl Alkaline Phosphatase 154 H (34-104) U/L Globulin 2.4 L (2.5-4.0) gm/dl Urine Nitrite Positive A (Negative) Ur Leukocyte Esterase Trace H (Negative) Urine Bacteria (Auto) 3+ H (None Seen) Diagnostic Findings Chest X-Ray 02/27/24 10:43 XR chest 1V portable HISTORY: dizziness/neck pain COMPARISON: Chest CT 01/23/2024. FINDINGS: No pneumothorax. The cardiac silhouette is normal in size. No acute fractures. The right lung is clear. Small to moderate left pleural effusion and left basilar densities have slightly progressed. No evidence for pulmonary edema. IMPRESSION: Small to moderate left pleural effusion and left basilar densities have slightly progressed. ACT 112: Negative or not required by law. Electronically signed by: Jarrell Emery M.D. 02/27/2024 11:22 AM Head CTA 02/27/24 10:43 CT angio head wo/w CLINICAL HISTORY: L neck pain, headache, dizziness COMPARISON STUDY: MRI of the brain March 20, 2016. TECHNIQUE: Unenhanced and arterial phase imaging of the head was performed. Intravenous injection of 119 cc Optiray 320 IV was uneventful. Sagittal and coronal reconstructions were viewed as well as maximal intensity projections on an independent 3-D workstation. Automated exposure control was utilized for the study. A dose lowering technique was utilized adhering to the principles of ALARA. FINDINGS: No acute intracranial hemorrhage, midline shift or mass effect is present. Ventricular system is stable. Basal cisterns are patent. There are no extra-axial collections. White matter hypodensity suggests small vessel disease. There are no findings to suggest acute dural sinus thrombosis or acute territorial infarct. There are no calvarial fractures. The bilateral M1, M2, A1 and A2 segments are patent. No intracranial vessel occlusion is identified. There is no intracranial aneurysm or dissection. There is moderate calcified plaque within the left cavernous carotids without significant stenosis. There is persistence of the right posterior cerebral artery. Posterior circulation is intact. IMPRESSION: 1. No acute intracranial findings. 2. No intracranial vessel occlusion. No intracranial aneurysm. ACT 112: Negative or not required by law. Electronically signed by: Ernesto Cobb M.D. 02/27/2024 12:15 PM Neck CTA 02/27/24 10:43 NECK CTA HISTORY: L neck pain, headache, dizziness TECHNIQUE: Multiaxial CT images of the neck were performed following the intravenous administration of contrast to evaluate the major cervical vessels. 3D/MIP images were also obtained. Sagittal and coronal reformats were reviewed. All measurements were calculated based on NASCET criteria. A dose lowering technique was utilized adhering to the principles of ALARA. COMPARISON STUDY: Chest CTA 01/23/2024 FINDINGS: The aortic arch and proximal great vessels are widely patent. There is no significant stenosis, occlusion, or dissection identified within the bilateral common carotid, internal carotid, or vertebral arteries. Partially visualized small left pleural effusion again noted. There is a focal branching irregular density within the right upper lobe on image 10. This remains unchanged compared to the recent chest CT. This measures up to 11 mm in thickness. IMPRESSION: 1. No significant stenosis, occlusion, or dissection identified within the carotid or vertebral arteries. 2. Partially visualized small left pleural effusion again noted. 3. No change in the focal branching irregular density within the right upper lo be. Continued chest CT follow-up recommended to ensure stability/resolution. ACT 112: Negative or not required by law. Electronically signed by: Jarrell Emery M.D. 02/27/2024 12:17 PM ECG Additional Comments: ECG revealed sinus rhythm with premature SVC's at 69 bpm; QTc 413 Code Status & VTE Plan Code Status DNR/DNI (confirmed with both patient and her at the bedside) VTE Prophylaxis Plan VTE Prophylaxis will be ordered: Yes Supervising Physician Co-Signing Physician Notes PA Supervision Note: I personally saw and examined the patient. I verified all truong points and agree with PANDA Winter with the following exceptions and/or additions: S-patient is an 88-year-old female with a history of multiple cancers as noted above here with persistent headache left-sided neck pain and dizziness for the last 2 weeks along with some previous back pain. She was treated with prednisone as an outpatient She is hypercalcemic here and recently reports increasing her vitamin D intake to 5000 units daily. She is also continuing to take HCTZ O- Vitals reviewed Gen: AAOx3, NAD HEENT: Anicteric sclerae, EOMI, PERRLA, neck with positive tenderness to palpation over cervical spine more so on the left paraspinous muscles. Small nodule felt in left anterior neck CV: RRR no mgr nl S1S2 Pulm: CTAB no wcr Abd: +BS soft NT ND no masses or hernias Ext: No edema Skin: No rashes, warm/dry Neuro: Full strength throughout, cranial nerves II through XII intact except sense of smell is off CBC, CMP, magnesium, coags, UA reviewed Head and neck CTA, chest x-ray reviewed A/D-89-atcb-old female here with headaches, neck pain, dizziness, and hypercalcemia which is considered mild but symptomatic I do feel her symptoms could be from hypercalcemia but given extensive history of multiple cancers, certainly could have a brain tumor Check MRI of the brain with contrast which would look for tumor or intracranial mass otherwise as well as sinus infection Hydrate with IV fluids, consider Lasix in the morning for hypercalcemia Hypercalcemia seems to be related to primary hyperparathyroidism, but also high vitamin D levels and HCTZ are contributing-hold both of these medications Would need follow-up with endocrinology as an outpatient Check CoVid-19 due to poor taste and sense of smell and headache PG Care Time/CCT Total # of Minutes Spent Total Time Spent with Patient: Total time spent is greater than 50% in coordination of care (as documented) at patient's floor/unit and/or counseling patient: Coding [place] [address] INT INP/OBS CARE 3/75MIN Patient Type Established Medical Decision Making High Complexity Diagnoses Acute neck pain M54.2 Headache R51.9 Headache chronicity pattern: acute headache Headache type: unspecified Intractability: not intractable Ambulatory dysfunction R26.2 Hypercalcemia E83.52 Hx of cancer of lung Z85.118 Asymptomatic bacteriuria R82.71 (2) Headache Headache chronicity pattern: acute headache Headache type: unspecified Intractability: not intractable Qualified Code(s): R51.9 - Headache, unspecified
[2024-02-27] MEDS: SODIUM CHLORIDE 0.9% 1,000 ML IV SCH (16:36)
[2024-02-27] MEDS ORDERED: COLESTIPOL HCL 1 GM TAB PO PRN (16:36)
[2024-02-27] MEDS ORDERED: MECLIZINE 12.5 MG TAB PO PRN (16:36)
[2024-02-27] MEDS ORDERED: ONDANSETRON INJ 2 MG/ML 2 ML VIAL IV PRN (16:36)
[2024-02-27] MEDS ORDERED: oxyCODONE HCL IR 5 MG TAB (IMMEDIATE RELEASE) PO PRN (16:36)
[2024-02-27] MEDS ORDERED: FLUTICASONE PROPIONATE NA SPR 16 GM BTL PRN (16:45)
[2024-02-27] MEDS ORDERED: IPRATROPIUM BROMIDE NASAL SPRAY 0.06% 15ML NAE PRN (16:48)
[2024-02-27] MEDS: GADOBUTROL 65ML VIAL IV ONE (20:55)
[2024-02-27] MEDS: MAGNESIUM SULFATE / D5W 1 GM/100 ML BAG IV ONE (21:22)
--- NOTE | 2024-02-27 21:22 | Magnetic Resonance Report ---
MR brain wo/w con CLINICAL HISTORY: R ear hearing loss; L occipital neck pain; hx ofCA TECHNIQUE: Multiplanar and multisequence MR images of the brain were obtained prior to and following administration of gadolinium contrast. Comparison: Comparison is made to MRI head 03/20/2013 and CTA head and neck 02/27/2024 FINDINGS: No abnormal restricted diffusion is identified. Foci of T2 and FLAIR hyperintensity are noted in the paraventricular areas consistent with chronic small vessel ischemic disease. Ex vacuo ventriculomegal y and sulcal enlargement is noted compatible with diffuse volume loss. No mass or abnormal enhancemen t is seen. There is no mass effect or midline shift. There is no evidence of acute intraparenchymal h emorrhage. No extra axial fluid collections are seen. The corpus callosum, pituitary gland, and cereb ellar tonsils appear grossly unremarkable. Flow voids of the major intracranial arterial vessels are identified. The imaged portions of the para nasal sinuses, mastoid air cells, and orbits are unremarkable. IMPRESSION: No acute abnormality and in particular no evidence of metastatic disease. ACT 112: Negative or not required by law. Electronically signed by: Gopi Mosley M.D. 02/27/2024 9:20 PM
[2024-02-27 23:09] LABS: Influenza A virus by PCR Negative (Neg); Influenza B virus by PCR Negative (Neg); RSV by PCR Negative (Neg); SARS CoV2 RNA(COVID-19) Ceph NEGATIVE (Negative)
--- NOTE | 2024-02-27 23:15 | Electrocardiogram Report ---
Test Reason : Blood Pressure : / mmHG Vent. Rate : 069 BPM Atrial Rate : 069 BPM P-R Int : 136 ms QRS Dur : 084 ms QT Int : 386 ms P-R-T Axes : 048 027 042 degrees QTc Int : 413 ms Sinus rhythm with Premature ventricular complexes Otherwise normal ECG When compared with ECG of 10-OCT-2023 12:45, Premature ventricular complexes are now Present Confirmed by Reza Fiore ([id number]) on 02/27/2024 11:15:34 PM Referred By: REFERRED SELF Confirmed By:Reza Fiore
[2024-02-28] MEDS: allopurinoL 100 MG TAB PO SCH (08:19)
[2024-02-28 08:25] LABS: Basophils # (auto) 0.06 K/uL (0.00-0.20); Basophils % (auto) 0.5 %; Eosinophils # (auto) 0.29 K/uL (0.00-0.50); Eosinophils % (auto) 2.2 %; Hemoglobin 12.5 g/dl (12.0-16.0); Immature Granulocytes % (auto) 0.8 %; Lymphocytes # (auto) 1.72 K/uL (1.20-3.40); Lymphocytes % (auto) 13.1 %; Mean Corpuscular Hemoglobin 29.3 pg (25.0-34.0); Mean Corpuscular Hgb Conc 31.3 g/dL (32.0-36.0); Mean Corpuscular Volume 93.7 fL (80.0-100.0); Mean Platelet Volume 10.9 fL (9.4-12.4); Monocytes # (auto) 0.96 K/uL (0.11-0.59); Monocytes % (auto) 7.3 %; Neutrophils # (auto) 9.96 K/uL (1.40-6.50); Neutrophils % (auto) 76.1 %; Platelet Count 271 K/uL (130-400); RDW Coefficient of Variation 14.8 % (11.5-14.5); RDW Standard Deviation 51.4 fL (36.4-46.3); Red Blood Count 4.27 M/uL (4.20-5.40); White Blood Count 13.09 K/ul (4.8-10.8)
[2024-02-28 08:36] LABS: Albumin Globulin Ratio 1.6 (0.9-2); Albumin Level 3.5 gm/dl (3.4-5.0); BUN Creatinine Ratio 24.6 (10-20); Bilirubin,Total 0.6 mg/dl (0.2-1.0); Calcium 9.9 mg/dl (8.6-10.3); Est GFR (African American) 38.7 ml/min; Est GFR (Non-African American) 33.4 ml/min; Globulin 2.2 gm/dl (2.5-4.0); Magnesium 1.8 mg/dl (1.7-2.4); Phosphorus 2.5 mg/dl (2.5-4.9); Potassium 4.4 mmol/L (3.5-5.1); Total Protein 5.7 gm/dl (6.0-8.3)
[2024-02-28] MEDS: ACETAMINOPHEN 325 MG TAB PO PRN (11:27)
--- NOTE | 2024-02-28 14:38 | Discharge Summary ---
Discharge Summary Date of Service February 28, 2024 Principal Dx & Hospital Course #1 = Principal Diagnosis (1) Acute neck pain: Dizziness, left-sided posterior neck pain, and changes in taste/hearing x 2 weeks Head/neck CTA without acute findings, Brain MRI w/wo negative for stroke or intracranial mass/lesion She describes dizziness as just a feeling of sort of floating and feeling strange, but not vertigo and not presyncope/lightheadedness COVID/Flu/RSV negative Suspect neck pain, headaches may be related to hypercalcemia which has worsened lately and she reports symptoms did come on a couple of weeks ago after increasing her Vit D dose to 5000 units daily. Treating hypercalcemia as below Could also be tension headache from neck strain and taking hydrocodone which makes her "sleepy" but does not help the pain-stop hydrocodone Treat neck spasm with flexeril at bedtime, acetaminophen (2) Headache: Could be related to hypercalcemia, sinus infection, intracranial mass Checked brain MRI with contrast-negative. COuld be from hypercalcemia? Tension headache from neck pain no viral illness Treating hypercalcemia Pain medication as noted above-flexeril (3) Hypercalcemia: Hypercalcemia at 11.2 on arrival. With headaches and musculoskeletal complaints, could be symptomatic hypercalcemia She is on HCTZ at home as well as recently increased her vitamin D to 5000 units daily from 1999 received IVF resuscitation with NSS at 125mL/hr x 2 L PTH elevated at 132 on 02/08; Likely Primary hyperparathyroidism Parathyroid related protein ordered, sent out given h/o malignancy Vitamin D level 72 on 02/08-Hold vitamin D supplements phosphorus normal Will add on Lasix for diuretic as she does get peripheral edema and this would also help hypercalcemia Calcium went down to 9.9 on day of discharge F/u with PCP and check BMP in 1 week (4) Ambulatory dysfunction: No recent falls, but patient reports she feels off balance when walking PT/OT evaluations appreciated-recommend home Brain MRI negative (5) Hx of cancer of lung: Hx of lung, breast, ovarian, and colon cancer s/p radiation completion in Jun 2022 Colon cancer resection in 2022 (6) Asymptomatic bacteriuria: UA 3+ bacteria on arrival Leukocytosis at 11.44 on arrival; in the setting of recent prednisone taper Clinically, patient denies burning w/ urination / urinary symptoms Will defer abx Plan Disposition: discharge to home DNR/DNI VTE PPx: William rico Notes For Next Care Provider Check BMP in 1 week Medication Changes From Visit Discontinue Vitamin D supplement Discontinue HCTZ Start lasix 20mg po daily Added Flexeril 5-10mg po q8h prn neck pain Admission HPI Per Admitting Provider Zeina is a pleasant 88-year-old female with PMH of stage I adenocarcinoma of the lung, DCIS of left breast, colon cancer s/p resection, ovarian cancer, TIA, cervicalgia, mixed stress and urge incontinence, lumbar radiculopathy, osteoporosis, chronic anemia, gout, and C. difficile colitis. She presented for left-sided neck and head pain, headache, dizziness, and ambulatory dysfunction x 2 weeks. Patient reports that the headache is in the middle of her forehead, and this is new for her; she rarely got headaches in the past, but she is now having them daily. Patient also endorses left-sided, posterior neck pain with occasional radiation to the right posterior neck. She describes it as a dull, achy, constant pain; 6/10 at present. She reports that the lidocaine patch in the ED and home medications have not been helping; takes hydrocodone at bedtime, but this only helps with her sleep and not with the pain. She has difficulty characterizing her dizziness; denies that the room is spinning, or she feels like she is going to pass out, but reports that she just feels off. No history of vertigo. She denies any recent falls or injuries to the head or neck. No PMH of strokes, but she does note she had a "mini stroke" in the past. She denies strokelike symptoms such as slurred speech, facial droop, or unilateral deficits. Patient took all of her regular morning medications today. She manages her own medicine at home. She recently finished IV prednisone taper for her left neck pain, but this did not help; took the last dose yesterday. She does have a history of radiation therapy for her lungs in 2021, but she is not currently on radiation therapy or chemotherapy. She did have a tumor removed from her colon last year. She is unsure when her hearing loss started, but believes her change in taste has been ongoing for the past several months. She reports that she eats well, but her weight has remained around the same; she reports she lost a lot of weight after her C. difficile infection in September 2023. She reports she is not currently on any medication for hypercalcemia. She denies smoking, tobacco use, or alcohol use. Patient's vitals are stable at time of admission. ED course: NSS 250 mL IV Acetaminophen 1000 mg IV Lidocaine patch ROS: Patient endorses SANTAMARIA, dizziness (but not like the room is spinning), left-sided neck pain, difficulty swallowing, dysgeusia, productive cough (clear phlegm), abdominal pain, and intermittent diarrhea. Patient denies fever, chills, night-sweats, changes in weight, syncope, lightheadedness, falls, changes in vision, chest pain/pressure, chest p alpitations, , pleuritic CP, N/V, changes in urinary/bowel habits, burning with urination, dysuria, saddle anesthesia, or numbness/tingling in the arms or legs. Discharge Exam Constitutional WD/WN, vitals as above Respiratory normal respiratory effort, lungs clear to auscultation Cardiovascular RRR, no murmur, no edema Gastrointestinal (Abdomen) normal bowel sounds, soft, nontender, no hepatosplenomegaly Psychiatric Orientation: alert and oriented x 3 Updated Medication List Medication Instructions Recorded Confirmed Type cyanocobalamin (vitamin B-12) 1,000 mcg PO Q2D 05/23/19 03/02/24 History 1,000 mcg tablet vit C 250 mg-vit E 200 unit-zinc 1 tab PO BID 11/28/20 03/02/24 History 12.5 mg-copper 1 [id number]-lpekha tablet (ICaps AREDS2 (copper citrate)) nitroglycerin 0.4 mg sublingual 0.4 mg sublingual Q5M PRN chest 09/05/21 03/02/24 Rx tablet pain #20 tabs allopurinol 100 mg tablet 100 mg PO QAM #90 tabs 03/27/23 03/02/24 Rx colestipol 1 gram tablet 1 g PO UD PRN Diarrhea 12/08/23 03/02/24 History inulin 2 gram chewable tablet 4 g PO QAM 02/04/24 03/02/24 History (Fiber Gummies) [id number]-nikoee 1 tab PO QAM 02/04/24 03/02/24 History tablet (Multivitamin 50 Plus tablet) fluticasone furoate 27.5 2 spray intranasal UD PRN Other 02/09/24 03/02/24 History mcg/actuation nasal spray,suspension ipratropium bromide 21 mcg (0.03 2 spray intranasal BID PRN allergy 02/09/24 03/02/24 Rx %) nasal spray symptoms #30 mL hydrocodone 5 mg-acetaminophen 325 1 tab PO BID PRN pain #60 tabs 02/24/24 03/02/24 Rx mg tablet acetaminophen 325 mg tablet 650 mg (2 x 325 mg) PO Q4H PRN 02/28/24 03/02/24 Rx pain #30 tabs cyclobenzaprine 5 mg tablet 5 - 10 mg (1 - 2 x 5 mg) PO HS PRN 02/28/24 03/02/24 Rx neck pain or headache #30 tabs furosemide 20 mg tablet (Lasix) 20 mg PO DAILY #30 tabs 02/28/24 03/02/24 Rx Hospital Stay Data Consultations 02/27/24 13:51 ED Decision to Admit Stat Diagnostic Imagining Performed 02/27/24 10:43 CTA head wo/w [CT angio head wo/w] Stat CTA neck with con [CT angio neck with con] Stat 02/27/24 15:43 MRI Brain [MR brain wo/w con] Stat Pending Results Patient Have Any Pending Studies at Discharge: Yes (Parathyroid related protein, urine culture) Discharge Instructions Given to Patient (Per Discharging Provider) You were admitted with ongoing neck pain, headache, and dizziness. You were also found to be hypercalcemic. You had a brain MRI that was normal, and CT angiograms of the head and neck which did not show any aneurysms or abnormalities of the blood vessels. It is possible that your high calcium levels are contributing to your headache and neck pain. For this, you were given IV fluids and will be started on lasix to replace your HCTZ. You should also stop taking your vitamin D supplement. You also have an elevated parathyroid hormone and will be referred to Endocrinology for further evaluation of this as this can cause high calcium levels. You will also be given Flexeril (cyclobenzaprine) to take 1-2 tablets at bedtime as a muscle relaxer to help your neck pain. Sometimes neck pain can cause tension headaches. Since your headache did not improve with steroids, it most likely is not from an abnormality in the blood vessels or a migraine headache. The headache and neck pain may also be from high calcium levels and hopefully as your calcium levels comes down, your pain will improve. Please have repeat blood work to test your calcium levels in 1 week. Your urine has bacteria growing in it but you are not having any urinary symptoms and this does not need to be treated with antibiotics especially in light of your history of severe C. diff infection (antibiotics can bring on C. diff). Please follow up closely with your PCP after discharge. Total Time Total Time Spent Total Time Spent (In Minutes): 40 min Total Time Includes: Examination of the Patient, Discharge Planning and Medication Reconciliation Coding Level of Care Code 44487 INP/OBS DISCH >30 MIN Diagnoses Acute neck pain M54.2 Headache R51.9 Headache chronicity pattern: acute headache Headache type: unspecified Intractability: not intractable Hypercalcemia E83.52 Ambulatory dysfunction R26.2 Hx of cancer of lung Z85.118 Asymptomatic bacteriuria R82.71
== END 2024-02-28 16:26 | disposition home or self-care (01) | DRG 552 ==
LOC: SUATTDRO → ED 10:09 → INTOOBSV 14:58 → 2N 14:58